=== PATIENT | female | born 1940 | race Two or more races ===

== ENCOUNTER 2017-10-31 03:57 | Inpatient (IN) | payer OTHER, MEDICAID ==
[~2017-10-31] VITALS: Ht 165.1 cm; Wt 69.9 kg
[2017-10-31 05:20] LABS: Eosinophils # (auto) 0 uL
[2017-10-31 05:22] LABS: Basophils # (auto) 0.1 uL; Basophils % (auto) 0.5 % (0.0-2.0); Eosinophils % (auto) 0.1 % (0.0-7.0); Hematocrit 38.1 % (36.0-46.0); Hemoglobin 12.7 g/dL (12.2-16.2); Lymphocytes # (auto) 1.2 uL; Lymphocytes % (auto) 7.4 % (10.0-50.0); Mean Corpuscular Hgb Conc. 33.3 g/dL (32.0-36.0); Mean Corpuscular Volume 74.9 fL (80.0-100.0); Monocytes # (auto) 0.4 uL; Monocytes % (auto) 2.5 % (0.0-12.0); Neutrophils # (auto) 14.2 uL; Neutrophils % (auto) 89.5 % (37.0-80.0); Platelet Count (auto) 387 10^3/uL (140-450); Red Blood Cells 5.09 10^6/uL (4.0-5.20); Red Cell Distribution Width 15.7 % (11.8-14.3); White Blood Cell 15.9 10^3/uL (4.4-10.8)
[2017-10-31 05:39] LABS: Alanine Aminotransferase 15 U/L (13-56); Albumin 3.4 g/dL (3.4-5.0); Anion Gap 9 (5-15); Aspartate Aminotransferase 13 U/L (15-37); BUN/Creatinine Ratio 20.6; Blood Urea Nitrogen 21 mg/dL (7-18); Calcium 7.5 mg/dL (8.5-10.1); Carbon Dioxide 25 mmol/L (21-32); Chloride 94 mmol/L (98-107); GFR African American 68 mL/min; GFR Non-African American 56 mL/min; Glucose 168 mg/dL (74-106); Magnesium 2.2 mg/dL (1.6-2.6); Potassium 3.3 mmol/L (3.5-5.1); Sodium 128 mmol/L (136-145)
[2017-10-31 05:44] LABS: Alkaline Phosphatase 49 U/L (45-117); Bilirubin, Total 0.5 mg/dL (0.2-1.0); Total Protein 7.2 g/dL (6.4-8.2)
[2017-10-31] MEDS ORDERED: SODIUM CHLORIDE 0.9% 1,000 ML IV ONE (06:15)
[2017-10-31] MEDS ORDERED: POTASSIUM CHL 20MEQ/100ML 100 ML IV ONE (06:15)
[2017-10-31 06:22] LABS: INR 0.92 (0.9-1.15); Prothrombin Time 9.9 sec (9.27-12.13)
[2017-10-31] MEDS ORDERED: DEXTROSE (50%) 50ML SYRG IV PRN (06:30)
[2017-10-31] MEDS ORDERED: ONDANSETRON HCL 4 MG/2 ML VIAL IV PRN (06:30)
[2017-10-31] MEDS ORDERED: ACETAMINOPHEN 500 MG TAB PO PRN (06:30)
[2017-10-31] MEDS ORDERED: HYDROcodone-ACET 5/325MG TAB PO PRN (06:30)
[2017-10-31 06:36] LABS: Urine Bacteria NONE SEEN /hpf (None Seen); Urine Blood Negative /uL (Negative); Urine Hyaline Cast FEW /lpf (0 - 2); Urine Mucus FEW (None Seen); Urine Specific Gravity 1.021 (1.001-1.035); Urine WBC 2 /hpf (0 - 5)
[2017-10-31] MEDS: InsuLIN REG 1unit/0.01ml Soln (100units/ml) SC SCH ×4 (07:00→21:59)
[2017-10-31] MEDS: ACCU-CHEK COMFORT CURVE STRIP VI SCH ×4 (07:00→21:56)
[2017-10-31 07:20] LABS: Partial Thromboplastin Time 26.1 sec (23.78-33.04)
[2017-10-31] MEDS ORDERED: ASPirin-EC 81 mg tab PO ONE (13:45)
[2017-10-31] MEDS: SODIUM CHLORIDE 0.9% 1,000 ML IV SCH ×2 (14:03→21:55)
[2017-10-31 17:00] VITALS: BP 133/62
[2017-10-31] MEDS ORDERED: GABA100C9 PO (18:15)
[2017-10-31] MEDS ORDERED: ALEN70TA2 PO (18:15)
[2017-10-31] MEDS ORDERED: METF-370 PO (18:15)
[2017-10-31] MEDS ORDERED: HYDR-2551 PO (18:15)
[2017-10-31] MEDS ORDERED: LOVA20TA4 PO (18:15)
[2017-10-31] MEDS ORDERED: LISI-646 PO (18:17)
[2017-10-31] MEDS: ATORVASTATIN 20 MG TAB PO SCH (21:55)
[2017-10-31 22:00] VITALS: BP 138/74
[2017-11-01] VITALS (7 sets, daily range): BP systolic 135–163; BP diastolic 65–84
[2017-11-01] MEDS: ACCU-CHEK COMFORT CURVE STRIP VI SCH (06:35)
[2017-11-01] MEDS: InsuLIN REG 1unit/0.01ml Soln (100units/ml) SC SCH (06:35)
[2017-11-01 07:50] LABS: Albumin 3.1 g/dL (3.4-5.0); BUN/Creatinine Ratio 14.5; Bilirubin, Total 0.6 mg/dL (0.2-1.0); Calcium 7.6 mg/dL (8.5-10.1); Magnesium 2.3 mg/dL (1.6-2.6); Potassium 3.4 mmol/L (3.5-5.1); Total Protein 6.4 g/dL (6.4-8.2)
[2017-11-01] MEDS: ASPirin-EC 81 mg tab PO SCH (08:45)
[2017-11-01 10:33] LABS: Basophils # (auto) 0 uL; Eosinophils # (auto) 0.1 uL; Lymphocytes # (auto) 1.6 uL; Lymphocytes % (auto) 19.8 % (10.0-50.0); Red Blood Cells 4.15 10^6/uL (4.0-5.20)
[2017-11-01 10:36] LABS: Basophils % (auto) 0.6 % (0.0-2.0); Eosinophils % (auto) 1.3 % (0.0-7.0); Hematocrit 32.1 % (36.0-46.0); Hemoglobin 10.6 g/dL (12.2-16.2); Mean Corpuscular Hemoglobin 25.5 pg (28.0-32.0); Mean Corpuscular Hgb Conc. 32.9 g/dL (32.0-36.0); Mean Corpuscular Volume 77.3 fL (80.0-100.0); Monocytes # (auto) 0.7 uL; Monocytes % (auto) 9.3 % (0.0-12.0); Neutrophils # (auto) 5.5 uL; Platelet Count (auto) 315 10^3/uL (140-450)
[2017-11-01] MEDS ORDERED: POTASSIUM CHL 20 Meq TABLET PO ONE (11:00)
[2017-11-01 12:08] LABS: % Iron Saturation 13.3 % (15-50)
[2017-11-01] MEDS: ATORVASTATIN 20 MG TAB PO SCH (21:53)
[2017-11-01] MEDS: SODIUM CHLORIDE 0.9% 1,000 ML IV SCH (21:53)
[2017-11-02 05:00] VITALS: BP 147/69
[2017-11-02 06:34] LABS: Basophils # (auto) 0.1 uL; Eosinophils # (auto) 0.2 uL; Monocytes # (auto) 0.9 uL; Red Cell Distribution Width 15.9 % (11.8-14.3)
[2017-11-02 06:36] LABS: Basophils % (auto) 0.7 % (0.0-2.0); Eosinophils % (auto) 2.9 % (0.0-7.0); Hematocrit 33.7 % (36.0-46.0); Hemoglobin 11.2 g/dL (12.2-16.2); Lymphocytes # (auto) 2.1 uL; Lymphocytes % (auto) 25.2 % (10.0-50.0); Mean Corpuscular Hemoglobin 25.3 pg (28.0-32.0); Mean Corpuscular Hgb Conc. 33.4 g/dL (32.0-36.0); Mean Corpuscular Volume 75.7 fL (80.0-100.0); Monocytes % (auto) 10.6 % (0.0-12.0); Neutrophils % (auto) 60.6 % (37.0-80.0); Platelet Count (auto) 325 10^3/uL (140-450); Red Blood Cells 4.45 10^6/uL (4.0-5.20); White Blood Cell 8.2 10^3/uL (4.4-10.8)
[2017-11-02 06:59] LABS: Calcium 8.2 mg/dL (8.5-10.1); Potassium 3.6 mmol/L (3.5-5.1)
[2017-11-02 07:01] LABS: BUN/Creatinine Ratio 16.4
[2017-11-02 08:00] VITALS: BP 158/86
[2017-11-02 09:13] VITALS: BP 158/80
[2017-11-02 12:04] VITALS: BP 156/70
[2017-11-02] MEDS: ASPirin-EC 81 mg tab PO SCH (12:06)
[2017-11-02 17:13] VITALS: BP 168/93
[2017-11-02] MEDS: ATORVASTATIN 20 MG TAB PO SCH (22:00)
[2017-11-02 22:01] VITALS: BP 168/83
[2017-11-03] MEDS ORDERED: cloNIDine HCL 0.1 MG TAB PO ONE (00:30)
[2017-11-03 06:06] VITALS: BP 120/72
[2017-11-03 08:00] VITALS: BP 130/66
[2017-11-03] MEDS ORDERED: ADENOSINE 59 MG in GIVE UN-DILUTED 0 ML IV ONE (08:00)
[2017-11-03 08:28] VITALS: BP 149/80
[2017-11-03] MEDS: ASPirin-EC 81 mg tab PO SCH (10:42)
[2017-11-03 12:17] VITALS: BP 145/73
[2017-11-03 16:41] VITALS: BP 149/74
== END 2017-11-03 17:05 | disposition home or self-care (01) | DRG 312 ==
LOC: ER 04:00 → TELE 04:01 → TELE-CENTR 16:25
PROVIDERS: ADMIT Nurse Practitioner Family; ATTEND Internal Medicine
DX: R55 Syncope and collapse (principal); E87.1 Hypo-osmolality and hyponatremia; I67.82 Cerebral ischemia; E87.5 Hyperkalemia; E87.6 Hypokalemia; D72.829 Elevated white blood cell count, unspecified; N18.9 Chronic kidney disease, unspecified; M48.00 Spinal stenosis, site unspecified; K59.00 Constipation, unspecified; I25.10 Atherosclerotic heart disease of native coronary artery without angina pectoris; H71.90 Unspecified cholesteatoma, unspecified ear; E11.22 Type 2 diabetes mellitus with diabetic chronic kidney disease; I13.10 Hypertensive heart and chronic kidney disease without heart failure, with stage 1 through stage 4 chronic kidney disease, or unspecified chronic kidney disease; H26.9 Unspecified cataract; E78.5 Hyperlipidemia, unspecified; E86.0 Dehydration; H70.92 Unspecified mastoiditis, left ear; I25.2 Old myocardial infarction; Z82.5 Family history of asthma and other chronic lower respiratory diseases; Z79.899 Other long term (current) drug therapy; Z98.41 Cataract extraction status, right eye
CPT/HCPCS: 36415; 70450; 70551; 71045; 72125; 78452; 80048; 80053; 80061; 81001; 82962; 83036; 83540; 83550; 83735; 83880; 84443; 84484; 85025; 85610; 85730; 87040; 87086; 93005; 93017; 93306; 93886; 95819; 96360; 96361; J0153; J1815; J3480

== ENCOUNTER 2018-08-11 00:44 | Emergency (ER) | payer OTHER, MEDICAID ==
[~2018-08-11] VITALS: Ht 160 cm; Wt 69.4 kg
[~2018-08-11 00:44] MED LIST: ALEN70TA2 PO; GABA100C9 PO; HYDR-2551 PO; LISI-646 PO; LOVA20TA4 PO; METF-370 PO
[2018-08-11 02:03] LABS: Basophils # (auto) 0.1 uL; Eosinophils # (auto) 0.2 uL; Lymphocytes # (auto) 1.9 uL
[2018-08-11 02:05] LABS: Basophils % (auto) 0.8 % (0.0-2.0); Eosinophils % (auto) 1.6 % (0.0-7.0); Hematocrit 31.3 % (36.0-46.0); Hemoglobin 10.8 g/dL (12.2-16.2); Lymphocytes % (auto) 17.8 % (10.0-50.0); Mean Corpuscular Hemoglobin 26.2 pg (28.0-32.0); Mean Corpuscular Hgb Conc. 34.6 g/dL (32.0-36.0); Mean Corpuscular Volume 75.7 fL (80.0-100.0); Monocytes # (auto) 0.9 uL; Monocytes % (auto) 8.6 % (0.0-12.0); Neutrophils # (auto) 7.7 uL; Neutrophils % (auto) 71.2 % (37.0-80.0); Platelet Count (auto) 323 10^3/uL (140-450); Red Blood Cells 4.14 10^6/uL (4.0-5.20); Red Cell Distribution Width 14.9 % (11.8-14.3); White Blood Cell 10.9 10^3/uL (4.4-10.8)
[2018-08-11 02:21] LABS: Alanine Aminotransferase 18 U/L (13-56); Albumin 3.8 g/dL (3.4-5.0); Anion Gap 13 (5-15); Aspartate Aminotransferase 19 U/L (15-37); BUN/Creatinine Ratio 12.7; Blood Urea Nitrogen 13 mg/dL (7-18); Calcium 8.7 mg/dL (8.5-10.1); Carbon Dioxide 25 mmol/L (21-32); Chloride 93 mmol/L (98-107); GFR African American 68 mL/min; GFR Non-African American 56 mL/min; Glucose 116 mg/dL (74-106); Potassium 3.1 mmol/L (3.5-5.1); Sodium 131 mmol/L (136-145)
[2018-08-11 02:26] LABS: Alkaline Phosphatase 53 U/L (45-117); Bilirubin, Total 0.4 mg/dL (0.2-1.0); Total Protein 7.8 g/dL (6.4-8.2)
[2018-08-11 03:01] LABS: Partial Thromboplastin Time 27.9 sec (23.64-32.05)
[2018-08-11 03:04] LABS: INR 0.91 (0.9-1.15)
[2018-08-11 07:07] LABS: Urine Bacteria NONE SEEN /hpf (None Seen); Urine Blood 1+ /uL (Negative); Urine Specific Gravity 1.006 (1.001-1.035); Urine WBC 1 /hpf (0 - 5)
[2018-08-11] MEDS ORDERED: SODIUM CHLORIDE 0.9% 1,000 ML IV ONE (07:21)
[2018-08-11] MEDS ORDERED: METOCLOPRAMIDE HCL 5MG/ml INJ 2ml VIAL IV ONE (07:30)
[2018-08-11] MEDS ORDERED: KETOROLAC TROMETH 30 MG/ML 1ML VIAL IV ONE (07:30)
[2018-08-11] MEDS ORDERED: POTASSIUM EFFERVESENT TAB 25 MEQ PO ONE (08:00)
[2018-08-11 10:06] VITALS: BP 136/66
== END 2018-08-11 10:05 | disposition home or self-care (01) ==
LOC: ER 00:44
DX: M47.892 Other spondylosis, cervical region (principal); E87.6 Hypokalemia; E04.1 Nontoxic single thyroid nodule; H70.92 Unspecified mastoiditis, left ear; E11.9 Type 2 diabetes mellitus without complications; E78.5 Hyperlipidemia, unspecified; I10 Essential (primary) hypertension; Z79.84 Long term (current) use of oral hypoglycemic drugs
CPT/HCPCS: 36415; 71045; 72125; 80053; 81001; 83735; 84484; 85025; 85610; 85730; 93005; 94761; 96374; 96375; 99284; J1885; J2765; J7030; 96361

== ENCOUNTER 2019-10-31 04:27 | Inpatient (IN) | payer OTHER, MEDICAID ==
[~2019-10-31] VITALS: Ht 167.6 cm; Wt 78.5 kg
[2019-10-31] MEDS ORDERED: ACCU-CHEK COMFORT CURVE STRIP VI ONE (04:45)
[2019-10-31 05:21] LABS: Basophils # (auto) 0 10 ^3/uL (0-0.2); Basophils % (auto) 0.3 % (0.0-2.0); Eosinophils # (auto) 0 10 ^3/uL (0-0.8); Hemoglobin 10.9 g/dL (12.2-16.2); Lymphocytes # (auto) 0.1 10 ^3/uL (0.4-5.4); Mean Corpuscular Volume 81.2 fL (80.0-100.0); Monocytes # (auto) 0 10 ^3/uL (0-1.3); Monocytes % (auto) 1.9 % (0.0-12.0); Neutrophils # (auto) 1.4 10 ^3/uL (1.6-8.6)
[2019-10-31 05:25] LABS: Urine Bacteria NONE SEEN /hpf (None Seen); Urine Blood 2+ /uL (Negative); Urine Specific Gravity 1.007 (1.001-1.035); Urine WBC <1 /hpf (0 - 5)
[2019-10-31] MEDS ORDERED: SODIUM CHLORIDE 0.9% 1,000 ML IV ONE (05:30)
[2019-10-31 05:31] LABS: Hematocrit 32.4 % (36.0-46.0); Lymphocytes % (auto) 8.9 % (10.0-50.0); Mean Corpuscular Hemoglobin 27.3 pg (28.0-32.0); Mean Corpuscular Hgb Conc. 33.6 g/dL (32.0-36.0); Neutrophils % (auto) 88.9 % (37.0-80.0); Platelet Count (auto) 212 10^3/uL (140-450); Red Blood Cells 3.99 10^6/uL (4.0-5.20); Red Cell Distribution Width 17.9 % (11.8-14.3)
[2019-10-31 05:33] LABS: White Blood Cell 1.5 10^3/uL (4.4-10.8)
[2019-10-31 05:50] LABS: Albumin 3.9 g/dL (3.4-5.0); BUN/Creatinine Ratio 14.9; Bilirubin, Total 1.2 mg/dL (0.2-1.0); Calcium 8.8 mg/dL (8.5-10.1); Total Protein 7.8 g/dL (6.4-8.2)
[2019-10-31 05:54] LABS: Potassium 2.7 mmol/L (3.5-5.1)
[2019-10-31] MEDS: POTASSIUM CHL 20MEQ/100ML 100 ML IV SCH ×2 (06:31→08:30)
[2019-10-31 06:54] LABS: Amylase 1269 U/L (25-115); Lipase 18695 U/L (73-393)
[2019-10-31] MEDS ORDERED: DEXTROSE (50%) 50ML SYRG IV PRN (09:15)
[2019-10-31] MEDS ORDERED: MORPHINE SULF INJ 2 MG/ML SYRINGE 1ML IV PRN (09:15)
[2019-10-31] MEDS ORDERED: cefTRIAXone 1GM/50ML D5W 50 ML IV ONE (09:15)
[2019-10-31] MEDS ORDERED: NITROGLYCERIN 0.4 MG SL TAB SL PRN (09:15)
--- NOTE | 2019-10-31 10:19 | NUR ---
Telemetry admit from [facility] admitted to Telemetry unit after SBAR received. Patient oriented to Flex rodriguez RN, unit, room, bed, and unit policies regarding patient care and visiting hours. Patient now on continuous telemetry monitoring, tele box # 63 and telemetry reading on arrival to unit is NSR 88. Patient, weighed by bedscale and encouraged to call if they need something. All questions and concerns addressed, patient verbalized understanding. Note: Patient was admitted to 275B per w/c from MRI after MRCP was done. Patient noted to be aa0x4, pleasant and cooperative and voiced no c/o pain/ discomfort at this time. Admission assessment done and charted. Plan of care, medications, treatments and safety discussed with patient and patient verbalized understanding. Bed was in lowest position with siderails upx2, brakes on and call light lwithin patient's reach. Will continue to monitor patient.
[2019-10-31] MEDS: SODIUM CHLORIDE 0.9% 1,000 ML IV SCH ×3 (11:05→22:28)
[2019-10-31] MEDS: FAMOTIDINE (10MG/ML) 2ML VL IV SCH (11:06)
[2019-10-31 12:03] VITALS: BP 139/78
[2019-10-31] MEDS: ACCU-CHEK COMFORT CURVE STRIP VI SCH ×3 (12:17→23:16)
[2019-10-31] MEDS: InsuLIN REG 1unit/0.01ml Soln (100units/ml) SC SCH ×3 (12:19→23:23)
[2019-10-31] MEDS: metroNIDAZOLE 500MG/100ML 100 ML IV SCH ×2 (14:12→22:26)
[2019-10-31] MEDS ORDERED: POTA-167 PO (14:25)
[2019-10-31] MEDS ORDERED: B-CO-5 PO (14:25)
[2019-10-31] MEDS: FILGRASTIM (TBO) 300 MCG/0.5 ML SYRG SC SCH (15:04)
[2019-10-31] MEDS ORDERED: OPTISON 3ml Vial for INJ IV ONE (15:17)
[2019-10-31 15:23] LABS: INR 1.03 (0.9-1.15); Partial Thromboplastin Time 25.2 sec (23.0-31.2)
[2019-10-31 16:38] VITALS: BP_SYST 121; BP_SYST 127; BP_DIAS 53; BP_DIAS 63
--- NOTE | 2019-10-31 19:24 | NUR ---
Opening Shift Note Assumed care of patient, awake and alert x 4. No S/S of distress/SOB or pain. Bed is in lowest position and lowest position and locked. Call light within reach. Board updated. Tele box number matches monitor and leads are in correct placement. Instructed on POC via physical damage appraiser JOANN Padgett and to call for assist PRN, will continue to monitor for changes Q1hr and PRN. Addendum: 11/01/19 at 2335 by ANIBAL ALMONTE RN Correction: JOANN Santos acted as physical damage appraiser.
--- NOTE | 2019-10-31 20:49 | NUR ---
Patient has temperature of 101.3. Cooling measures started. Will reassess in one hour.
[2019-10-31 22:00] VITALS: BP 126/63
[2019-10-31] MEDS ORDERED: ACETAMINOPHEN 325 MG TAB PO PRN (22:15)
[2019-11-01 05:00] VITALS: BP 108/62
[2019-11-01] MEDS: metroNIDAZOLE 500MG/100ML 100 ML IV SCH ×4 (05:52→21:03)
[2019-11-01] MEDS: SODIUM CHLORIDE 0.9% 1,000 ML IV SCH ×3 (05:52→20:30)
[2019-11-01] MEDS: ACCU-CHEK COMFORT CURVE STRIP VI SCH ×3 (05:52→18:27)
[2019-11-01] MEDS: InsuLIN REG 1unit/0.01ml Soln (100units/ml) SC SCH ×3 (06:00→18:00)
[2019-11-01 06:34] LABS: Basophils # (auto) 0 10 ^3/uL (0-0.2); Basophils % (auto) 0.3 % (0.0-2.0); Eosinophils # (auto) 0 10 ^3/uL (0-0.8); Eosinophils % (auto) 0.3 % (0.0-7.0); Hematocrit 25.3 % (36.0-46.0); Hemoglobin 8.8 g/dL (12.2-16.2); Lymphocytes # (auto) 0.5 10 ^3/uL (0.4-5.4); Lymphocytes % (auto) 13.8 % (10.0-50.0); Mean Corpuscular Hemoglobin 28.1 pg (28.0-32.0); Mean Corpuscular Hgb Conc. 34.7 g/dL (32.0-36.0); Monocytes # (auto) 0.1 10 ^3/uL (0-1.3); Monocytes % (auto) 1.7 % (0.0-12.0); Neutrophils # (auto) 2.9 10 ^3/uL (1.6-8.6); Neutrophils % (auto) 83.9 % (37.0-80.0); Nucleated Red Blood Cells % 0.2 %; Platelet Count (auto) 133 10^3/uL (140-450); Red Blood Cells 3.13 10^6/uL (4.0-5.20); Red Cell Distribution Width 18.4 % (11.8-14.3); White Blood Cell 3.4 10^3/uL (4.4-10.8)
--- NOTE | 2019-11-01 06:49 | NUR ---
Patient taken down to Pre-Op for ERCP with tele-box.
[2019-11-01 06:56] LABS: Albumin 2.8 g/dL (3.4-5.0); BUN/Creatinine Ratio 16.5
[2019-11-01 06:57] LABS: Potassium 2.9 mmol/L (3.5-5.1)
[2019-11-01] MEDS ORDERED: POTASSIUM CHL 20MEQ/100ML 100 ML IV ONE ×4 (07:02→12:26)
--- NOTE | 2019-11-01 07:04 | NUR ---
Patient returned to room 275a. Per OR charge nurse, anesthesiologist wants Potassium Chloride Zain 20 mEq to be given now and to then reassess potassium again after giving rider. Notify OR charge as soon as results come in. If potassium is WNL, patient may be taken back to pre-op.
[2019-11-01 07:17] LABS: Bilirubin, Total 0.6 mg/dL (0.2-1.0); Total Protein 6.3 g/dL (6.4-8.2)
[2019-11-01] MEDS: cefTRIAXone 1GM/50ML D5W 50 ML IV SCH (08:40)
[2019-11-01 09:00] VITALS: BP 122/68
[2019-11-01] MEDS ORDERED: FAMOTIDINE (10MG/ML) 2ML VL IV SCH (10:00)
[2019-11-01] MEDS: FAMOTIDINE (10MG/ML) 2ML VL IV SCH (10:12)
[2019-11-01] MEDS: FILGRASTIM (TBO) 300 MCG/0.5 ML SYRG SC SCH (11:16)
[2019-11-01 11:37] LABS: Albumin 3.2 g/dL (3.4-5.0); Calcium 7.5 mg/dL (8.5-10.1); Potassium 3.1 mmol/L (3.5-5.1)
[2019-11-01 11:40] LABS: BUN/Creatinine Ratio 14.2; Bilirubin, Total 0.7 mg/dL (0.2-1.0); Total Protein 7.3 g/dL (6.4-8.2)
--- NOTE | 2019-11-01 12:00 | NUR ---
NOTIFY PRE OP RN ABOUT K+ RESULT OF 3.1 AFTER K RIDER. WILL CALL ME BACK IF DR. CALLE WILL HAVE ERCP DONE TODAY.
--- NOTE | 2019-11-01 12:10 | NUR ---
PRE OP RN CALLED AND STATED THAT THEY ARE GOING TO HAVE ERCP DONE TODAY AND WANT THE PATIENT DOWN TO PRE OP. PATIENT MADE AWARE OF IT.
--- NOTE | 2019-11-01 12:25 | NUR ---
BROUGHT PATIENT DOWN TO PACU FOR ERCP PER BED WITH TELE BOX ON IN STABLE CONDITION.
[2019-11-01] MEDS ORDERED: IOHEXOL 300 MG/ML 100ML BOTTLE IJ ONE (12:46)
[2019-11-01] MEDS ORDERED: MIDAZOLAM HCL 1MG/1ML-2 ML VIAL ONE (13:10)
[2019-11-01] MEDS ORDERED: MEPERIDINE HCL (25 MG/ML) 1ML VIAL ONE (13:10)
[2019-11-01] MEDS ORDERED: fentaNYL CITRATE 100 MCG/2 ML VL ONE (13:10)
[2019-11-01] MEDS ORDERED: GLUCAGON HYDROCHLORIDE (RDNA) 1 MG VIAL IV ONE (13:45)
[2019-11-01] MEDS ORDERED: ONDANSETRON HCL 4 MG/2 ML VIAL ONE (14:28)
[2019-11-01] MEDS ORDERED: ePHEDrine SULFATE 50 MG/ML AMP IV PRN (14:30)
[2019-11-01] MEDS ORDERED: LABETALOL HCL 5 MG/ML 4ML SYRINGE IV PRN (14:30)
[2019-11-01] MEDS ORDERED: MIDAZOLAM HCL 1MG/1ML-2 ML VIAL IV PRN (14:30)
[2019-11-01] MEDS ORDERED: ONDANSETRON HCL 4 MG/2 ML VIAL IV PRN (14:30)
[2019-11-01] MEDS ORDERED: DexAMETHasone SOD PHOS 10MG/1ML VIAL INJ ONE (14:44)
[2019-11-01] MEDS ORDERED: PROPOFOL 10 MG/ML 20 ML IV ONE (14:44)
--- NOTE | 2019-11-01 15:37 | NUR ---
PATIENT RETURNED TO HER ROOM PER BED S/P ERCP SLEEPING BUT EASILY AWAKENED WITH O2 AT 4L/NC. REPORT RECEIVED FROM JAIMIE HAYS FROM PACU PRIOR TO PATIENT'S RETURN. PATIENT VOICED NO C/O AGUILAR AND WAS IN NO DISTRESS. WILL CONTINUE TO MONITOR PATIENT.
[2019-11-01 17:00] VITALS: BP 115/63
--- NOTE | 2019-11-01 17:00 | NUR ---
Patient more awake at this time and went to the bathroom to void with steady gait. No c/o pain/ discomfort and patient was in no distress. Will continue to monitor patient.
--- NOTE | 2019-11-01 19:35 | NUR ---
Opening Shift Note Assumed care of patient, awake and alert x 4. No S/S of distress/SOB or pain. Bed is in lowest position and lowest position and locked. Call light within reach. Board updated. Tele box number matches monitor and leads are in correct placement. Instructed on POC via criminal justice professor JOANN Padgett and to call for assist PRN, will continue to monitor for changes Q1hr and PRN.
--- NOTE | 2019-11-01 20:10 | NUR ---
Spoke to MD Garner and confirmed that he is aware of the ERCP results from today. MD Gu does not intend to performed surgery tomorrow, only that patient should be kept NPO and to test Amylase and Lipase in the AM.
[2019-11-01] MEDS: MORPHINE SULF INJ 2 MG/ML SYRINGE 1ML IV PRN (21:14)
[2019-11-01 22:00] VITALS: BP 143/72
[2019-11-02] MEDS: ACCU-CHEK COMFORT CURVE STRIP VI SCH ×4 (00:02→17:12)
--- NOTE | 2019-11-02 00:10 | NUR ---
Holding regular insulin for blood glucose of 140 mg/dl. Patient is currently NPO.
[2019-11-02] MEDS: SODIUM CHLORIDE 0.9% 1,000 ML IV SCH ×4 (01:08→21:44)
[2019-11-02 05:00] VITALS: BP 145/78
[2019-11-02 05:46] LABS: Hematocrit 25.8 % (36.0-46.0); Hemoglobin 8.7 g/dL (12.2-16.2); Mean Corpuscular Hemoglobin 27.7 pg (28.0-32.0); Mean Corpuscular Hgb Conc. 33.8 g/dL (32.0-36.0); Platelet Count (auto) 94 10^3/uL (140-450); Red Blood Cells 3.15 10^6/uL (4.0-5.20); Red Cell Distribution Width 18.8 % (11.8-14.3); White Blood Cell 5.3 10^3/uL (4.4-10.8)
[2019-11-02 05:52] LABS: Basophils % (manual) 0 (0.0-2.0); Blast Cells 0; Eosinophils % (manual) 0 (0-7); Myelocytes % 0; Promyelocytes % 0; Reactive Lymphocytes 0
[2019-11-02 06:07] LABS: Albumin 2.5 g/dL (3.4-5.0); BUN/Creatinine Ratio 18.4; Calcium 7.3 mg/dL (8.5-10.1); Magnesium 1.6 mg/dL (1.6-2.6); Potassium 3.9 mmol/L (3.5-5.1)
[2019-11-02 06:13] LABS: Band Neutrophils % (manual) 18; Lymphocytes % (manual) 12 (10.0-50.0); Metamyelocytes % 2; Monocytes % (manual) 2 (0-12)
[2019-11-02 06:15] LABS: Bilirubin, Total 3.3 mg/dL (0.2-1.0); Total Protein 6.1 g/dL (6.4-8.2)
[2019-11-02] MEDS: metroNIDAZOLE 500MG/100ML 100 ML IV SCH ×3 (06:25→21:44)
[2019-11-02] MEDS: InsuLIN REG 1unit/0.01ml Soln (100units/ml) SC SCH ×4 (06:45→17:14)
--- NOTE | 2019-11-02 08:00 | NUR ---
Morning note Patient resting in bed with even and unlabored respirations, no distress noted. Instructed patient through translation on POC, fall precautions and to call for assistance as needed. Patient verbalized understanding. Fall precautions in place with call light within reach.
[2019-11-02] MEDS: FILGRASTIM (TBO) 300 MCG/0.5 ML SYRG SC SCH (08:44)
[2019-11-02] MEDS: FAMOTIDINE (10MG/ML) 2ML VL IV SCH (08:44)
[2019-11-02] MEDS: cefTRIAXone 1GM/50ML D5W 50 ML IV SCH (08:44)
[2019-11-02 09:00] VITALS: BP 128/69
[2019-11-02] MEDS: ONDANSETRON HCL 4 MG/2 ML VIAL IV PRN ×3 (10:43→20:50)
--- NOTE | 2019-11-02 11:00 | NUR ---
Family called for an update Password obtained. Update provided. Phone call transferred to bedside phone.
--- NOTE | 2019-11-02 11:14 | NUR ---
Family called for an update Password obtained. Update provided.
[2019-11-02 13:00] VITALS: BP 147/88
[2019-11-02] MEDS: MORPHINE SULF INJ 2 MG/ML SYRINGE 1ML IV PRN ×2 (13:35→18:35)
--- NOTE | 2019-11-02 13:50 | NUR ---
was at bedside - Dr. Banuelos This RN was at bedside. POC translated to patient. Patient verbalized understanding. Notified MD of current lab results. MD aware.
--- NOTE | 2019-11-02 15:19 | NUR ---
Nutrition Assessment Notes Please refer to link for full assessment notes. Est Energy needs: 7239-2748 kcals (20-23 kcal/kgBW) Est Protein needs: 73-80 gms/day (1.0-1.1 gm/kgBW) Will continue to monitor and reassess prn. Addendum: 11/02/19 at [address] Amended: Links added.
[2019-11-02 17:00] VITALS: BP 156/72
--- NOTE | 2019-11-02 18:07 | NUR ---
Family called for an update Password obtained. Update provided. Phone call transferred to bedside phone.
--- NOTE | 2019-11-02 18:19 | NUR ---
Patient had episode of vomiting No blood noted. Patient has been medicated for nausea per MD order.
--- NOTE | 2019-11-02 18:26 | NUR ---
Closing note Patient resting in bed with even and unlabored respirations, no distress noted. Fall precautions in place with call light within reach.
--- NOTE | 2019-11-02 19:01 | NUR ---
Care endorsed to LIS Grimm.
--- NOTE | 2019-11-02 20:52 | NUR ---
open note assumed care of pt. upon entering room pt awake, alert and oriented. pt on room air no distress noted or expressed. pt oriented to this nurse and updated on plan of care. pt reports some nausea this nurse to medicate per MD and MAR order. pt denies any pain at this time. pt bed locked, low and 2x rails up. call light in reach, this nurse to round q1hr and prn.
[2019-11-02 22:00] VITALS: BP 167/80
[2019-11-02] MEDS ORDERED: LISINOPRIL 20 MG TAB PO ONE (22:15)
[2019-11-03] MEDS: MORPHINE SULF INJ 2 MG/ML SYRINGE 1ML IV PRN ×3 (00:25→13:40)
[2019-11-03 05:00] VITALS: BP 164/86
[2019-11-03] MEDS: SODIUM CHLORIDE 0.9% 1,000 ML IV SCH (05:37)
[2019-11-03] MEDS: metroNIDAZOLE 500MG/100ML 100 ML IV SCH ×3 (05:46→23:29)
[2019-11-03 06:16] LABS: Hemoglobin 9.9 g/dL (12.2-16.2)
[2019-11-03 06:18] LABS: Hematocrit 27.9 % (36.0-46.0); Mean Corpuscular Hemoglobin 28.3 pg (28.0-32.0); Mean Corpuscular Hgb Conc. 35.3 g/dL (32.0-36.0); Mean Corpuscular Volume 80.2 fL (80.0-100.0); Platelet Count (auto) 55 10^3/uL (140-450); Red Blood Cells 3.48 10^6/uL (4.0-5.20); Red Cell Distribution Width 19.9 % (11.8-14.3); White Blood Cell 17.4 10^3/uL (4.4-10.8)
[2019-11-03] MEDS: InsuLIN REG 1unit/0.01ml Soln (100units/ml) SC SCH ×4 (06:22→16:45)
[2019-11-03] MEDS: ACCU-CHEK COMFORT CURVE STRIP VI SCH ×4 (06:22→16:41)
[2019-11-03 06:23] LABS: Basophils % (manual) 0 (0.0-2.0); Blast Cells 0; Eosinophils % (manual) 0 (0-7); Promyelocytes % 0; Reactive Lymphocytes 0
[2019-11-03 06:51] LABS: BUN/Creatinine Ratio 17.4; Bilirubin, Total 13.9 mg/dL (0.2-1.0); Calcium 7.6 mg/dL (8.5-10.1); Total Protein 6.1 g/dL (6.4-8.2)
[2019-11-03] MEDS: FILGRASTIM (TBO) 300 MCG/0.5 ML SYRG SC SCH (07:18)
--- NOTE | 2019-11-03 07:18 | NUR ---
RE: medication held Tbo-Filgrastim held d/t elevated WBC.
--- NOTE | 2019-11-03 07:55 | NUR ---
Received critical potassium level Paged on-call hospitalist to notify.
[2019-11-03 07:59] LABS: Potassium 2.9 mmol/L (3.5-5.1)
[2019-11-03] MEDS: FAMOTIDINE (10MG/ML) 2ML VL IV SCH (08:04)
[2019-11-03] MEDS: ONDANSETRON HCL 4 MG/2 ML VIAL IV PRN ×2 (08:05→13:40)
[2019-11-03] MEDS: cefTRIAXone 1GM/50ML D5W 50 ML IV SCH (08:05)
[2019-11-03] MEDS: LISINOPRIL 20 MG TAB PO SCH (08:08)
--- NOTE | 2019-11-03 08:08 | NUR ---
Patient reports N/V Patient medicated per MD order. Patient has emesis bag at bedside. Respirations even and unlabored, no distress noted. Call light within reach.
[2019-11-03 09:00] LABS: Band Neutrophils % (manual) 15; Lymphocytes % (manual) 17 (10.0-50.0); Metamyelocytes % 1; Monocytes % (manual) 2 (0-12); Myelocytes % 2
[2019-11-03 09:11] VITALS: BP 155/73
--- NOTE | 2019-11-03 09:13 | NUR ---
Paged Dr. Banuelos RE: critical potassium level.
--- NOTE | 2019-11-03 09:17 | NUR ---
Notified Dr. Banuelos RE: abnormal lab values Notified MD of abnormal value for: WBC, Potassium, PLT, Total Bilirubin, AST, ALT and Alkaline phos. MD verbalized understanding. Orders received and read back to verify.
--- NOTE | 2019-11-03 09:22 | NUR ---
RE: Moira Called pharmacy to request medication be sent to the unit. tattoo technician verbalized understanding.
[2019-11-03] MEDS ORDERED: VANCOMYCIN PER PHARMACY 0 MG IV SCH (09:30)
[2019-11-03] MEDS ORDERED: POTASSIUM CHLORIDE 60 MEQ, LIDOCAINE 1% (LOCAL ANESTH.) 6 ML in SODIUM CHL 0.9% 500 ML IV ONE (09:30)
--- NOTE | 2019-11-03 11:10 | NUR ---
IV started 22g IV started to the LWR with aseptic technique. IV secured and IV education translated to the patient. Patient verbalized understanding. Call light within reach.
[2019-11-03] MEDS: D5W/SOD CHL 0.45%/KCL 40MEQ 1,000 ML IV SCH ×2 (11:32→19:53)
--- NOTE | 2019-11-03 11:32 | NUR ---
Patient transferred to room 270B Patient ambulated to room with a steady gait accompanied by staff member. All personal belongings transferred with the patient.
[2019-11-03] MEDS ORDERED: VANCOMYCIN 1GM/250ML 250 ML IV ONE (12:00)
--- NOTE | 2019-11-03 12:00 | NUR ---
RE: Scheduled Vancomycin Medication to be administered after lab obtains second set of blood cultures.
[2019-11-03 12:21] VITALS: BP 148/90
--- NOTE | 2019-11-03 13:50 | NUR ---
Patient reports N/V with ABD pain Patient medicated per MD order. Respirations even and unlabored, no distress noted.
--- NOTE | 2019-11-03 14:10 | NUR ---
POC discussed with MD POC discussed with Dr. Banuelos. Notified MD of patient's report of N/V. Order received and read back to verify.
--- NOTE | 2019-11-03 14:45 | NUR ---
RE: Flagyl IV access to the LWR infiltrated. K-rider continues to be administered in LAC. Will administer Flagyl IV once K-rider has completed.
[2019-11-03 16:40] VITALS: BP 152/74
--- NOTE | 2019-11-03 16:53 | NUR ---
Patient resting in bed; denies N/V Patient resting in bed with even and unlabored respirations, no distress noted. Patient requesting bed bath prior to surgery. Endorsed to Adrienne, professional nursing assistant. Fall precautions in place with call light within reach.
[2019-11-03 18:22] LABS: BUN/Creatinine Ratio 17.9; Calcium 7.1 mg/dL (8.5-10.1); Potassium 3.2 mmol/L (3.5-5.1)
--- NOTE | 2019-11-03 18:42 | NUR ---
Paged on-call hospitalist RE: current potassium level Dr. Spence on-call hospitalist.
--- NOTE | 2019-11-03 18:46 | NUR ---
Notified on-call hospitalist of current potassium lab value Dr. Spence verbalized understanding. Order received and read back to verify.
--- NOTE | 2019-11-03 18:48 | NUR ---
RE: Moira Called pharmacy to request medication be sent to the unit. fire protection equipment technician verbalized understanding.
--- NOTE | 2019-11-03 19:10 | NUR ---
Care endorsed to LIS Grimm. Patient resting in bed with even and unlabored respirations, no distress noted. Fall precautions in place with call light within reach.
[2019-11-03] MEDS ORDERED: POTASSIUM CHLORIDE 40 MEQ, LIDOCAINE 1% (LOCAL ANESTH.) 4 ML in SODIUM CHL 0.9% 100 ML IV ONE (19:30)
--- NOTE | 2019-11-03 20:02 | NUR ---
open note assumed care of pt. upon entering room pt awake and alert, on 2L nc no s/s distress noted or expressed. pt denies any pain, this nurse updated pt on plan of care via educational sign language interpreter. pt bed locked, low and 2x rails up. call light in reach, this nurse to round q1hr and prn. pt encouraged to call as needed.
[2019-11-03 22:00] VITALS: BP 160/77
[2019-11-04 05:00] VITALS: BP 155/89
[2019-11-04] MEDS: metroNIDAZOLE 500MG/100ML 100 ML IV SCH (06:09)
[2019-11-04] MEDS: D5W/SOD CHL 0.45%/KCL 40MEQ 1,000 ML IV SCH ×2 (06:09→18:13)
[2019-11-04] MEDS: ACCU-CHEK COMFORT CURVE STRIP VI SCH ×5 (06:09→23:50)
[2019-11-04] MEDS: InsuLIN REG 1unit/0.01ml Soln (100units/ml) SC SCH ×5 (06:10→23:51)
[2019-11-04 06:20] LABS: Hemoglobin 7.8 g/dL (12.2-16.2)
[2019-11-04 06:22] LABS: Hematocrit 22.3 % (36.0-46.0); Mean Corpuscular Hemoglobin 27.4 pg (28.0-32.0); Mean Corpuscular Hgb Conc. 34.9 g/dL (32.0-36.0); Mean Corpuscular Volume 78.3 fL (80.0-100.0); Red Blood Cells 2.85 10^6/uL (4.0-5.20); White Blood Cell 12.7 10^3/uL (4.4-10.8)
[2019-11-04 06:31] LABS: BUN/Creatinine Ratio 18.3; Calcium 7.4 mg/dL (8.5-10.1); Potassium 3.8 mmol/L (3.5-5.1)
[2019-11-04 06:42] LABS: Platelet Count (auto) 22 10^3/uL (140-450); Red Cell Distribution Width 20.9 % (11.8-14.3)
[2019-11-04 06:43] LABS: Basophils % (manual) 0 (0.0-2.0); Blast Cells 0; Eosinophils % (manual) 0 (0-7); Reactive Lymphocytes 0
--- NOTE | 2019-11-04 07:15 | NUR ---
Opening Shift Note Assumed care of patient, who is alert and oriented x4. Respirations are even and unlabored. No S/S of distress/SOB or pain. Bed is low, locked with 2x side rails up. Call light is within reach. Instructed on POC and to call for assist PRN, will continue to monitor for changes Q1hr and PRN.
[2019-11-04 07:49] LABS: Band Neutrophils % (manual) 16; Lymphocytes % (manual) 11 (10.0-50.0); Metamyelocytes % 16; Monocytes % (manual) 4 (0-12); Myelocytes % 7; Promyelocytes % 1
--- NOTE | 2019-11-04 08:15 | NUR ---
Patient taken to pre-op Patient taken to pre-op for scheduled surgery with Dr. Gu. IV to L AC patent and intact. Consents signed and filed in chart. No distress noted upon departure.
[2019-11-04 08:48] VITALS: BP 179/85
[2019-11-04] MEDS: cefTRIAXone 1GM/50ML D5W 50 ML IV SCH (09:29)
[2019-11-04] MEDS: MORPHINE SULF INJ 2 MG/ML SYRINGE 1ML IV PRN ×2 (09:30→22:34)
[2019-11-04] MEDS: LISINOPRIL 20 MG TAB PO SCH (09:30)
[2019-11-04] MEDS: PROMETHAZINE HCL 25 MG/ML 1ML IV PRN (09:30)
--- NOTE | 2019-11-04 10:00 | NUR ---
Dr. Deal at bedside Dr. Shaikh jose. Updating patient on POC. New orders received to start PPN nutrition. Orders read back and verified. Made MD aware of elevated blood pressure. MD to input new orders for blood pressure control. Will continue to monitor Q1hr and PRN.
[2019-11-04] MEDS: FAMOTIDINE (10MG/ML) 2ML VL IV SCH (10:05)
[2019-11-04] MEDS ORDERED: PPN PER PHARMACY 0 ML IV SCH (10:15)
[2019-11-04] MEDS: MEROPENEM 500MG IVPB 50 ML IV SCH ×2 (11:17→22:33)
[2019-11-04] MEDS: ENALAPRILAT 1.25 MG/ML-1ML VIAL IV PRN ×2 (11:30→22:18)
[2019-11-04 11:32] LABS: Magnesium 2.2 mg/dL (1.6-2.6); Pre Albumin 13.1 mg/dL (20.0-40.0)
[2019-11-04 11:39] LABS: Phosphorus 0.8 mg/dL (2.5-4.90)
--- NOTE | 2019-11-04 11:40 | NUR ---
Abhishek Deal RE: critical lab Received a call from lab. Critical Phosphorus: 0.8 Abhishek TAYLOR to make aware of critical lab value.
[2019-11-04 12:45] LABS: Hepatitis A Ab IgM Negative
[2019-11-04 12:46] LABS: Hepatitis B Core IgM Negative; Hepatitis B Surface Antigen Negative (Negative); Hepatitis C Antibody Negative (Negative)
[2019-11-04 13:00] VITALS: BP 169/75
[2019-11-04] MEDS ORDERED: POTASSIUM PHOSPHATE 22 MEQ in SODIUM CHL 0.9% 100 ML IV ONE (13:00)
--- NOTE | 2019-11-04 13:39 | NUR ---
Abhishek Deal RE: Blood pressure. This nurse administered PRN Enalapril BP: 168/78 HR:75. Upon reassessment BP: 169/75 HR: 75. Abhishek TAYLOR to notify.
--- NOTE | 2019-11-04 13:45 | NUR ---
Midline Placement: Patient educated on need for midline placement. All risks and benefits explained and all questions and concerns addresses prior to procedure. 18 g/10 cm midline inserted via Left Basilic vein using Ultrasound. Sterile technique utilized. Blood return obtained from the single lumen and flushed easily with NS using proper technique. Midline secured with saline lock; biodisc and occlusive dressing applied. Primary RN Rea notified. Midline lot # [id number]
--- NOTE | 2019-11-04 13:52 | NUR ---
Nutrition Followup Note Wt 77.0kg Pt was sleeping at time of rounds with no family at bedsides. Pt is NPO d/t acute pancreatitis, pt with TPN ordered at 42 ml/hr which provides 540 kcal, 50g protein, 340 NPC. This provides 32-37% of energy needs and 63-68% of protein needs. Consider advancing TPN to meet >75% of needs Est Energy needs: 4624-1383 kcals (20-23 kcal/kgBW) Est Protein needs: 73-80 gms/day (1.0-1.1 gm/kgBW) Will continue to monitor and reassess prn. Labs: Na 146H, BUN 41H, Creat 2.24H, GLUC 129H, Alb 2.8L Ca 7.4L BM: Pt with 1 BM 11/02 per RN note Skin: Bs 20 low risk, full details in behavioral health care manager note. PES: 1) Increased nutrient needs r/t pt with no PO intake aeb pt is currently NPO 2) Altered nutrition related lab values r/t current medical condition aeb elevated pancreatic enzymes, hyperglycemia, hyperbilirubinemia, elev LFTs, mod hypoalbuminemia Comments: Will continue to monitor PO status, skin status, pertinent labs and weight trends. Will f/u in 2-3 days. 1) Continue to carefully monitor pt NPO status 2) Gradually advance pt to CCHO 45g oral diet when medically feasible and as tolerated 3) Continue current plan of care Expected Outcomes/Goals: Pt to advance to an oral diet Pt labs to improve
[2019-11-04] MEDS ORDERED: VANCOMYCIN 1GM/250ML 250 ML IV ONE (14:00)
--- NOTE | 2019-11-04 14:48 | NUR ---
Paging MD Paging MD again in regards to blood pressure. Waiting for call back.
[2019-11-04 17:00] VITALS: BP 166/83
--- NOTE | 2019-11-04 17:47 | NUR ---
Paging councilperson MD Dr. Spence RE: Blood pressure Current BP: 175/81 HR: 79. Paging MD to make aware of elevated BP. Patient is asymptomatic at this time. Waiting for call back.
--- NOTE | 2019-11-04 17:50 | NUR ---
Received call back Received new orders for Labetalol IV. Orders read back and verified. (see orders).
[2019-11-04] MEDS ORDERED: LABETALOL HCL 5 MG/ML 4ML SYRINGE IV ONE (18:00)
[2019-11-04] MEDS ORDERED: DEXTROSE (50%) 50ML SYRG IV SCH (18:00)
[2019-11-04 19:12] VITALS: BP 152/84
--- NOTE | 2019-11-04 19:25 | NUR ---
Opening Shift Note Received report from Rea HAYS. Assumed care of patient, awake and alert. No S/S of distress/SOB or pain. Instructed on POC and to call for assist PRN, will continue to monitor for changes Q1hr and PRN.
[2019-11-04] MEDS ORDERED: PPN PER PHARMACY IV NR ×5 (20:00)
[2019-11-04 22:00] VITALS: BP 170/87
--- NOTE | 2019-11-04 23:30 | NUR ---
BP: 170/87, PRN Enalapril given. Reassessed BP, now 152/69. Continue care.
[2019-11-05] VITALS (7 sets, daily range): BP systolic 161–182; BP diastolic 69–84
[2019-11-05] MEDS: MORPHINE SULF INJ 2 MG/ML SYRINGE 1ML IV PRN ×2 (03:51→23:58)
[2019-11-05] MEDS: D5W/SOD CHL 0.45%/KCL 40MEQ 1,000 ML IV SCH ×3 (04:20→21:45)
[2019-11-05] MEDS: ACCU-CHEK COMFORT CURVE STRIP VI SCH ×4 (05:45→23:50)
[2019-11-05] MEDS: ENALAPRILAT 1.25 MG/ML-1ML VIAL IV PRN (05:46)
[2019-11-05] MEDS: InsuLIN REG 1unit/0.01ml Soln (100units/ml) SC SCH ×4 (05:50→23:59)
[2019-11-05 06:03] LABS: Hemoglobin 7.2 g/dL (12.2-16.2)
[2019-11-05 06:05] LABS: Hematocrit 20.6 % (36.0-46.0); Mean Corpuscular Hemoglobin 27.4 pg (28.0-32.0); Mean Corpuscular Hgb Conc. 34.9 g/dL (32.0-36.0); Mean Corpuscular Volume 78.5 fL (80.0-100.0); Red Blood Cells 2.62 10^6/uL (4.0-5.20); White Blood Cell 11.5 10^3/uL (4.4-10.8)
[2019-11-05 06:15] LABS: Red Cell Distribution Width 20.6 % (11.8-14.3)
[2019-11-05 06:17] LABS: Platelet Count (auto) 10 10^3/uL (140-450)
[2019-11-05 06:20] LABS: Basophils % (manual) 0 (0.0-2.0); Blast Cells 0; Eosinophils % (manual) 0 (0-7); Reactive Lymphocytes 0
[2019-11-05 06:23] LABS: Albumin 2.6 g/dL (3.4-5.0); Calcium 7.6 mg/dL (8.5-10.1); Potassium 3.6 mmol/L (3.5-5.1)
[2019-11-05 06:33] LABS: BUN/Creatinine Ratio 24.6; Bilirubin, Total 3.8 mg/dL (0.2-1.0); Phosphorus 2.1 mg/dL (2.5-4.90); Total Protein 5.7 g/dL (6.4-8.2)
--- NOTE | 2019-11-05 06:35 | NUR ---
Hospitalist paged re critical platelet of 10,000. Awaiting for call back.
[2019-11-05 06:40] LABS: Band Neutrophils % (manual) 6; Lymphocytes % (manual) 6 (10.0-50.0); Metamyelocytes % 2; Monocytes % (manual) 1 (0-12); Myelocytes % 29; Promyelocytes % 14
--- NOTE | 2019-11-05 07:15 | NUR ---
Received call back from hospitalist Awais Oliveira with order to transfuse 1 unit of platelet, will carry out the order.
--- NOTE | 2019-11-05 08:23 | NUR ---
Called Blood Bank Spoke to Allie from blood bank in regards to ordered unit of platelets. Per Allie, we do not have any available right now and platelets must be ordered. She will contact this nurse when platelets are ready for pickup driver.
--- NOTE | 2019-11-05 08:40 | NUR ---
Dr. Cline at nurses station Discussing POC with this nurse. New orders received. Orders read back and verified.
[2019-11-05] MEDS ORDERED: HYDROmorphone HCL 2 MG/ML VL IV ONE (09:00)
[2019-11-05] MEDS: PROMETHAZINE HCL 25 MG/ML 1ML IV PRN ×2 (09:19→20:27)
[2019-11-05] MEDS: FAMOTIDINE (10MG/ML) 2ML VL IV SCH (09:19)
[2019-11-05] MEDS: MEROPENEM 500MG IVPB 50 ML IV SCH ×2 (09:20→21:31)
[2019-11-05] MEDS ORDERED: HYDROmorphone HCL 2 MG/ML VL IV PRN (09:45)
[2019-11-05] MEDS ORDERED: LABETALOL HCL 5 MG/ML 4ML SYRINGE IV PRN (09:45)
[2019-11-05] MEDS ORDERED: POTASSIUM PHOSP 22MEQ(15MMOLE) in NS 100 ML IV ONE (11:00)
--- NOTE | 2019-11-05 12:20 | NUR ---
Dr. Foster and Dr. Oneill at bedside Discussing POC with patient. New orders received/ carried out. Addendum: 11/05/19 at 1237 by Rea Moreno RN RN WRONG PATIENT
--- NOTE | 2019-11-05 15:31 | NUR ---
Platelet transfusion Time transfusion started 1440 VS: T:98.6 HR:85 RR:16 BP:167/84 1455 VS: T:98.6 HR:83 RR:16 BP:166/79. No transfusion reaction noted or expressed at this time.
--- NOTE | 2019-11-05 16:45 | NUR ---
[facility] received to [place] via hospital bed on monitor and storage bin tender, and portable 02. Patient connected to unit monitoring and oxygen, [facility] Platelet transfusion in progress, will continue to monitor patient for transfusion reaction. See interventions for complete assessment. Patient primary Arabic speaking but able to understand some Belarusian. Patient oriented to Alejandra rodriguez RN, unit, room, bed, and unit policies regarding patient care and visiting hours. All questions and concerns addressed, patient verbalized understanding. Bed locked on low position, side rails up x2, bed alarms on at all times, call yu within reach, instructed to call for needed assistance. Will continue to monitor.
--- NOTE | 2019-11-05 16:47 | NUR ---
Transferred to [place] Patient transferred to [place] Room 264. Report given and care endorsed to Rosey HAYS. All questions answered. No distress noted upon departure.
--- NOTE | 2019-11-05 17:00 | NUR ---
IV insertion IV access obtained, via clean sterile technique by inserting 22 gauge catheter at LT AC after one attempt by Gladis HAYS. IV secured properly. No trauma to site. Patient tolerated procedure well.
[2019-11-05] MEDS ORDERED: TPN PER PHARMACY IV NR ×10 (20:00)
[2019-11-05] MEDS ORDERED: PPN PER PHARMACY IV NR ×10 (20:00)
--- NOTE | 2019-11-05 20:00 | NUR ---
SHIFT OPENING NOTE RECEIVED PATIENT AWAKE, ALERT AND ORIENTED X4. MALAWIAN SPEAKER. NO SOB, OR DISTRESS NOTED. 3/10 PAIN NOTED TO UPPER ABDOMEN WITH NAUSEA. WILL MEDICATE WHEN DUE. ON 2L N/C. ASSISTED TO THE BSC TO URINATE. CLEAR CAROLANN URINE NOTED. ON PPN AT 55ML/H, AND FLUIDS AT 100 ML/H. PHYSICAL ASSESSMENT COMPLETED, SEE INTERVENTIONS. INSTRUCTED ON POC AND TO CALL FOR ASSIST NEEDED. BED IS IN THE LOWEST POSITION WITH SIDE RAILS UP X2, CALL LIGHT IS WITHIN REACH.
[2019-11-05] MEDS: LABETALOL HCL 5 MG/ML ML 20ML VIAL IV PRN (20:28)
[2019-11-06] VITALS (7 sets, daily range): BP systolic 157–178; BP diastolic 61–81
--- NOTE | 2019-11-06 03:10 | NUR ---
ASSISTED TO BSC PATIENT URINATED INTO BSC. SAFELY ASSISTED BACK TO BED. ASSISTED PATIENT WITH BRUSHING TEETH. TOLERATED IT WELL.
[2019-11-06 03:35] LABS: Hematocrit 19.9 % (36.0-46.0); Mean Corpuscular Hemoglobin 27.6 pg (28.0-32.0); Mean Corpuscular Hgb Conc. 34.6 g/dL (32.0-36.0); Mean Corpuscular Volume 79.8 fL (80.0-100.0); Platelet Count (auto) 60 10^3/uL (140-450); White Blood Cell 9.5 10^3/uL (4.4-10.8)
[2019-11-06 03:40] LABS: Red Cell Distribution Width 20.9 % (11.8-14.3)
[2019-11-06 03:41] LABS: Basophils % (manual) 0 (0.0-2.0); Blast Cells 0; Eosinophils % (manual) 0 (0-7); Hemoglobin 6.9 g/dL (12.2-16.2); Reactive Lymphocytes 0
[2019-11-06 03:47] LABS: INR 1.12 (0.9-1.15); Partial Thromboplastin Time 23.6 sec (23.0-31.2)
[2019-11-06 03:51] LABS: Magnesium 2.1 mg/dL (1.6-2.6); Potassium 3.4 mmol/L (3.5-5.1)
[2019-11-06] MEDS: LABETALOL HCL 5 MG/ML ML 20ML VIAL IV PRN ×4 (03:53→22:54)
[2019-11-06] MEDS: MORPHINE SULF INJ 2 MG/ML SYRINGE 1ML IV PRN (03:58)
[2019-11-06 04:02] LABS: Albumin 2.6 g/dL (3.4-5.0); BUN/Creatinine Ratio 29.4; Bilirubin, Total 2.8 mg/dL (0.2-1.0); Calcium 7.8 mg/dL (8.5-10.1); Phosphorus 3.8 mg/dL (2.5-4.90); Total Protein 5.8 g/dL (6.4-8.2)
[2019-11-06 04:03] LABS: Band Neutrophils % (manual) 3; Lymphocytes % (manual) 17 (10.0-50.0); Metamyelocytes % 3; Monocytes % (manual) 2 (0-12); Myelocytes % 28; Promyelocytes % 8
--- NOTE | 2019-11-06 04:32 | NUR ---
SPOKE WITH HOSPITALIST MANUELA REEVES CONSTRUCTION CONSULTANT REGARDING CRITICAL HGB OF 6.9. NO ACTIVE SIGNS OF BLEEDING. ORDERED A REPEAT IN 4 HOURS.
[2019-11-06] MEDS: ACCU-CHEK COMFORT CURVE STRIP VI SCH ×4 (05:47→23:40)
[2019-11-06] MEDS: InsuLIN REG 1unit/0.01ml Soln (100units/ml) SC SCH ×4 (05:51→23:39)
--- NOTE | 2019-11-06 06:55 | NUR ---
END OF SHIFT REPORT GIVEN AND CARE ENDORSED TO FARZANEH HAYS.
[2019-11-06] MEDS: D5W/SOD CHL 0.45%/KCL 40MEQ 1,000 ML IV SCH ×2 (07:45→15:12)
--- NOTE | 2019-11-06 08:00 | NUR ---
Opening Shift Note Assumed care of patient, awake and alert. Primary Chilean speaking but able to understand Guamanian. No S/S of distress/SOB or pain. See interventions for complete assessment. Bed locked on low position, side rails up x2, bed alarms on at all times, call yu within reach, instructed on POC and to call for assist PRN, will continue to monitor for changes Q1hr and PRN.
--- NOTE | 2019-11-06 08:03 | NUR ---
Dr Villa at bedside, updated on patient's status. Patient seen and examined. Received order to give patient ice chips. Orders read back and verified. Will carry out. Will facilitate Abd and Pelvic CT.
[2019-11-06] MEDS ORDERED: POTASSIUM CHL 20MEQ/100ML 100 ML IV ONE (08:15)
[2019-11-06] MEDS ORDERED: [UNRECOGNIZED DRUG - OTHER] IV SCH ×10 (08:30)
[2019-11-06] MEDS ORDERED: POTASSIUM PHOSPHATE IV SCH ×10 (08:30)
[2019-11-06] MEDS ORDERED: POTASSIUM ACETATE IV SCH ×10 (08:30)
--- NOTE | 2019-11-06 08:45 | NUR ---
Patient out of room to CT scan.
--- NOTE | 2019-11-06 09:00 | NUR ---
Patient back to room from CT.
[2019-11-06 09:06] LABS: Hemoglobin 7.1 g/dL (12.2-16.2)
[2019-11-06 09:08] LABS: Hematocrit 20.5 % (36.0-46.0); Mean Corpuscular Hemoglobin 27.4 pg (28.0-32.0); Mean Corpuscular Hgb Conc. 34.5 g/dL (32.0-36.0); Mean Corpuscular Volume 79.4 fL (80.0-100.0); Platelet Count (auto) 65 10^3/uL (140-450); Red Blood Cells 2.59 10^6/uL (4.0-5.20); White Blood Cell 10.3 10^3/uL (4.4-10.8)
--- NOTE | 2019-11-06 09:20 | NUR ---
Dr Goodson at bedside, updated on patient's status. Patient seen and examined. Will carry out new orders.
--- NOTE | 2019-11-06 09:30 | NUR ---
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
--- NOTE | 2019-11-06 09:35 | NUR ---
Spoke to Dixie from blood bank regarding patient's Plasma pheresis exchange 1.5 x plasma volume daily. Per Dixie this RN need to call [employer] at [phone]. Spoke to Jasmina from [employer].
[2019-11-06 09:37] LABS: Red Cell Distribution Width 20.8 % (11.8-14.3)
[2019-11-06 09:58] LABS: Basophils % (manual) 0 (0.0-2.0); Blast Cells 0; Promyelocytes % 0; Reactive Lymphocytes 0
[2019-11-06 10:02] LABS: Band Neutrophils % (manual) 11; Eosinophils % (manual) 1 (0-7); Lymphocytes % (manual) 21 (10.0-50.0); Metamyelocytes % 15; Monocytes % (manual) 2 (0-12); Myelocytes % 4
--- NOTE | 2019-11-06 10:07 | NUR ---
Received call from Daphnie of [facility] ([phone]). Needed information provided. Per Daphnie consent and HD cath is needed for plasma pheresis. Will inform
[2019-11-06] MEDS: FAMOTIDINE (10MG/ML) 2ML VL IV SCH (10:27)
[2019-11-06] MEDS: MEROPENEM 1GM IVPB 100 ML IV SCH ×2 (10:27→20:57)
--- NOTE | 2019-11-06 10:35 | NUR ---
Received call from patient's daughter Allie who's able to provide password. Updated on patient's status and POC, verbalized understanding. All questions and concerns. Addressed.
--- NOTE | 2019-11-06 10:45 | NUR ---
Dr Deal at bedside. Updated on patient's status. Patient seen and examined. Will carry out new orders.
[2019-11-06] MEDS ORDERED: hydrALAZINE HCL 20 MG/ML VL IV PRN (11:00)
--- NOTE | 2019-11-06 12:19 | NUR ---
Received call from [facility] ([phone]). Needed information provided. Awaiting HD access. Paged Dr Deal because per cath lab radiology technician Sonal, Dr Guaman doesn't do temporary HD access.
--- NOTE | 2019-11-06 13:00 | NUR ---
Spoke to Dr Goodson over the phone. Received order to cancel another CBC and CMP for today. Orders received for plasma pheresis protocol.
[2019-11-06] MEDS ORDERED: CALCIUM GLUC 4.65meq/50ml D5AE 50 ML IV ONE (13:15)
--- NOTE | 2019-11-06 14:12 | NUR ---
Nutrition Followup Note Wt 75.4 kg Pt was sleeping at time of rounds with no family at bedsides. Pt is NPO d/t acute pancreatitis, pt with TPN ordered at 55 ml/hr which provides 580 kcal, 60g protein, 340 NPC. This provides 34-39% of energy needs and 75-82% of protein needs. Est Energy needs: 5153-0027 kcals (20-23 kcal/kgBW), Est Protein needs: 73-80 gms/day (1.0-1.1 gm/kgBW). Will continue to monitor and reassess prn. Labs: BUN 52 H CREAT 1.77 H AMYLASE/LIPASE 517/2818 H, GLU 173 H BM: Pt with 1 BM 11/02 per RN note Skin: Bs 19 low risk, full details in caregivers non medical note. PES: 1) Increased nutrient needs r/t pt with no PO intake aeb pt is currently NPO 2) Altered nutrition related lab values r/t current medical condition aeb elevated pancreatic enzymes, hyperglycemia, hyperbilirubinemia, elev LFTs, mod hypoalbuminemia Comments: Will continue to monitor NPO status, PN tolerance, skin status, pertinent labs and weight trends. Will f/u in 2-3 days. 1) advance PN support to meet > 75% of needs 2) Gradually advance pt to CCHO 45g oral diet when medically feasible and as tolerated 3) Continue current plan of care
--- NOTE | 2019-11-06 14:30 | NUR ---
Dr Lamb to place Hemodialysis per Dr Deal.
[2019-11-06] MEDS: methylPREDNISolone SOD SUCC 125 MG/2 ML VL IV SCH ×2 (15:12→20:54)
[2019-11-06] MEDS ORDERED: HEPARIN 1,000 UNITS/ml 1ML VIAL IV ONE (15:15)
--- NOTE | 2019-11-06 15:15 | NUR ---
PICC line placement in progress at bedside.
[2019-11-06] MEDS ORDERED: TPN PER PHARMACY 0 ML IV SCH (15:45)
--- NOTE | 2019-11-06 15:53 | NUR ---
Assessment Patient is a 79 year old female who is in [place]. Per patients daughter in law Inge prior to admission patient lived home with family and was independent. Patient has no need for DME. Per Inge patient was having severe abdominal pain so family called 911 and patient was brought here and admitted. I informed Inge I will continue to monitor and follow up as appropriate for any discharge needs. Inge verbalized understanding. Addendum: 11/06/19 at 1553 by Rosette BROWNLEE Amended: Links added.
[2019-11-06] MEDS ORDERED: SODIUM CHL 0.9% IV ONE (16:00)
[2019-11-06] MEDS ORDERED: CALCIUM GLUC IV ONE (16:00)
--- NOTE | 2019-11-06 16:12 | NUR ---
PICC line placement Patient educated on need for PICC line placement. All risks and benefits explained and all questions and concerns addressed prior to procedure. Noted past medical history and allergies with no contraindications. INR and Plt counts within acceptable range. 5 fr PICC line inserted via RIGHT BRACHIAL vein using [employer] US and Tip Location System. Sterile technique with maximum barrier precautions utilized. Blood return obtained from each of the 2 lumens and each flushed easily with NS using proper technique. PICC secured with Stat-lock; biodisc and occlusive dressing applied. Stat portable chest x-ray obtained for PICC tip placement. *Baseline Arm Circumference 32 CM. Internal length 41 cm. External length 0 cm PICC lot # [id number].
[2019-11-06] MEDS ORDERED: LIDOCAINE 1% (LOCAL ANESTH.) PF 5ml SDV ID ONE (16:15)
--- NOTE | 2019-11-06 16:15 | NUR ---
OK to use PICC line Xray completed. OK to use PICC line. PRIMARY RN FARZANEH NOTIFIED.
[2019-11-06] MEDS ORDERED: LIDOCAINE 2% (LOCAL ANESTH.) PF 5ml SDV ONE (17:00)
[2019-11-06] MEDS ORDERED: LIDOCAINE 2% (LOCAL ANESTH.) PF 5ml SDV IJ ONE (17:00)
--- NOTE | 2019-11-06 18:00 | NUR ---
RT femoral HD access placement done by Dr Lamb at bedside. Patient tolerated procedure well. VS WNL. HR 75, RR 13, BP 160/60, saturation 98% at 2 LPM oxygen via nasal cannula. Will continue to monitor patient.
--- NOTE | 2019-11-06 20:00 | NUR ---
Shift opening note: patient alert and oriented, patient is currently running TPN and IV Fluids, patient currently has a Left upper arm midline single lumen, 22 G to Left AC and double lumen picc line to the Right upper arm. patient showes no s/s of distress and denies pain at this time bed is in the lowest position with two bed rails up and bed locked in place.
[2019-11-06] MEDS: [UNRECOGNIZED DRUG - OTHER] IV SCH ×10 (20:57)
[2019-11-06] MEDS: POTASSIUM ACETATE IV SCH ×10 (20:57)
[2019-11-06] MEDS: POTASSIUM PHOSPHATE IV SCH ×10 (20:57)
[2019-11-06] MEDS: ENALAPRILAT 1.25 MG/ML-1ML VIAL IV PRN ×2 (21:02→22:43)
[2019-11-06] MEDS: SODIUM CHLOR 0.9% PF (SALINE LOCK) 10ML VIAL/SYR IV SCH (21:05)
--- NOTE | 2019-11-06 21:30 | NUR ---
patient provided with a CHG wipe bath and patient self assist oral care, complete linen change and gown change assisted patient to bedside commode patient is alert and oriented.
[2019-11-07] VITALS (11 sets, daily range): BP systolic 168–204; BP diastolic 63–81
--- NOTE | 2019-11-07 01:16 | NUR ---
patient resting quietly in bed with out s/s of distress
--- NOTE | 2019-11-07 03:00 | NUR ---
Rounding patient resting quietly in bed without s/s of distress bed in lowest position with brake applied
[2019-11-07] MEDS: D5W/SOD CHL 0.45%/KCL 40MEQ 1,000 ML IV SCH (03:45)
[2019-11-07 04:07] LABS: Platelet Count (auto) 52 10^3/uL (140-450); White Blood Cell 5.3 10^3/uL (4.4-10.8)
[2019-11-07 04:09] LABS: Hematocrit 17.1 % (36.0-46.0); Mean Corpuscular Hemoglobin 27.8 pg (28.0-32.0); Mean Corpuscular Volume 79.3 fL (80.0-100.0); Red Blood Cells 2.16 10^6/uL (4.0-5.20)
[2019-11-07] MEDS: LABETALOL HCL 5 MG/ML ML 20ML VIAL IV PRN ×4 (04:09→21:04)
[2019-11-07 04:19] LABS: Red Cell Distribution Width 20.4 % (11.8-14.3)
[2019-11-07 04:21] LABS: Basophils % (manual) 0 (0.0-2.0); Blast Cells 0; Eosinophils % (manual) 0 (0-7); Reactive Lymphocytes 0
[2019-11-07 04:24] LABS: Potassium 4.1 mmol/L (3.5-5.1)
[2019-11-07 04:32] LABS: Albumin 2.5 g/dL (3.4-5.0); BUN/Creatinine Ratio 35.2; Calcium 7.5 mg/dL (8.5-10.1); Magnesium 2.1 mg/dL (1.6-2.6); Phosphorus 4.2 mg/dL (2.5-4.90); Total Protein 5.5 g/dL (6.4-8.2)
[2019-11-07 04:37] LABS: Band Neutrophils % (manual) 7; Lymphocytes % (manual) 11 (10.0-50.0); Metamyelocytes % 9; Monocytes % (manual) 1 (0-12); Myelocytes % 22; Promyelocytes % 3
--- NOTE | 2019-11-07 05:20 | NUR ---
[facility] UPDATE Spoke with Olayinka at [employer] who stated that the HGB is to low for plasma pheresis right now. Once patient is transfused he will be able to do it and will be available around 9am. Call Olayinka at direct line [phone]
--- NOTE | 2019-11-07 05:23 | NUR ---
Spoke with Hospitalist Informed Awais Oliveira NP of the critical HGB of 6.0 new order obtained for 1 unit PRBC to be transfused
[2019-11-07] MEDS: methylPREDNISolone SOD SUCC 125 MG/2 ML VL IV SCH ×3 (06:03→20:51)
[2019-11-07] MEDS: InsuLIN REG 1unit/0.01ml Soln (100units/ml) SC SCH ×3 (06:04→17:35)
[2019-11-07] MEDS: ACCU-CHEK COMFORT CURVE STRIP VI SCH ×4 (06:05→23:47)
[2019-11-07] MEDS: ENALAPRILAT 1.25 MG/ML-1ML VIAL IV PRN (06:06)
--- NOTE | 2019-11-07 07:00 | NUR ---
REPORT RECEIVED FROM CHIEF PASSENGER SHIP STEWARD/STEWARDESS NURSE. PATIENT RESTING IN BED AT THIS TIME. RESPIRATIONS EVEN AND UNLABORED. NO SIGNS OF ACUTE DISTRESS NOTED. BED IN LOW POSITION, CALL LIGHT IN REACH. WILL CONTINUE TO MONITOR.
--- NOTE | 2019-11-07 07:11 | NUR ---
END OF SHIFT PROVIDED REPORT TO ABBI HAYS ENDORSED, REMAINDER OF BLOOD TRANSFUSION AND INFORMATION FOR PLASMA PHERESIS
--- NOTE | 2019-11-07 08:50 | NUR ---
DR CASTRO AT BEDSIDE TO ASSESS PATIENT AND DISCUSS PLAN OF CARE.
[2019-11-07] MEDS: FAMOTIDINE (10MG/ML) 2ML VL IV SCH (09:25)
--- NOTE | 2019-11-07 09:30 | NUR ---
PAGED DR GARCIA FOR PATIENTS ELEVATED BLOOD PRESSURE. AWAITING CALL BACK.
[2019-11-07] MEDS: SODIUM CHLOR 0.9% PF (SALINE LOCK) 10ML VIAL/SYR IV SCH ×2 (10:00→23:46)
--- NOTE | 2019-11-07 10:48 | NUR ---
PLASMAPHERESIS NURSE AT BEDSIDE AND TREATMENT STARTED. PATIENT TOLERATING WELL. WILL CONTINUE MONITOR.
[2019-11-07] MEDS: MEROPENEM 1GM IVPB 100 ML IV SCH ×2 (11:24→23:47)
[2019-11-07] MEDS: diphenhdrAMINE HCL 50 MG/1 ML VL IV PRN (11:37)
--- NOTE | 2019-11-07 11:37 | NUR ---
BLOOD TRANSFUSION REACTION PATIENT COMPLAINS OF A SCRATCHY THROAT, ADMINISTERED BENADRYL ORDERED. WILL CONTINUE TO MONITOR. DR NICK MADE AWARE.
[2019-11-07] MEDS ORDERED: cloNIDine 0.2 mg/24hr 7DAY PATCH TD ONE (11:45)
--- NOTE | 2019-11-07 11:54 | NUR ---
DR NICK AT BEDSIDE TO ASSESS PATIENT AND DISCUSS PLAN OF CARE. MD MADE AWARE OF PATIENTS BLOOD PRESSURE AND 1 UNIT OF PRBC GIVEN, PER MD REDRAW LABS AND REPLACE HGB WITH 1 UNIT IF LESS THAN 7. ALL ORDERS NOTED IN CHART.
[2019-11-07] MEDS: SOD CHL 0.45% 1,000 ML IV SCH (12:56)
--- NOTE | 2019-11-07 14:28 | NUR ---
DR CALLE AT BEDSIDE TO ASSESS PATIENT AND DISCUSS PLAN OF CARE. NO NEW ORDERS AT THIS TIME.
[2019-11-07 16:46] LABS: Hemoglobin 7.4 g/dL (12.2-16.2)
[2019-11-07 16:48] LABS: Hematocrit 21.3 % (36.0-46.0)
[2019-11-07] MEDS ORDERED: POTASSIUM PHOSPHATE IV NR ×10 (20:00)
[2019-11-07] MEDS ORDERED: [UNRECOGNIZED DRUG - OTHER] IV NR ×10 (20:00)
[2019-11-07] MEDS ORDERED: POTASSIUM ACETATE IV NR ×10 (20:00)
[2019-11-07] MEDS: POTASSIUM ACETATE IV SCH ×20 (20:33→21:03)
[2019-11-07] MEDS: [UNRECOGNIZED DRUG - OTHER] IV SCH ×20 (20:33→21:03)
[2019-11-07] MEDS: POTASSIUM PHOSPHATE IV SCH ×20 (20:33→21:03)
[2019-11-07] MEDS: MORPHINE SULF INJ 2 MG/ML SYRINGE 1ML IV PRN (20:50)
[2019-11-08] VITALS (8 sets, daily range): BP systolic 157–190; BP diastolic 59–73
[2019-11-08] MEDS: InsuLIN REG 1unit/0.01ml Soln (100units/ml) SC SCH ×4 (01:12→17:22)
[2019-11-08] MEDS: MORPHINE SULF INJ 2 MG/ML SYRINGE 1ML IV PRN (01:13)
[2019-11-08] MEDS: LABETALOL HCL 5 MG/ML ML 20ML VIAL IV PRN ×6 (02:15→21:11)
[2019-11-08 04:07] LABS: Hemoglobin 7.2 g/dL (12.2-16.2); Mean Corpuscular Hemoglobin 28.9 pg (28.0-32.0); Mean Corpuscular Volume 80.3 fL (80.0-100.0); Platelet Count (auto) 58 10^3/uL (140-450); Red Cell Distribution Width 18.6 % (11.8-14.3)
[2019-11-08 04:17] LABS: Basophils % (manual) 0 (0.0-2.0); Blast Cells 0; Eosinophils % (manual) 0 (0-7); Metamyelocytes % 0; Myelocytes % 0; Promyelocytes % 0; Reactive Lymphocytes 0
[2019-11-08 04:22] LABS: Albumin 2.8 g/dL (3.4-5.0); Magnesium 2.1 mg/dL (1.6-2.6); Potassium 3.1 mmol/L (3.5-5.1)
[2019-11-08 04:27] LABS: BUN/Creatinine Ratio 39.6; Bilirubin, Total 1.3 mg/dL (0.2-1.0); Phosphorus 4.7 mg/dL (2.5-4.90); Total Protein 5.4 g/dL (6.4-8.2)
[2019-11-08] MEDS: SOD CHL 0.45% 1,000 ML IV SCH ×2 (04:38→13:30)
[2019-11-08 05:11] LABS: INR 1.17 (0.9-1.15); Partial Thromboplastin Time 23.4 sec (23.0-31.2)
[2019-11-08 05:57] LABS: Band Neutrophils % (manual) 7
[2019-11-08 05:58] LABS: Lymphocytes % (manual) 19 (10.0-50.0); Monocytes % (manual) 11 (0-12)
[2019-11-08] MEDS: methylPREDNISolone SOD SUCC 125 MG/2 ML VL IV SCH ×3 (06:11→21:10)
[2019-11-08] MEDS: ACCU-CHEK COMFORT CURVE STRIP VI SCH ×3 (06:12→17:22)
--- NOTE | 2019-11-08 07:00 | NUR ---
Pt stated pain at beginning of shift but this morning after having pain medication last night denies pain. No S/S of distress. Pt remains oriented and stable. Report given, care endorsed. No other changes this shift.
--- NOTE | 2019-11-08 07:00 | NUR ---
REPORT RECEIVED FROM TRAVEL PROFESSIONAL NURSE. PATIENT ASLEEP IN BED AT THIS TIME. RESPIRATIONS EVEN AND UNLABORED. NO SIGNS OF ACUTE DISTRESS NOTED. CALL LIGHT IN REACH, BED IN LOW POSITION. WILL CONTINUE TO MONITOR.
--- NOTE | 2019-11-08 08:55 | NUR ---
MD LI SPOKE TO DR Manda CASTRO TO CLARIFY ORDERS FOR PLASMA PHERESIS. PER MD ORDER WHATEVER IS NEEDED BY PHERESIS STAFF PROTOCOL. ALL ORDERS NOTED IN CHART.
[2019-11-08] MEDS ORDERED: SODIUM CHL 0.9% IV SCH ×2 (09:15→11:15)
[2019-11-08] MEDS ORDERED: CALCIUM GLUC IV SCH ×2 (09:15→11:15)
[2019-11-08] MEDS: FAMOTIDINE (10MG/ML) 2ML VL IV SCH (09:59)
[2019-11-08] MEDS: SODIUM CHLOR 0.9% PF (SALINE LOCK) 10ML VIAL/SYR IV SCH ×2 (10:00→21:10)
--- NOTE | 2019-11-08 10:30 | NUR ---
DRESSING CHANGED TO RIGHT FEMORAL [place] CATHETER SITE USING STERILE TECHNIQUE. PATIENT TOLERATED WELL. NO REDNESS OR DRAINAGE NOTED.
[2019-11-08] MEDS: MEROPENEM 1GM IVPB 100 ML IV SCH ×2 (11:24→21:09)
[2019-11-08] MEDS: diphenhdrAMINE HCL 50 MG/1 ML VL IV PRN (11:41)
--- NOTE | 2019-11-08 11:42 | NUR ---
PLASMA PHERESIS PLASMA PHERESIS NURSE AT BEDSIDE AND PREMEDICATED PATIENT WITH BENADRYL ORDERED. ALL BLOOD PRODUCT VERIFIED PRIOR TO STARTING. PATIENT VITAL SIGNS STABLE NOTED IN CHARTING.TREATMENT STARTED A TIME PHERESIS NURSE IN PAPER CHARTING.
--- NOTE | 2019-11-08 13:40 | NUR ---
DR NICK AT BEDSIDE TO ASSESS PATIENT AND DISCUSS PLAN OF CARE. MD MADE AWARE OF PATIENTS ELEVATED BLOOD PRESSURES. NO NEW ORDERS AT THIS TIME.
--- NOTE | 2019-11-08 14:34 | NUR ---
PLASMA PHERESIS COMPLETED. PATIENT TOLERATED WELL. NO SIGNS OF ACUTE DISTRESS NOTED.
--- NOTE | 2019-11-08 14:50 | NUR ---
Nutrition Followup Note Wt 76.9 kg Pt was sleeping at time of rounds with no family at bedsides. Pt is NPO d/t acute pancreatitis, pt with TPN ordered at 67 ml/hr which provides 620 kcal, 70g protein, 340 NPC. This provides 34-39% of energy needs and 75-82% of protein needs. Est Energy needs: 3492-4930 kcals (20-23 kcal/kgBW), Est Protein needs: 73-80 gms/day (1.0-1.1 gm/kgBW). Will continue to monitor and reassess prn. Labs: BUN 557H CREAT 1.44 H, GLU 206 H BM: Pt with 1 BM today per RN note Skin: Bs 15 mod risk, full details in care team assistant note. PES: 1) Increased nutrient needs r/t pt with no PO intake aeb pt is currently NPO 2) Altered nutrition related lab values r/t current medical condition aeb elevated pancreatic enzymes, hyperglycemia, hyperbilirubinemia, elev LFTs, mod hypoalbuminemia Comments: Will continue to monitor NPO status, PN tolerance, skin status, pertinent labs and weight trends. Will f/u in 2-3 days. 1) advance PN support to meet > 75% of needs 2) Gradually advance pt to CCHO 45g oral diet when medically feasible and as tolerated 3) Continue current plan of care
--- NOTE | 2019-11-08 14:50 | NUR ---
SPOKE TO DR NICK ABOUT PATIENT HAVING SWELLING TO LEFT ARM. PER MD OBTAIN A VENOUS ULTRASOUND TO R/O DVT. ALL ORDERS NOTED IN CHART.
[2019-11-08] MEDS: POTASSIUM CHL 20MEQ/100ML 100 ML IV SCH ×2 (14:58→17:22)
--- NOTE | 2019-11-08 18:50 | NUR ---
RETARDER OPERATOR AT BEDSIDE
--- NOTE | 2019-11-08 19:18 | NUR ---
DISCONTINUED MIDLINE PATIENT TOLERATED WELL. APPLIED PRESSURE AND COBAND TO SITE. WILL CONTINUE TO MONITOR.
--- NOTE | 2019-11-08 19:40 | NUR ---
RECEIVED REPORT FROM NURSE GO REGARDING PATIENT. RESUMED CARE OF PATIENT.
[2019-11-08] MEDS ORDERED: TPN PER PHARMACY IV NR ×10 (20:00)
--- NOTE | 2019-11-08 22:05 | NUR ---
HIGH BP PATIENT BP 186/68, PATIENT IN NO APPARENT CARDIAC DISTRESS OR SOB DENIES CHEST PAIN OR ANY DISCOMFORT. ADMINISTERED LABETOLOL 10MG IV PRESCRIBED PATIENT TOLERATED.WELL.
[2019-11-09] VITALS (17 sets, daily range): BP systolic 145–213; BP diastolic 54–81
[2019-11-09] MEDS: InsuLIN REG 1unit/0.01ml Soln (100units/ml) SC SCH ×4 (00:08→19:22)
--- NOTE | 2019-11-09 00:15 | NUR ---
GLUCOSE BS 209 PATIENT IN NO APPARENT HYPERGLYCEMIA NOTED. ADMINISTERED 9 UNITS OF REGULAR INSULINS. PATIENT TOLERATED WELL IS ON TPN@83, NO ADVERSE REACTIONS NOTED.
[2019-11-09] MEDS: ACCU-CHEK COMFORT CURVE STRIP VI SCH ×4 (00:16→19:18)
[2019-11-09] MEDS: diphenhdrAMINE HCL 50 MG/1 ML VL IV PRN ×3 (02:08→17:14)
[2019-11-09] MEDS: LABETALOL HCL 5 MG/ML ML 20ML VIAL IV PRN ×2 (02:08→06:24)
--- NOTE | 2019-11-09 02:30 | NUR ---
HIGH BP PATIENT BP ELEVATED, PATIENT IN NO APPARENT CARDIAC DISTRESS OR SOB DENIES CHEST PAIN OR ANY DISCOMFORT. ADMINISTERED LABETOLOL 10MG IV PRESCRIBED PATIENT TOLERATED.WELL.
[2019-11-09 04:21] LABS: Platelet Count (auto) 62 10^3/uL (140-450); Red Cell Distribution Width 18.8 % (11.8-14.3); White Blood Cell 2.7 10^3/uL (4.4-10.8)
[2019-11-09 04:23] LABS: Hematocrit 19.2 % (36.0-46.0); Mean Corpuscular Hemoglobin 28.7 pg (28.0-32.0); Mean Corpuscular Hgb Conc. 35.9 g/dL (32.0-36.0); Red Blood Cells 2.41 10^6/uL (4.0-5.20)
--- NOTE | 2019-11-09 04:29 | NUR ---
HIGH BP PATIENT BP 186/68, PATIENT IN NO APPARENT CARDIAC DISTRESS OR SOB DENIES CHEST PAIN OR ANY DISCOMFORT. ADMINISTERED LABETOLOL 10MG IV PRESCRIBED PATIENT TOLERATED.WELL.
[2019-11-09 04:39] LABS: Magnesium 2.2 mg/dL (1.6-2.6); Potassium 3.1 mmol/L (3.5-5.1)
[2019-11-09 04:45] LABS: Hemoglobin 6.9 g/dL (12.2-16.2)
[2019-11-09 04:46] LABS: Albumin 2.8 g/dL (3.4-5.0); BUN/Creatinine Ratio 42.3; Basophils % (manual) 0 (0.0-2.0); Bilirubin, Total 1.1 mg/dL (0.2-1.0); Blast Cells 0; Calcium 7.3 mg/dL (8.5-10.1); Eosinophils % (manual) 0 (0-7); Promyelocytes % 0; Reactive Lymphocytes 0; Total Protein 5.3 g/dL (6.4-8.2)
--- NOTE | 2019-11-09 04:47 | NUR ---
CRITICAL LAB VALUE PATIENT CURRENT H/H 6.9/19.2 PLT 62. PATIENT RECENTLY RECEIVED 1 UNIT PRBC WITH H/H 08/23. GUILLERMO HOSPITALIST. Addendum: 11/09/19 at 0451 by BRETT PAULA RN RN CURRENT VITALS BP 176/71 HR 67 RR 15 O2SAT 96% O2 2LNC. Addendum: 11/09/19 at 0529 by BRETT PAULA RN RN PATIENT CURRENT K-3.1 GUILLERMO HOSPITALIST TO OBTAINS ORDERS
[2019-11-09 05:07] LABS: Band Neutrophils % (manual) 7; Lymphocytes % (manual) 26 (10.0-50.0); Metamyelocytes % 1; Monocytes % (manual) 12 (0-12); Myelocytes % 2
[2019-11-09] MEDS: methylPREDNISolone SOD SUCC 125 MG/2 ML VL IV SCH ×3 (06:11→22:23)
--- NOTE | 2019-11-09 08:00 | NUR ---
AM ASSESSMENT COMPLETED. A+O X4 WELSH SPEAKING ONLY. LE, AMBULATES TO BSC WITH MINIMAL ASSISTANCE. PT HYPERTENSIVE, ASYMPTOMATIC. DENIES DIZZINESS OR LIGHTHEADEDNESS, PT CURRENTLY DIAGNOSED WITH PANCREATITIS AND HAS DECREASED PLATELETS AND IS CURRENTLY GOING THROUGH PLASMAPHERESIS TO STABILIZE HER PLATELETS, SO SHE CAN PROCEED WITH SURGICAL INTERVENTION IN THE FUTURE. PT CURRENTLY BEEN SEEN BY PLASTICS TOOLING ENGINEER DR. CASTRO AND DR. SEWELL IS CONSULTING FOR SURGICAL INTERVENTION ONCE PLTS ARE STABLE. PICC LINE ON DUYEN BENIGN INFUSING TPN. IVF ARE BEING HELD D/T HTN. PT HAS A BSC FOR URINARY ELIMINATION WITH MINIMAL ASSISTANCE. PT'S SKIN IS INTACT. PT UTILIZING A NC AT 2 L MIN. LS CTA AND DIMINISHED ON THE BASES. EDUCATED PT ON POC. PT VERBALIZED UNDERSTANDING. PT IS REPOSITIONING HERSELF IN BED AND ASKS FOR ASSISTANCE WHEN WANTING TO USE BSC. ALL MONITOR ALARMS VERIFIED.
--- NOTE | 2019-11-09 08:27 | NUR ---
I CALLED DR. CARMONA AND NOTIFIED HIM OF PT'S LOW H+H 6.9/ 19.2 , PT'S HTN 187/66, PT IS NPO, DISCUSS PT'S CURRENT HTN MEDS, HE INCREASED FREQUENCY OF LABETALOL TO Q 2 HRS. I TOLD HIM PT ALREADY HAS PLASMAPHERESIS ORDERS FOR TODAY AND HAS A STANDING TRANSFUSION ORDER FOR ONE UNIT OF PRBC'S FOR HGB LESS THAN ONE UNIT PER DR. GROVER, HE OK THAT ORDER TOO. HE WANTS PT TO RECEIVE 20 MG OF LASIX AFTER BLOOD TRANSFUSION TO DECREASE BP. DR. ABREU FROM GI ROUNDING ON PT AT THIS TIME FROM [facility]. UPDATED HER ON PT'S CONDITION AND POC. NO NEW ORDERS RECEIVED.
[2019-11-09] MEDS ORDERED: LABETALOL HCL 5 MG/ML ML 20ML VIAL IV PRN (08:45)
[2019-11-09] MEDS ORDERED: POTASSIUM CHL 20MEQ/100ML 100 ML IV ONE (08:45)
--- NOTE | 2019-11-09 08:45 | NUR ---
CALLED LAB FOR STAT TYPE AND SCREEN FOR BLOOD TRANSFUSION.
--- NOTE | 2019-11-09 08:55 | NUR ---
BP 145/54 ON PT'S RLL, PT WAS ON HER SIDE WITH KNEE BENT WHEN BP WAS READING IN THE 180'S. B/P TAKEN PRIOR TO MEDICATING WITH LABETALOL. MED, NOT GIVEN.
[2019-11-09] MEDS: SOD CHL 0.45% 1,000 ML IV SCH (09:30)
[2019-11-09] MEDS ORDERED: CALCIUM GLUC IV SCH (09:30)
[2019-11-09] MEDS ORDERED: SODIUM CHL 0.9% IV SCH (09:30)
[2019-11-09] MEDS: SODIUM CHLOR 0.9% PF (SALINE LOCK) 10ML VIAL/SYR IV SCH ×2 (10:28→22:23)
[2019-11-09] MEDS: MEROPENEM 1GM IVPB 100 ML IV SCH ×2 (10:29→22:23)
[2019-11-09] MEDS: FAMOTIDINE (10MG/ML) 2ML VL IV SCH (10:29)
[2019-11-09] MEDS ORDERED: FUROSEMIDE 20 MG/2 ML VIAL IV ONE (12:00)
[2019-11-09] MEDS ORDERED: POTASSIUM CHL 20MEQ/100ML 100 ML IV SCH (12:00)
--- NOTE | 2019-11-09 12:14 | NUR ---
PAGED DR. STERN REGARDING PT'S HTN. PT ON LABETALOL BUT HR IS IN THE 50-60 RANGE . HOLDING BACK ON LABETALOL AND IVF. MD WILL DC IVF AND WILL ORDER LASIX, SHE'LL COME TO SEE PT. ORDERED HYDRALAZINE IV PHARMACY IS CURRENTLY OUT OF STOCK. I CALLED BACK AND SHE ORDERED ENALAPRIL IV ONE TIME DOSE.
[2019-11-09] MEDS ORDERED: ENALAPRILAT 1.25 MG/ML-1ML VIAL IV ONE (12:30)
[2019-11-09] MEDS: POTASSIUM CHL 20MEQ/100ML 100 ML IV SCH ×2 (12:30→15:00)
[2019-11-09] MEDS ORDERED: cloNIDine HCL 0.1 MG TAB PO ONE (14:00)
[2019-11-09] MEDS ORDERED: SODIUM CHL 0.9% IV ONE (15:30)
[2019-11-09] MEDS ORDERED: CALCIUM GLUC IV ONE (15:30)
--- NOTE | 2019-11-09 16:00 | NUR ---
NOTIFIED DR. STERN OF PERSISTENT HYPERTENSION BP CURRENTLY 188/81 DESPITE CLONIDINE 0.1 MG PO WITH A LITTLE BIT OF WATER. MD AWARE PT STILL HAS NOT RECEIVED LASIX AFTER PRBC'S BECAUSE PLASMAPHERESIS IS IN PROGRESS. MD WILL ORDER ADDITIONAL MEDICATION FOR HYPERTENSION.
[2019-11-09] MEDS ORDERED: NTG 0.1MG/HR TOPICAL PATCH TD ONE (16:15)
--- NOTE | 2019-11-09 16:30 | NUR ---
PT HAS ALREADY RECEIVED 2 (20 MEQ KCL RIDERS), AND ONE UNIT OF PRBC'S. I DISCUSSED WITH DR. STERN IF SHE WANTED PT TO RECEIVE MORE POTASSIUM SHE SAID NO, SHE'LL HAVE K LEVEL RE CHECKED AT 1800 AND THEY CAN HAVE THE HOSPITALIST TO RE- ORDER THE REPLACEMENT IF NEEDED.
--- NOTE | 2019-11-09 17:00 | NUR ---
ONE UNIT OF PRBC'S COMPLETED PT CURRENTLY RECEIVING PLASMAPHERESIS. REMAINS HYPERTENSIVE. SEE VITAL SIGNS. DR. STERN AWARE.
--- NOTE | 2019-11-09 18:54 | NUR ---
Void around 700ml, perineal care provided. Completed linen changed.
--- NOTE | 2019-11-09 19:00 | NUR ---
BG COVERAGE GIVEN PER SS. SEE EMAR. PT RECEIVED 8 UNITS OF REGULAR INSULIN PER BG IN THE 'S.
--- NOTE | 2019-11-09 19:30 | NUR ---
REPORT GIVEN TO ONCOMING LIS BARRY. PT REMAINS HYPERTENSIVE. SHE'LL FOLLOW UP ON K FOLLOW UP.
[2019-11-09] MEDS ORDERED: PPN PER PHARMACY IV NR ×10 (20:00)
[2019-11-09] MEDS ORDERED: hydrALAZINE HCL 20 MG/ML VL ONE (21:58)
[2019-11-10] VITALS (8 sets, daily range): BP systolic 113–188; BP diastolic 51–72
[2019-11-10] MEDS: ACCU-CHEK COMFORT CURVE STRIP VI SCH ×4 (00:03→17:44)
[2019-11-10] MEDS: hydrALAZINE HCL 20 MG/ML VL IV PRN ×2 (00:10→01:09)
[2019-11-10] MEDS: InsuLIN REG 1unit/0.01ml Soln (100units/ml) SC SCH ×4 (00:11→17:45)
[2019-11-10] MEDS: POTASSIUM CHL 20MEQ/100ML 100 ML IV SCH ×2 (01:10→04:46)
[2019-11-10] MEDS: methylPREDNISolone SOD SUCC 125 MG/2 ML VL IV SCH ×2 (06:44→13:26)
[2019-11-10 07:14] LABS: Hematocrit 24.9 % (36.0-46.0); Hemoglobin 8.6 g/dL (12.2-16.2); Mean Corpuscular Hemoglobin 28.2 pg (28.0-32.0); Mean Corpuscular Hgb Conc. 34.8 g/dL (32.0-36.0); Mean Corpuscular Volume 81.2 fL (80.0-100.0); Platelet Count (auto) 74 10^3/uL (140-450); Red Blood Cells 3.06 10^6/uL (4.0-5.20); Red Cell Distribution Width 17.8 % (11.8-14.3); White Blood Cell 2.8 10^3/uL (4.4-10.8)
--- NOTE | 2019-11-10 07:21 | NUR ---
REPORT RECEIVED FROM BRANCH MECHANIC RN
[2019-11-10 07:22] LABS: Basophils % (manual) 0 (0.0-2.0); Blast Cells 0; Eosinophils % (manual) 0 (0-7); Metamyelocytes % 0; Myelocytes % 0; Promyelocytes % 0; Reactive Lymphocytes 0
[2019-11-10 07:32] LABS: Potassium 3.4 mmol/L (3.5-5.1)
--- NOTE | 2019-11-10 07:43 | NUR ---
DR. STERN ROUNDED ON PT. AWARE OF PT'S HTN. SHE'LL ADJUST PT'S MEDS.
[2019-11-10 07:46] LABS: BUN/Creatinine Ratio 46.3; Bilirubin, Total 1.4 mg/dL (0.2-1.0); Calcium 8.1 mg/dL (8.5-10.1); Magnesium 2.2 mg/dL (1.6-2.6); Phosphorus 4.3 mg/dL (2.5-4.90); Total Protein 5.3 g/dL (6.4-8.2)
--- NOTE | 2019-11-10 07:49 | NUR ---
Daughter called last night for update. Pt denied pain all shift. K+ 3.0 when checked at 2200, paged and new order received for K+ 40meq IV. Both bags given, pt tolerated well. No S/S of distress during shift. Used BSC with min assist. BP went up sys to 213, Hydralazine given and worked for over 6 hours, however, that was the only dose in the hospital and there is a nationwide shortage as told from other nurses. Pt tolerating TPN well. Report given to AM shift, care endorsed.
[2019-11-10] MEDS: MORPHINE SULF INJ 2 MG/ML SYRINGE 1ML IV PRN (08:04)
[2019-11-10] MEDS ORDERED: SODIUM CHL 0.9% IV ONE (08:30)
[2019-11-10] MEDS ORDERED: CALCIUM GLUC IV ONE (08:30)
[2019-11-10] MEDS: FAMOTIDINE (10MG/ML) 2ML VL IV SCH (09:41)
[2019-11-10] MEDS: SODIUM CHLOR 0.9% PF (SALINE LOCK) 10ML VIAL/SYR IV SCH (09:41)
[2019-11-10] MEDS: NTG 0.1MG/HR TOPICAL PATCH TD SCH (09:42)
[2019-11-10] MEDS: MEROPENEM 1GM IVPB 100 ML IV SCH (10:15)
[2019-11-10] MEDS ORDERED: POTASSIUM CHL 20MEQ/100ML 100 ML IV ONE (10:45)
[2019-11-10] MEDS ORDERED: ENALAPRILAT 1.25 MG/ML-1ML VIAL IV ONE (10:45)
--- NOTE | 2019-11-10 10:47 | NUR ---
HTN AND K LEVEL MD MADE AWARE. ORDERS RECEIVED
--- NOTE | 2019-11-10 10:51 | NUR ---
PLASMA NURSE AT BEDSIDE
[2019-11-10 12:38] LABS: Band Neutrophils % (manual) 4; Lymphocytes % (manual) 12 (10.0-50.0); Monocytes % (manual) 5 (0-12)
[2019-11-10] MEDS: diphenhdrAMINE HCL 50 MG/1 ML VL IV PRN (13:27)
--- NOTE | 2019-11-10 14:07 | NUR ---
Nutrition Followup Note Wt 75.5 kg Pt was sleeping at time of rounds with no family at bedsides. Pt is NPO d/t acute pancreatitis, pt with TPN ordered at 72 ml/hr which provides 660 kcal, 80g protein, 340 NPC. This provides 34-39% of energy needs and 75-82% of protein needs. Est Energy needs: 2447-5883 kcals (20-23 kcal/kgBW), Est Protein needs: 73-80 gms/day (1.0-1.1 gm/kgBW). Will continue to monitor and reassess prn. Labs: CO2 34H, BUN 62H, Creat 1.34H, Alb 3.0L, Ca 8.1L, GLUC 141H BM: Pt with 1 BM / per RN note Skin: Bs 15 mod risk, full details in assisted living care manager note. PES: 1) Increased nutrient needs r/t pt with no PO intake aeb pt is currently NPO 2) Altered nutrition related lab values r/t current medical condition aeb elevated pancreatic enzymes, hyperglycemia, hyperbilirubinemia, elev LFTs, mod hypoalbuminemia Comments: Will continue to monitor NPO status, PN tolerance, skin status, pertinent labs and weight trends. Will f/u in 2-3 days. 1) advance PN support to meet > 75% of needs 2) Gradually advance pt to CCHO 45g oral diet when medically feasible and as tolerated 3) Continue current plan of care
--- NOTE | 2019-11-10 14:49 | NUR ---
PLASMA PHARESIS COMPLETE NO REACTION NOTED
--- NOTE | 2019-11-10 15:15 | NUR ---
FAMILY UPDATED ON PATIENT STATUS. ALL QUESTIONS AND CONCERNS ADDRESSED AT THIS TIME
--- NOTE | 2019-11-10 16:57 | NUR ---
PATIENT RESTING NO DISTRESS NOTED
[2019-11-10] MEDS ORDERED: PPN PER PHARMACY IV NR ×9 (20:00)
--- NOTE | 2019-11-10 20:55 | NUR ---
Pt denies pain at this time. Assisted pt to BSC, steady with minimal assist. TPN infusing. PICC line patent. Resting with eyes closed at this time. Will continue to monitor.
[2019-11-11] VITALS (11 sets, daily range): BP systolic 146–193; BP diastolic 66–81
[2019-11-11] MEDS: methylPREDNISolone SOD SUCC 125 MG/2 ML VL IV SCH ×4 (00:16→20:19)
[2019-11-11] MEDS: SODIUM CHLOR 0.9% PF (SALINE LOCK) 10ML VIAL/SYR IV SCH ×3 (00:16→20:19)
[2019-11-11] MEDS: MEROPENEM 1GM IVPB 100 ML IV SCH ×3 (00:17→22:43)
[2019-11-11 03:14] LABS: Basophils # (auto) 0 10 ^3/uL (0-0.2); Eosinophils # (auto) 0 10 ^3/uL (0-0.8); Lymphocytes # (auto) 0.4 10 ^3/uL (0.4-5.4); Mean Corpuscular Hemoglobin 28.3 pg (28.0-32.0); Neutrophils # (auto) 2.4 10 ^3/uL (1.6-8.6); Red Blood Cells 2.95 10^6/uL (4.0-5.20)
[2019-11-11 03:16] LABS: Hematocrit 24.2 % (36.0-46.0); Hemoglobin 8.4 g/dL (12.2-16.2); Lymphocytes % (auto) 12.4 % (10.0-50.0); Mean Corpuscular Hgb Conc. 34.5 g/dL (32.0-36.0); Monocytes # (auto) 0.1 10 ^3/uL (0-1.3); Monocytes % (auto) 4.5 % (0.0-12.0); Neutrophils % (auto) 83.1 % (37.0-80.0); Platelet Count (auto) 82 10^3/uL (140-450); Red Cell Distribution Width 17.8 % (11.8-14.3); White Blood Cell 2.9 10^3/uL (4.4-10.8)
[2019-11-11 03:32] LABS: Potassium 3.3 mmol/L (3.5-5.1)
[2019-11-11 03:43] LABS: Albumin 2.9 g/dL (3.4-5.0); BUN/Creatinine Ratio 51.2; Bilirubin, Total 1.4 mg/dL (0.2-1.0); Calcium 8.3 mg/dL (8.5-10.1); Magnesium 2.5 mg/dL (1.6-2.6); Phosphorus 4.2 mg/dL (2.5-4.90); Pre Albumin 26.3 mg/dL (20.0-40.0); Total Protein 5.3 g/dL (6.4-8.2)
[2019-11-11] MEDS: InsuLIN REG 1unit/0.01ml Soln (100units/ml) SC SCH ×5 (06:00→23:45)
[2019-11-11] MEDS: ACCU-CHEK COMFORT CURVE STRIP VI SCH ×5 (06:17→23:45)
--- NOTE | 2019-11-11 07:00 | NUR ---
No changes this shift. Pt rested comfortably. TPN infusing. Report given, care endorsed.
--- NOTE | 2019-11-11 08:00 | NUR ---
Dr oRdriguez at bedside, updated on patient's status. Patient seen and examined. Will carry put new orders.
--- NOTE | 2019-11-11 08:00 | NUR ---
Opening Shift Note Assumed care of patient, awake and alert. No S/S of distress/SOB or pain. Patient primary Bolivian speaking but able to understand Tongan. See intervention for complete assessment. Bed locked on low position, side rails up x2, bed alarms on at all times, call yu within reach, instructed on POC and to call for assist PRN, will continue to monitor for changes Q1hr and PRN.
[2019-11-11] MEDS ORDERED: CALCIUM GLUC 4.65meq/50ml D5AE 50 ML IV ONE (09:45)
[2019-11-11] MEDS: FAMOTIDINE (10MG/ML) 2ML VL IV SCH (09:46)
[2019-11-11] MEDS: NTG 0.1MG/HR TOPICAL PATCH TD SCH (09:47)
[2019-11-11] MEDS ORDERED: CALCIUM GLUC IV ONE (10:15)
[2019-11-11] MEDS ORDERED: SODIUM CHL 0.9% IV ONE (10:15)
--- NOTE | 2019-11-11 10:30 | NUR ---
Dr Deal at bedside, updated on patient's status. Informed of patient's BP 180's to 190's. Patient seen and examined. Will carry out new orders.
--- NOTE | 2019-11-11 10:50 | NUR ---
Thawed Plasma verified with Tanika HAYS and Rui HAYS, see Unit Transfusion Card.
--- NOTE | 2019-11-11 11:00 | NUR ---
Plasma pheresis in progress at bedside, will continue to monitor.
[2019-11-11] MEDS: diphenhdrAMINE HCL 50 MG/1 ML VL IV PRN ×2 (11:25→22:01)
[2019-11-11] MEDS: POTASSIUM CHL 20MEQ/100ML 100 ML IV SCH ×2 (12:32→14:37)
[2019-11-11] MEDS: LABETALOL HCL 5 MG/ML 4ML SYRINGE IV PRN ×3 (12:34→21:58)
--- NOTE | 2019-11-11 13:45 | NUR ---
Plasma pheresis completed. No reaction noted. Will continue to monitor patient.
--- NOTE | 2019-11-11 14:01 | NUR ---
Received call from patient's daughter Jennyfer who's able to provide password. Updated on patient's status and POC, verbalized understanding. All questions and concerns addressed.
[2019-11-11] MEDS: hydrALAZINE HCL 20 MG/ML VL IV PRN (14:13)
--- NOTE | 2019-11-11 19:05 | NUR ---
RECEIVED REPORT FROM NURSE MOY TO RESUME CARE OF PATIENT.
--- NOTE | 2019-11-11 19:45 | NUR ---
Opening Shift Note Assumed care of patient, awake and alert. No S/S of distress/SOB or pain. Patient currently on O2 2LNC. Instructed on POC and to call for assist PRN, will continue to monitor for changes Q1hr and PRN.
[2019-11-11] MEDS ORDERED: TPN PER PHARMACY IV NR ×9 (20:00)
[2019-11-12] VITALS (13 sets, daily range): BP systolic 136–184; BP diastolic 69–83
[2019-11-12 03:24] LABS: Basophils # (auto) 0 10 ^3/uL (0-0.2); Basophils % (auto) 0.1 % (0.0-2.0); Eosinophils # (auto) 0 10 ^3/uL (0-0.8); Hemoglobin 8.3 g/dL (12.2-16.2); Lymphocytes # (auto) 0.3 10 ^3/uL (0.4-5.4); Nucleated Red Blood Cells % 0.2 %; Platelet Count (auto) 91 10^3/uL (140-450); Red Cell Distribution Width 17.7 % (11.8-14.3)
[2019-11-12 03:27] LABS: Hematocrit 24.1 % (36.0-46.0); Lymphocytes % (auto) 9.6 % (10.0-50.0); Mean Corpuscular Hemoglobin 28.7 pg (28.0-32.0); Mean Corpuscular Hgb Conc. 34.5 g/dL (32.0-36.0); Mean Corpuscular Volume 83.2 fL (80.0-100.0); Monocytes # (auto) 0.2 10 ^3/uL (0-1.3); Neutrophils # (auto) 2.5 10 ^3/uL (1.6-8.6); Neutrophils % (auto) 83.3 % (37.0-80.0)
[2019-11-12 03:42] LABS: Potassium 4.1 mmol/L (3.5-5.1)
[2019-11-12 03:51] LABS: BUN/Creatinine Ratio 52.7; Bilirubin, Total 1.6 mg/dL (0.2-1.0); Calcium 8.2 mg/dL (8.5-10.1); Magnesium 2.3 mg/dL (1.6-2.6); Phosphorus 4.7 mg/dL (2.5-4.90); Total Protein 5.5 g/dL (6.4-8.2)
[2019-11-12] MEDS: LABETALOL HCL 5 MG/ML 4ML SYRINGE IV PRN ×4 (04:07→23:34)
[2019-11-12] MEDS: methylPREDNISolone SOD SUCC 125 MG/2 ML VL IV SCH ×3 (06:12→20:14)
[2019-11-12] MEDS: ACCU-CHEK COMFORT CURVE STRIP VI SCH ×4 (06:12→23:23)
[2019-11-12] MEDS: InsuLIN REG 1unit/0.01ml Soln (100units/ml) SC SCH ×4 (06:33→23:24)
--- NOTE | 2019-11-12 07:30 | NUR ---
Opening Shift Note Assumed care of patient, awake and alert. Primary Georgian speaking but able to understand Tanzanian. No S/S of distress/SOB or pain. See interventions fro complete assessment. Bed locked on low position, side rails up x2, bed alarms on at all times, call yu within reach, instructed on POC and to call for assist PRN, will continue to monitor for changes Q1hr and PRN.
[2019-11-12] MEDS ORDERED: CALCIUM GLUC 4.65meq/50ml D5AE 50 ML IV ONE (08:30)
--- NOTE | 2019-11-12 08:43 | NUR ---
Dr Rodriguez at bedside, updated on patient's status. Patient seen and examined. Will carry out new orders.
[2019-11-12] MEDS: NTG 0.1MG/HR TOPICAL PATCH TD SCH (09:24)
[2019-11-12] MEDS: FAMOTIDINE (10MG/ML) 2ML VL IV SCH (09:24)
[2019-11-12] MEDS: SODIUM CHLOR 0.9% PF (SALINE LOCK) 10ML VIAL/SYR IV SCH ×2 (09:24→20:13)
[2019-11-12] MEDS: diphenhdrAMINE HCL 50 MG/1 ML VL IV PRN (09:56)
[2019-11-12] MEDS: CALCIUM GLUC IV SCH (09:56)
[2019-11-12] MEDS: SODIUM CHL 0.9% IV SCH (09:56)
--- NOTE | 2019-11-12 10:30 | NUR ---
Dr Deal at bedside, updated on patient's status. Patient seen and examined. Will carry out new orders.
--- NOTE | 2019-11-12 11:15 | NUR ---
Plasma pheresis in progress at bedside.
--- NOTE | 2019-11-12 13:30 | NUR ---
Plasma pheresis completed, BP 202/ 84, HR 61, RR 12, saturation 99% at 2 LPM oxygen via nasal cannula, temperature 97.8 orally. Will give Labetalol PRN and continue to monitor.
[2019-11-12] MEDS: MEROPENEM 1GM IVPB 100 ML IV SCH ×2 (13:59→22:32)
--- NOTE | 2019-11-12 15:30 | NUR ---
Nutrition Followup Notes Wt 76.6 kg Pt was sleeping with RT at bedside at time of rounds. Pt is NPO d/t acute pancreatitis, pt with TPN ordered at 73 ml/hr, providing 728 kcal, 80g protein, and 408 NPCs. PN support provides 43-50% of energy needs and 100-110% of protein needs. Est Energy needs: 1110-4122 kcals (20-23 kcal/kgBW), Est Protein needs: 73-80 gms/day (1.0-1.1 gm/kgBW). Will continue to monitor and reassess prn. Labs: Gluc 158 H, Alb 3.0 L, BUN 69 H, Cr 1.31 H BM: Pt with 1 BM / per RN note Skin: Bs 18 mod risk, full details in managed care analyst note. PES: 1) Increased nutrient needs r/t pt with no PO intake aeb pt is currently NPO 2) Altered nutrition related lab values r/t current medical condition aeb elevated pancreatic enzymes, hyperglycemia, hyperbilirubinemia, elev LFTs, mod hypoalbuminemia Comments: Will continue to monitor NPO status, PN tolerance, skin status, pertinent labs and weight trends. Will f/u in 2-3 days. 1) advance PN support to meet > 75% of needs 2) Gradually advance pt to CCHO 45g oral diet when medically feasible and as tolerated 3) Continue current plan of care
--- NOTE | 2019-11-12 17:17 | NUR ---
Received call from patient's daughter Jennyfer who's able to provide password. Updated on patient's status and POC, verbalize understanding. All questions and concerns addressed.
--- NOTE | 2019-11-12 19:00 | NUR ---
RECEIVED REPORT FROM NURSE MOY TO RESUME CARE OF PATIENT.
--- NOTE | 2019-11-12 19:45 | NUR ---
Opening Shift Note Assumed care of patient, awake and alert. No S/S of distress/SOB or pain. Instructed on POC and to call for assist PRN, will continue to monitor for changes Q1hr and PRN.
[2019-11-12] MEDS ORDERED: TPN PER PHARMACY IV NR ×9 (20:00)
--- NOTE | 2019-11-12 20:10 | NUR ---
HYPERTENSION PATIENT BP 197/88 HR 65 SR ON MONITOR. PATIENT DENIES ANY PAIN OR DISCOMFORT, CONTINUES ON O2 2LNC. ADMINISTERED LABETOLOL 5MG IV @ 2005 PATIENT TOLERATED WELL. CALLED PHARMACY REGARDING HYDRALAZINE PRN, IT IS ON BACK ORDERED.
--- NOTE | 2019-11-12 23:45 | NUR ---
HYPERTENSION PATIENT BP [id number] HR 62 SR ON MONITOR. ADMINISTERED LABETOLOL 5MG IV PRESCRIBED. PATIENT TOLERATED WELL.
[2019-11-13] VITALS (20 sets, daily range): BP systolic 151–191; BP diastolic 49–83
[2019-11-13 03:05] LABS: Basophils # (auto) 0 10 ^3/uL (0-0.2); Eosinophils # (auto) 0 10 ^3/uL (0-0.8); Lymphocytes # (auto) 0.3 10 ^3/uL (0.4-5.4); Neutrophils # (auto) 2.7 10 ^3/uL (1.6-8.6)
[2019-11-13 03:07] LABS: Basophils % (auto) 0.1 % (0.0-2.0); Hematocrit 24.3 % (36.0-46.0); Hemoglobin 8.4 g/dL (12.2-16.2); Lymphocytes % (auto) 8.9 % (10.0-50.0); Mean Corpuscular Hemoglobin 28.5 pg (28.0-32.0); Mean Corpuscular Hgb Conc. 34.6 g/dL (32.0-36.0); Mean Corpuscular Volume 82.5 fL (80.0-100.0); Monocytes # (auto) 0.2 10 ^3/uL (0-1.3); Monocytes % (auto) 5.6 % (0.0-12.0); Neutrophils % (auto) 85.4 % (37.0-80.0); Nucleated Red Blood Cells % 0.3 %; Platelet Count (auto) 97 10^3/uL (140-450); Red Blood Cells 2.95 10^6/uL (4.0-5.20); Red Cell Distribution Width 17.2 % (11.8-14.3); White Blood Cell 3.2 10^3/uL (4.4-10.8)
[2019-11-13 03:27] LABS: Potassium 4.1 mmol/L (3.5-5.1)
[2019-11-13 03:33] LABS: BUN/Creatinine Ratio 55.9; Bilirubin, Total 1.6 mg/dL (0.2-1.0); Calcium 8.2 mg/dL (8.5-10.1); Magnesium 2.3 mg/dL (1.6-2.6); Phosphorus 4.4 mg/dL (2.5-4.90); Total Protein 5.2 g/dL (6.4-8.2)
[2019-11-13] MEDS: LABETALOL HCL 5 MG/ML 4ML SYRINGE IV PRN ×2 (04:20→11:07)
--- NOTE | 2019-11-13 04:30 | NUR ---
HYPERTENSION PATIENT BP ELEVATED @ 172/85 HR 64 SR ON MONITOR DENIES ANY PAIN OR ANY DISCOMFORT. ADMINISTERED LABETOLOL 5MG IV PRESCRIBED. PATIENT CONTINUES ON TPN@75 WILL CONTINUE TO MONITOR PATIENT.
[2019-11-13] MEDS: methylPREDNISolone SOD SUCC 125 MG/2 ML VL IV SCH ×3 (05:31→20:13)
[2019-11-13] MEDS: ACCU-CHEK COMFORT CURVE STRIP VI SCH ×4 (05:32→23:45)
[2019-11-13] MEDS: InsuLIN REG 1unit/0.01ml Soln (100units/ml) SC SCH ×4 (05:33→23:46)
--- NOTE | 2019-11-13 07:30 | NUR ---
ASSESS- PT. LYING IN BED AWAKE, ALERT AND ORIENTED TIMES FOUR. LIBERIAN SPEAKING, UNDERSTANDS SOME WORDS OF LAO. DENIES ANY PAIN OR DISCOMFORT. LUNGS CLEAR ALTAGRACIA. INSPIRATORY AND EXPIRATORY. O2 2L N/C. NO SOB. ABD. SOFT, ROUND, NON-TENDER. BOWEL SOUNDS ALL FOUR QUADRANTS. NO N/V. NPO EXCEPT ICE CHIPS. VOIDS VIA BSC. RADIAL PULSES STRONG, PALPABLE ALTAGRACIA. DORSALIS PEDAL PULSES STRONG, PALPABLE ALTAGRACIA. NO EDEMA. SKIN INTACT. MOVES UPPER AND LOWER EXTREMITIES WITHOUT DIFFICULTY. ABLE TO TURN SELF IN BED. PICC DUYEN DOUBLE LUMEN CATHETER INTACT. TPN AT 75 CC/HR. TIFFANIE RT. FEMORAL INTACT.
--- NOTE | 2019-11-13 09:15 | NUR ---
PT. UP TO BSC, STEADY GAIT. VOIDED 1200 CC CLEAR YELLOW URINE.
--- NOTE | 2019-11-13 09:28 | NUR ---
DR. CARINA ABREU Provider/Hospitalist at bedside. GAVE UPDATE ON PT. NEW ORDER RECEIVED.
[2019-11-13] MEDS: FAMOTIDINE (10MG/ML) 2ML VL IV SCH (09:42)
[2019-11-13] MEDS: CALCIUM GLUC IV SCH (09:42)
[2019-11-13] MEDS: SODIUM CHL 0.9% IV SCH (09:42)
[2019-11-13] MEDS: SODIUM CHLOR 0.9% PF (SALINE LOCK) 10ML VIAL/SYR IV SCH ×2 (09:48→20:13)
[2019-11-13] MEDS: NTG 0.1MG/HR TOPICAL PATCH TD SCH (09:48)
--- NOTE | 2019-11-13 10:15 | NUR ---
DR. GARCIA Provider/Hospitalist at bedside. GAVE UPDATE ON PT. INFORMED MD OF SBP 180'S-190'S.
--- NOTE | 2019-11-13 10:20 | NUR ---
RN HERE FOR PLASMAPHERESIS. PT. SIGNED BLOOD CONSENT PREVIOUSLY. 2 RN'S VERIFIED 14 UNITS OF FFP. RN USING TIFFANIE CATHETER RT. FEMORAL.
[2019-11-13] MEDS ORDERED: LABETALOL HCL 5 MG/ML ML 20ML VIAL IV ONE (11:05)
[2019-11-13] MEDS: MEROPENEM 1GM IVPB 100 ML IV SCH ×2 (11:07→23:00)
--- NOTE | 2019-11-13 11:07 | NUR ---
SBP 191. HR 60'S SR. MED. PT. WITH LABETALOL 5MG. IVP. MONITORING BP.
[2019-11-13] MEDS ORDERED: hydrALAZINE HCL 25 MG TAB PO ONE (11:30)
--- NOTE | 2019-11-13 12:07 | NUR ---
SBP 174 NOW.
--- NOTE | 2019-11-13 12:56 | NUR ---
RN COMPLETED PLASMAPHERESIS. PT. RESTING WITH EYES CLOSED. NO SIGNS OF DISTRESS.
--- NOTE | 2019-11-13 14:00 | NUR ---
SBP 160'S. PT. WAS STARTED ON HYDRALAZINE PO BY . MONITORING BP.
[2019-11-13] MEDS: hydrALAZINE HCL 25 MG TAB PO SCH ×2 (14:04→20:14)
--- NOTE | 2019-11-13 17:00 | NUR ---
PT. HAS BEEN RESTING WITH EYES CLOSED. NO SIGNS OF DISTRESS OR DISCOMFORT.
--- NOTE | 2019-11-13 18:15 | NUR ---
CHANGED PICC DSG. DUYEN ORDERED USING STERILE TECHNIQUE. NO BLEEDING FROM SITE, NO BRUISING.
[2019-11-13] MEDS ORDERED: TPN PER PHARMACY IV NR ×9 (20:00)
--- NOTE | 2019-11-13 20:53 | NUR ---
UPDATED FAMILY DAUGHTER AUDREY CALLED UPDATED HER ON PATIENT STATUS, PLAN OF CARE.
[2019-11-14] VITALS (8 sets, daily range): BP systolic 142–176; BP diastolic 51–68
[2019-11-14 02:55] LABS: Basophils # (auto) 0 10 ^3/uL (0-0.2); Basophils % (auto) 0.1 % (0.0-2.0); Eosinophils # (auto) 0 10 ^3/uL (0-0.8); Hemoglobin 7.5 g/dL (12.2-16.2); Lymphocytes # (auto) 0.2 10 ^3/uL (0.4-5.4); Monocytes # (auto) 0.1 10 ^3/uL (0-1.3); Neutrophils # (auto) 1.9 10 ^3/uL (1.6-8.6)
[2019-11-14 02:57] LABS: Hematocrit 21.4 % (36.0-46.0); Lymphocytes % (auto) 11.1 % (10.0-50.0); Mean Corpuscular Hemoglobin 28.9 pg (28.0-32.0); Mean Corpuscular Hgb Conc. 35.2 g/dL (32.0-36.0); Mean Corpuscular Volume 82.3 fL (80.0-100.0); Monocytes % (auto) 5.5 % (0.0-12.0); Neutrophils % (auto) 83.3 % (37.0-80.0); Nucleated Red Blood Cells % 0.4 %; Platelet Count (auto) 90 10^3/uL (140-450); Red Blood Cells 2.61 10^6/uL (4.0-5.20); Red Cell Distribution Width 17.5 % (11.8-14.3); White Blood Cell 2.2 10^3/uL (4.4-10.8)
[2019-11-14 03:13] LABS: Albumin 2.8 g/dL (3.4-5.0); Calcium 8.5 mg/dL (8.5-10.1); Magnesium 2.2 mg/dL (1.6-2.6); Potassium 3.6 mmol/L (3.5-5.1)
[2019-11-14 03:18] LABS: BUN/Creatinine Ratio 59.5; Bilirubin, Total 1.3 mg/dL (0.2-1.0); Phosphorus 4.1 mg/dL (2.5-4.90); Total Protein 5.2 g/dL (6.4-8.2)
[2019-11-14] MEDS: methylPREDNISolone SOD SUCC 125 MG/2 ML VL IV SCH (04:43)
[2019-11-14] MEDS: hydrALAZINE HCL 25 MG TAB PO SCH ×3 (04:44→23:03)
[2019-11-14] MEDS: ACCU-CHEK COMFORT CURVE STRIP VI SCH ×4 (06:25→23:07)
[2019-11-14] MEDS: InsuLIN REG 1unit/0.01ml Soln (100units/ml) SC SCH ×4 (06:26→23:07)
--- NOTE | 2019-11-14 07:00 | NUR ---
REPORT RECEIVED FROM RELIGION TEACHER NURSE. PATIENT RESTING IN BED AT THIS TIME. RESPIRATIONS EVEN AND UNLABORED. NO SIGNS OF ACUTE DISTRESS NOTED. CALL LIGHT IN REACH, BED IN LOW POSITION. WILL CONTINUE TO MONITOR.
--- NOTE | 2019-11-14 07:15 | NUR ---
GAVE REPORT TO NURSE GO TO RESUME CARE OF PATIENT.
--- NOTE | 2019-11-14 07:38 | NUR ---
GI ROUNDING DR CARINA ABREU ROUNDING THIS AM UPDATED PATIENT STATUS AND PROGRESS NO ABD PAIN OR NAUSEA NO OTHER ISSUES AND CONTINUES ON PLASMA PHARESIS SCHEDULED TODAY. RECEIVED ORDER FOR AM LABS AMYLASE, LIPASE, AND CMP.
--- NOTE | 2019-11-14 09:07 | NUR ---
DR Manda CASTRO AT BEDSIDE TO ASSESS PATIENT AND DISCUSS PLAN OF CARE. PER MD NO MORE PLASMA PHERESIS TREATMENTS AFTER TODAY, HOLD AT THIS TIME. PER MD WILL PERFORM BONE MARROW BIOPSY ON PATIENT THIS AFTERNOON. ALL ORDERS NOTED IN CHART. Addendum: 11/14/19 at 1730 by Belkys Ramsey RN PER DECREASE SOLUMEDROL TO 40MG BID. ALL ORDERS NOTED IN CHART.
[2019-11-14] MEDS ORDERED: SODIUM CHL 0.9% IV ONE (09:30)
[2019-11-14] MEDS ORDERED: CALCIUM GLUC IV SCH (09:30)
[2019-11-14] MEDS ORDERED: CALCIUM GLUC IV ONE (09:30)
[2019-11-14] MEDS ORDERED: methylPREDNISolone SOD SUCC 40 MG/ML VL IV SCH (09:30)
[2019-11-14] MEDS ORDERED: SODIUM CHL 0.9% IV SCH (09:30)
[2019-11-14] MEDS: FAMOTIDINE (10MG/ML) 2ML VL IV SCH (09:32)
[2019-11-14] MEDS: methylPREDNISolone SOD SUCC 40 MG/ML VL IV SCH ×2 (09:35→23:03)
[2019-11-14] MEDS: LABETALOL HCL 5 MG/ML 4ML SYRINGE IV PRN ×2 (09:36→19:25)
--- NOTE | 2019-11-14 09:41 | NUR ---
DR GARCIA AT BEDSIDE TO ASSESS PATIENT AND DISCUSS PLAN OF CARE. ALL ORDERS NOTED IN CHART.
[2019-11-14] MEDS: SODIUM CHLOR 0.9% PF (SALINE LOCK) 10ML VIAL/SYR IV SCH ×2 (10:00→19:25)
[2019-11-14] MEDS ORDERED: cloNIDine 0.2 mg/24hr 7DAY PATCH TD SCH (10:00)
--- NOTE | 2019-11-14 10:30 | NUR ---
PLASMA PHERESIS NURSE AT BEDSIDE TO START TREATMENT.
[2019-11-14] MEDS: diphenhdrAMINE HCL 50 MG/1 ML VL IV PRN (11:25)
[2019-11-14] MEDS: NTG 0.1MG/HR TOPICAL PATCH TD SCH (11:39)
[2019-11-14] MEDS: MEROPENEM 1GM IVPB 100 ML IV SCH ×2 (12:10→23:01)
--- NOTE | 2019-11-14 12:45 | NUR ---
Nutrition Followup Notes Wt 75.0 kg Pt was sleeping with RT at bedside at time of rounds. Pt is NPO d/t acute pancreatitis, pt with TPN ordered at 74 ml/hr, providing 796 kcal, 80g protein, and 408 NPCs. PN support provides 43-50% of energy needs and 100-110% of protein needs. Est Energy needs: 0672-2910 kcals (20-23 kcal/kgBW), Est Protein needs: 73-80 gms/day (1.0-1.1 gm/kgBW). Will continue to monitor and reassess prn. Labs: Gluc 139 H, Alb 3.2.8, BUN 72 H, Cr 1.21 H BM: Pt with 1 BM 9/3 per RN note Skin: Bs 21 low risk, full details in family day carer note. PES: 1) Increased nutrient needs r/t pt with no PO intake aeb pt is currently NPO 2) Altered nutrition related lab values r/t current medical condition aeb elevated pancreatic enzymes, hyperglycemia, hyperbilirubinemia, elev LFTs, mod hypoalbuminemia Comments: Will continue to monitor NPO status, PN tolerance, skin status, pertinent labs and weight trends. Will f/u in 2-3 days. 1) advance PN support to meet > 75% of needs 2) Gradually advance pt to CCHO 45g oral diet when medically feasible and as tolerated 3) Continue current plan of care
--- NOTE | 2019-11-14 12:49 | NUR ---
DR Manda CASTRO AT BEDSIDE TO PERFORM BONE MARROW BIOPSY. PATIENT SIGNED CONSENTS PRIOR TO PROCEDURE AND EXPLAINED ALL RISKS AND BENEFITS OF PROCEDURE BY SKYE CALVO RN MALTESE SPEAKING. ALL QUESTIONS AND CONCERNS WERE ADDRESSED AT THIS TIME. PATIENT TOLERATED PROCEDURE WELL. APPLIED STERILE GAUZE AND TEGADERM TO SITE. SAMPLES TAKEN TO LAB.
--- NOTE | 2019-11-14 15:00 | NUR ---
PLASMA PHERESIS NURSE COMPLETED TREATMENT. NO SIGNS OF ACUTE DISTRESS NOTED. PATIENT TOLERATED WELL, RESTING IN BED.
--- NOTE | 2019-11-14 19:00 | NUR ---
RECEIVED REPORT FROM NURSE GO TO RESUME CARE OF PATIENT.
[2019-11-14] MEDS ORDERED: TPN PER PHARMACY IV NR ×9 (20:00)
--- NOTE | 2019-11-14 20:04 | NUR ---
UPDATED FAMILY DAUGHTER KAYCE CALLED AND UPDATED HER ON PATIENT STATUS, PROGRESS, PLAN OF CARE, DOCTORS ROUNDINGS, AND PLASMA PHERESIS TREATMENT TODAY.
--- NOTE | 2019-11-15 | NUR ---
BS-88 THIS EVENING NO COVERAGE NEEDED AND CONTINUES ON TPN @ 89ML/HR
[2019-11-15 00:01] VITALS: BP 180/55
[2019-11-15 04:02] LABS: Basophils # (auto) 0 10 ^3/uL (0-0.2); Basophils % (auto) 0.1 % (0.0-2.0); Eosinophils # (auto) 0 10 ^3/uL (0-0.8); Hematocrit 22.4 % (36.0-46.0); Lymphocytes # (auto) 0.3 10 ^3/uL (0.4-5.4); Monocytes # (auto) 0.2 10 ^3/uL (0-1.3); White Blood Cell 2.3 10^3/uL (4.4-10.8)
[2019-11-15 04:05] LABS: Hemoglobin 7.7 g/dL (12.2-16.2); Lymphocytes % (auto) 11.3 % (10.0-50.0); Mean Corpuscular Hemoglobin 28.6 pg (28.0-32.0); Mean Corpuscular Hgb Conc. 34.4 g/dL (32.0-36.0); Mean Corpuscular Volume 83.1 fL (80.0-100.0); Monocytes % (auto) 8.3 % (0.0-12.0); Neutrophils # (auto) 1.9 10 ^3/uL (1.6-8.6); Neutrophils % (auto) 80.3 % (37.0-80.0); Nucleated Red Blood Cells % 0.1 %; Platelet Count (auto) 105 10^3/uL (140-450); Red Cell Distribution Width 17.2 % (11.8-14.3)
[2019-11-15 04:16] LABS: Magnesium 2.3 mg/dL (1.6-2.6); Potassium 3.6 mmol/L (3.5-5.1)
[2019-11-15 04:24] LABS: Albumin 2.8 g/dL (3.4-5.0); BUN/Creatinine Ratio 62.7; Bilirubin, Total 1.4 mg/dL (0.2-1.0); Calcium 8.3 mg/dL (8.5-10.1); Phosphorus 3.6 mg/dL (2.5-4.90); Total Protein 5.1 g/dL (6.4-8.2)
[2019-11-15] MEDS: InsuLIN REG 1unit/0.01ml Soln (100units/ml) SC SCH ×4 (05:46→22:53)
[2019-11-15] MEDS: ACCU-CHEK COMFORT CURVE STRIP VI SCH ×4 (05:47→22:53)
[2019-11-15] MEDS: hydrALAZINE HCL 25 MG TAB PO SCH ×3 (05:49→21:36)
--- NOTE | 2019-11-15 06:00 | NUR ---
BS-98 THIS AM NO COVERAGE NEEDED.
[2019-11-15 08:45] VITALS: BP 137/47
--- NOTE | 2019-11-15 08:45 | NUR ---
Opening Shift Note Assumed care of patient, awake and alert. Patient primary Scottish speaking but able to understand Bruneian. No S/S of distress/SOB or pain. See interventions for complete assessment. Bed locked on low position, side rails up x2, bed alarms on at all times, call yu within reach, instructed on POC and to call for assist PRN, will continue to monitor for changes Q1hr and PRN.
--- NOTE | 2019-11-15 09:36 | NUR ---
Dr Rodriguez at bedside, updated on patient's status. Patient seen and examined. Received order to start patient on clear liquid diet. Orders read back and verified. Will carry out.
--- NOTE | 2019-11-15 09:57 | NUR ---
Dr Gu at bedside. Updated on patient's status. Patient seen and examined. Will carry out new orders.
--- NOTE | 2019-11-15 10:03 | NUR ---
Dr Deal at bedside, updated on patient's status. Patient seen and examined. Plan to transfer patient to Tele floor. Will carry out new orders.
--- NOTE | 2019-11-15 10:18 | NUR ---
Dr Oneill at bedside. Updated on patient's status. Patient seen and examined. Will carry out new orders. Addendum: 11/15/19 at 1025 by Alejandra Stoddard RN Wrong patient
[2019-11-15] MEDS: MEROPENEM 1GM IVPB 100 ML IV SCH ×2 (10:20→22:52)
[2019-11-15] MEDS: methylPREDNISolone SOD SUCC 40 MG/ML VL IV SCH ×2 (10:20→21:36)
[2019-11-15] MEDS: SODIUM CHLOR 0.9% PF (SALINE LOCK) 10ML VIAL/SYR IV SCH ×2 (10:20→21:37)
[2019-11-15] MEDS: FAMOTIDINE (10MG/ML) 2ML VL IV SCH (10:20)
[2019-11-15] MEDS: NTG 0.1MG/HR TOPICAL PATCH TD SCH (10:21)
[2019-11-15] MEDS ORDERED: OMNIPAQUE ORAL SOLN 500ml 12mg/ml PO ONE (10:48)
[2019-11-15 11:30] VITALS: BP 153/51
[2019-11-15] MEDS ORDERED: IOHEXOL 300 MG/ML 100ML BOTTLE IJ ONE (12:15)
--- NOTE | 2019-11-15 14:30 | NUR ---
Patient consumed one bottle of oral contrast, refused to drink more contrast at this time.
--- NOTE | 2019-11-15 14:36 | NUR ---
[place] pt transferred to [facility] transferred to tele floor via hospital bed on media monitor. All patient medications and personal belongings including clothes, a pair of sandal, cesar tablet, pair of yellow metal earring and bracelet transferred with patient to receiving floor. Patient care transferred to Shaista HAYS.
--- NOTE | 2019-11-15 16:03 | NUR ---
BP = 130/74, Heart rate = 89, RR = 18, O2 Sat = 94% on room air. Patient came from Radiology via bed. No acute distress noted.
[2019-11-15 17:00] VITALS: BP 150/60
--- NOTE | 2019-11-15 19:30 | NUR ---
Opening Shift Note Assumed care of patient, awake and alert. No S/S of distress/SOB or pain. Insructed on POC and to callfor assist PRN, will continue to monitor for changes Q1hr and PRN. Fall and safety precautions in place. Call light within reach.
[2019-11-15] MEDS ORDERED: TPN PER PHARMACY IV NR ×11 (20:00)
[2019-11-15 21:46] VITALS: BP 131/57
[2019-11-16] VITALS (10 sets, daily range): BP systolic 133–157; BP diastolic 56–76
[2019-11-16] MEDS: ACCU-CHEK COMFORT CURVE STRIP VI SCH ×4 (05:40→23:11)
[2019-11-16] MEDS: hydrALAZINE HCL 25 MG TAB PO SCH ×3 (05:40→21:33)
[2019-11-16] MEDS: InsuLIN REG 1unit/0.01ml Soln (100units/ml) SC SCH ×4 (05:41→23:19)
[2019-11-16 07:01] LABS: Hemoglobin 7.8 g/dL (12.2-16.2)
[2019-11-16 07:04] LABS: Hematocrit 22.1 % (36.0-46.0); Mean Corpuscular Hemoglobin 29.1 pg (28.0-32.0); Mean Corpuscular Hgb Conc. 35.2 g/dL (32.0-36.0); Mean Corpuscular Volume 82.6 fL (80.0-100.0); Platelet Count (auto) 119 10^3/uL (140-450); Red Blood Cells 2.68 10^6/uL (4.0-5.20); Red Cell Distribution Width 17.5 % (11.8-14.3)
[2019-11-16 07:13] LABS: Albumin 2.9 g/dL (3.4-5.0); BUN/Creatinine Ratio 60.8; Bilirubin, Total 2.1 mg/dL (0.2-1.0); Calcium 7.9 mg/dL (8.5-10.1); Magnesium 2.4 mg/dL (1.6-2.6); Phosphorus 3.3 mg/dL (2.5-4.90); Total Protein 5.2 g/dL (6.4-8.2)
--- NOTE | 2019-11-16 07:30 | NUR ---
RECEIVED REPORT FROM NIGHT NURSE. PATIENT RESTING IN BED, NO DISTRESS NOTED. WILL CONTINUE TO MONITOR.
[2019-11-16 07:34] LABS: White Blood Cell 1.9 10^3/uL (4.4-10.8)
[2019-11-16 09:35] LABS: INR 1.1 (0.9-1.15); Partial Thromboplastin Time 22.8 sec (23.0-31.2)
[2019-11-16] MEDS: FAMOTIDINE (10MG/ML) 2ML VL IV SCH (10:25)
[2019-11-16] MEDS: methylPREDNISolone SOD SUCC 40 MG/ML VL IV SCH ×2 (10:25→21:33)
[2019-11-16] MEDS: NTG 0.1MG/HR TOPICAL PATCH TD SCH (10:27)
[2019-11-16 10:37] LABS: Basophils % (manual) 0 (0.0-2.0); Blast Cells 0; Eosinophils % (manual) 0 (0-7); Promyelocytes % 0; Reactive Lymphocytes 0
[2019-11-16] MEDS: SODIUM CHLOR 0.9% PF (SALINE LOCK) 10ML VIAL/SYR IV SCH ×2 (11:31→21:33)
[2019-11-16] MEDS: MEROPENEM 1GM IVPB 100 ML IV SCH ×2 (11:32→23:11)
--- NOTE | 2019-11-16 12:40 | NUR ---
Nutrition Followup Notes Wt 75.0 kg Pt was sleeping with no family at bedside at time of rounds. Pt with CLD d/t acute pancreatitis, pt with TPN ordered at 98 ml/hr, providing 952 kcal, 80g protein, and 632 NPCs. PN support provides 57-65% of energy needs and 100-110% of protein needs. Est Energy needs: 3768-2074 kcals (20-23 kcal/kgBW), Est Protein needs: 73-80 gms/day (1.0-1.1 gm/kgBW). Will continue to monitor and reassess prn. Labs: BUN 76H, Creat 1.25H, Ca 7.9L, Alb 2.9L, GLUC 138H BM: Pt with 1 BM / per RN note Skin: Bs 18 mod risk, full details in healthcare account manager note. PES: 1) Increased nutrient needs r/t pt with no PO intake aeb pt is currently NPO 2) Altered nutrition related lab values r/t current medical condition aeb elevated pancreatic enzymes, hyperglycemia, hyperbilirubinemia, elev LFTs, mod hypoalbuminemia Comments: Will continue to monitor NPO status, PN tolerance, skin status, pertinent labs and weight trends. Will f/u in 2-3 days. 1) advance PN support to meet > 75% of needs 2) Gradually advance pt to CCHO 45g oral diet when medically feasible and as tolerated 3) Continue current plan of care
[2019-11-16 12:53] LABS: Band Neutrophils % (manual) 1; Lymphocytes % (manual) 19 (10.0-50.0); Metamyelocytes % 1; Monocytes % (manual) 4 (0-12); Myelocytes % 1
--- NOTE | 2019-11-16 13:30 | NUR ---
SPOKE WITH BLOOD BANK ON STATUS OF BLOOD PRODUCTS. INFORMED THAT THE ORDER WAS NOT BEING TRANSMITTED TO THEIR SYSTEM. WILL RESUBMIT ORDER.
--- NOTE | 2019-11-16 16:41 | NUR ---
BLOOD TRANSFUSION STARTED. PLEASE SEE TRANSFUSION SPREADSHEET.
--- NOTE | 2019-11-16 19:50 | NUR ---
Opening Shift Note Assumed care of patient, awake and alert. No S/S of distress/SOB or pain noted. Bed locked on low position, side rails up x2, bed alarms on at all times, call yu within reach, instructed on POC and to call for assist PRN. Bed is in lowest locked position with bed rails up x2 and call light is within reach of the patient.
[2019-11-16] MEDS ORDERED: TPN PER PHARMACY IV NR ×11 (20:00)
[2019-11-16] MEDS ORDERED: TPN*HIGH CONC* PER PHARMACY IV NR ×11 (20:00)
--- NOTE | 2019-11-16 20:35 | NUR ---
BLOOD TRANSFUSION: SECOND UNIT OF BLOOD TRANSFUSION STARTED. PLEASE SEE TRANSFUSION SPREADSHEET.
--- NOTE | 2019-11-16 23:20 | NUR ---
BLOOD TRANSFUSION COMPLETE: BLOOD TRANSFUSION COMPLETE. PLEASE SEE TRANSFUSION SPREADSHEET. PATIENT TOLERATED WELL, RESTING IN BED WITH BREATHS EVEN AND UNLABORED.
[2019-11-17 05:16] VITALS: BP 147/69
[2019-11-17 05:22] LABS: Basophils # (auto) 0 10 ^3/uL (0-0.2); Basophils % (auto) 0.9 % (0.0-2.0); Eosinophils # (auto) 0 10 ^3/uL (0-0.8); Eosinophils % (auto) 0.2 % (0.0-7.0); Hematocrit 29.6 % (36.0-46.0); Hemoglobin 10.4 g/dL (12.2-16.2); Lymphocytes # (auto) 0.2 10 ^3/uL (0.4-5.4); Lymphocytes % (auto) 12.7 % (10.0-50.0); Mean Corpuscular Hemoglobin 29.4 pg (28.0-32.0); Mean Corpuscular Hgb Conc. 35.3 g/dL (32.0-36.0); Mean Corpuscular Volume 83.3 fL (80.0-100.0); Monocytes # (auto) 0.1 10 ^3/uL (0-1.3); Monocytes % (auto) 5.1 % (0.0-12.0); Neutrophils # (auto) 1.6 10 ^3/uL (1.6-8.6); Neutrophils % (auto) 81.1 % (37.0-80.0); Nucleated Red Blood Cells % 0.5 %; Platelet Count (auto) 114 10^3/uL (140-450); Red Blood Cells 3.56 10^6/uL (4.0-5.20); Red Cell Distribution Width 16.6 % (11.8-14.3)
[2019-11-17 05:25] LABS: White Blood Cell 1.9 10^3/uL (4.4-10.8)
--- NOTE | 2019-11-17 05:27 | NUR ---
Critical lab, Hospitalist paged: Received critical lab result of 1.9 WBC. Paged hospitalist at this time to notify of critical lab result. Waiting for call back.
[2019-11-17] MEDS: hydrALAZINE HCL 25 MG TAB PO SCH ×3 (05:34→22:05)
[2019-11-17] MEDS: ACCU-CHEK COMFORT CURVE STRIP VI SCH ×3 (05:37→18:15)
[2019-11-17 05:38] LABS: Calcium 7.9 mg/dL (8.5-10.1); Magnesium 2.4 mg/dL (1.6-2.6); Potassium 4.4 mmol/L (3.5-5.1)
[2019-11-17 05:42] LABS: BUN/Creatinine Ratio 56.9; Bilirubin, Total 2.7 mg/dL (0.2-1.0); Phosphorus 3.5 mg/dL (2.5-4.90); Pre Albumin 28.5 mg/dL (20.0-40.0); Total Protein 5.3 g/dL (6.4-8.2)
[2019-11-17] MEDS: InsuLIN REG 1unit/0.01ml Soln (100units/ml) SC SCH ×3 (05:50→18:16)
--- NOTE | 2019-11-17 06:03 | NUR ---
Hospitalist called back: Hospitalist Mishel called back. Made hospitalist aware of patients critical white blood cell count and previous white blood cell count which was also 1.9. No new orders received.
--- NOTE | 2019-11-17 07:30 | NUR ---
Opening Shift Note Received report on the patient. Sleeping in bed. Patient shows no signs of distress at this time. Discussed the plan of care witht he patient. Bed in lowest position, side rails up x2, and the call light is within reach.
[2019-11-17 08:43] VITALS: BP_SYST 140; BP_SYST 76; BP_DIAS 76
[2019-11-17] MEDS: methylPREDNISolone SOD SUCC 40 MG/ML VL IV SCH ×2 (11:33→22:05)
[2019-11-17] MEDS: PANTOPRAZOLE 40 MG/10 ML VIAL INJ IV SCH (11:35)
[2019-11-17] MEDS: NTG 0.1MG/HR TOPICAL PATCH TD SCH (11:37)
[2019-11-17] MEDS: MEROPENEM 1GM IVPB 100 ML IV SCH ×2 (11:38→22:35)
[2019-11-17] MEDS: SODIUM CHLOR 0.9% PF (SALINE LOCK) 10ML VIAL/SYR IV SCH ×2 (11:41→21:39)
[2019-11-17 12:37] VITALS: BP 161/72
--- NOTE | 2019-11-17 16:21 | NUR ---
DR ZARATE AT BEDSIDE. NEW ORDERS RECEIVED. PATIENT'S BIOPSY SHOWS SHE HAS LEUKEMIA. SURGERY HAS TO BE CANCELLED. PATIENT NOTIFIED BY DR ZARATE.
[2019-11-17 16:30] VITALS: BP 159/70
--- NOTE | 2019-11-17 16:42 | NUR ---
SPOKE TO DR CASTRO. NEW ORDERS RECEIVED.
--- NOTE | 2019-11-17 16:54 | NUR ---
SPOKE TO PHARMACIST ABOUT ORDERING THE ATRA AND THE ARSENIC TRIOXIDE. WAS TOLD NOT TO PUT ORDER IN BECAUSE THEY ARE UNSURE IF THEY CAN ORDER THIS MEDICATION. PHARMACIST STATED THAT SHE WILL FOLLOW UP WITH THE NURSE MONDAY MORNING AND LET THEM KNOW IF THEY CAN GET THE MEDICATION.
[2019-11-17] MEDS: LORazepam 2MG/ML-1ML VIAL IV PRN (18:15)
--- NOTE | 2019-11-17 18:16 | NUR ---
PATIENTS RIGHT GROIN CATHETER WAS BLEEDING SLIGHTLY. PRESSURE APPLIED FOR 15 MINS. DRESSING CHANGED. SANDBAG APPLIED. PATIENT INSTRUCTED NOT TO GET UP AND TO CALL FOR ASSISTANCE.
--- NOTE | 2019-11-17 19:00 | NUR ---
PATIENT RIGHT GROIN CATHETER IS STILL BLEEDING. HOSPITALIST LOU CALLED. NO UPGRADE. ORDERS FOR CBC AND COAG'S IN 6 HRS.
[2019-11-17 19:26] LABS: Basophils # (auto) 0 10 ^3/uL (0-0.2); Basophils % (auto) 0.3 % (0.0-2.0); Eosinophils # (auto) 0 10 ^3/uL (0-0.8); Hematocrit 30.7 % (36.0-46.0); Hemoglobin 10.5 g/dL (12.2-16.2); Lymphocytes # (auto) 0.2 10 ^3/uL (0.4-5.4); Lymphocytes % (auto) 10.3 % (10.0-50.0); Mean Corpuscular Hemoglobin 28.5 pg (28.0-32.0); Mean Corpuscular Volume 83.6 fL (80.0-100.0); Monocytes # (auto) 0.1 10 ^3/uL (0-1.3); Monocytes % (auto) 5.2 % (0.0-12.0); Neutrophils # (auto) 1.9 10 ^3/uL (1.6-8.6); Neutrophils % (auto) 84.2 % (37.0-80.0); Nucleated Red Blood Cells % 0.2 %; Platelet Count (auto) 120 10^3/uL (140-450); Red Blood Cells 3.67 10^6/uL (4.0-5.20); Red Cell Distribution Width 16.5 % (11.8-14.3); White Blood Cell 2.2 10^3/uL (4.4-10.8)
[2019-11-17] MEDS: LABETALOL HCL 5 MG/ML 4ML SYRINGE IV PRN (19:27)
[2019-11-17 19:41] LABS: INR 1.09 (0.9-1.15)
--- NOTE | 2019-11-17 19:45 | NUR ---
Opening Shift Note Assumed care of patient, awake and alert. No S/S of distress/SOB or pain noted. Bed locked on low position, side rails up x2, bed alarms on at all times, call yu within reach, instructed on POC and to call for assist PRN. Right groin dressing of Santiago catheter assessed. Some bleeding noted on the dressing sightly above circled margin. Pressure applied. Will reassess.
[2019-11-17] MEDS ORDERED: TPN PER PHARMACY IV NR ×12 (20:00)
--- NOTE | 2019-11-17 20:05 | NUR ---
Steffi ORTIZ at the bedside: Notified of bleeding to right groin. Patients labs and chart reviewed. Continue to monitor and obtain UA and urine bacterial culture.
[2019-11-17 22:00] VITALS: BP 158/75
--- NOTE | 2019-11-18 | NUR ---
Dressing changed: Dressing changed to right groin catheter site. No bleeding noted, patient tolerated well. Continue care.
[2019-11-18] MEDS: ACCU-CHEK COMFORT CURVE STRIP VI SCH ×4 (00:08→17:16)
[2019-11-18 01:39] LABS: Basophils # (auto) 0 10 ^3/uL (0-0.2); Basophils % (auto) 0.2 % (0.0-2.0); Eosinophils # (auto) 0 10 ^3/uL (0-0.8); Eosinophils % (auto) 0.1 % (0.0-7.0); Hemoglobin 9.6 g/dL (12.2-16.2); Lymphocytes # (auto) 0.2 10 ^3/uL (0.4-5.4); Lymphocytes % (auto) 10.8 % (10.0-50.0); Mean Corpuscular Hgb Conc. 34.5 g/dL (32.0-36.0); Monocytes # (auto) 0.1 10 ^3/uL (0-1.3); Neutrophils % (auto) 84.9 % (37.0-80.0); Platelet Count (auto) 109 10^3/uL (140-450); Red Blood Cells 3.33 10^6/uL (4.0-5.20); Red Cell Distribution Width 16.7 % (11.8-14.3); White Blood Cell 2.3 10^3/uL (4.4-10.8)
[2019-11-18 01:42] LABS: Urine Bacteria FEW /hpf (None Seen); Urine Blood 3+ /uL (Negative); Urine Specific Gravity 1.011 (1.001-1.035); Urine WBC 4 /hpf (0 - 5)
[2019-11-18 01:57] LABS: INR 1.1 (0.9-1.15); Partial Thromboplastin Time 24.7 sec (23.0-31.2)
[2019-11-18 05:00] VITALS: BP 134/67
[2019-11-18] MEDS: hydrALAZINE HCL 25 MG TAB PO SCH ×3 (05:30→22:19)
[2019-11-18] MEDS: InsuLIN REG 1unit/0.01ml Soln (100units/ml) SC SCH ×4 (05:38→17:52)
[2019-11-18 05:55] LABS: Basophils # (auto) 0 10 ^3/uL (0-0.2); Basophils % (auto) 0.2 % (0.0-2.0); Eosinophils # (auto) 0 10 ^3/uL (0-0.8); Hematocrit 27.1 % (36.0-46.0); Hemoglobin 9.4 g/dL (12.2-16.2); Lymphocytes # (auto) 0.3 10 ^3/uL (0.4-5.4); Lymphocytes % (auto) 12.6 % (10.0-50.0); Mean Corpuscular Hemoglobin 28.9 pg (28.0-32.0); Mean Corpuscular Hgb Conc. 34.6 g/dL (32.0-36.0); Mean Corpuscular Volume 83.7 fL (80.0-100.0); Monocytes # (auto) 0.1 10 ^3/uL (0-1.3); Monocytes % (auto) 4.2 % (0.0-12.0); Neutrophils # (auto) 1.7 10 ^3/uL (1.6-8.6); Nucleated Red Blood Cells % 0.1 %; Platelet Count (auto) 104 10^3/uL (140-450); Red Blood Cells 3.23 10^6/uL (4.0-5.20); Red Cell Distribution Width 16.8 % (11.8-14.3)
[2019-11-18 06:06] LABS: Potassium 4.5 mmol/L (3.5-5.1)
[2019-11-18 06:17] LABS: Albumin 2.6 g/dL (3.4-5.0); Bilirubin, Total 2.1 mg/dL (0.2-1.0); Calcium 7.4 mg/dL (8.5-10.1); Magnesium 2.2 mg/dL (1.6-2.6); Phosphorus 3.8 mg/dL (2.5-4.90); Total Protein 4.8 g/dL (6.4-8.2)
--- NOTE | 2019-11-18 06:50 | NUR ---
Closing note: Patient resting in bed with breaths even and unlabored. No s/s of distress sob or pain noted. Dressing to right groin is clean dry and intact. Will endorse care to day shift nurse.
[2019-11-18 08:48] VITALS: BP 158/75
[2019-11-18] MEDS: PANTOPRAZOLE 40 MG/10 ML VIAL INJ IV SCH (09:56)
[2019-11-18] MEDS: SODIUM CHLOR 0.9% PF (SALINE LOCK) 10ML VIAL/SYR IV SCH ×2 (09:56→22:19)
[2019-11-18] MEDS: methylPREDNISolone SOD SUCC 40 MG/ML VL IV SCH (09:56)
[2019-11-18] MEDS: NTG 0.1MG/HR TOPICAL PATCH TD SCH (09:57)
[2019-11-18] MEDS: MEROPENEM 1GM IVPB 100 ML IV SCH ×2 (11:18→22:41)
[2019-11-18 12:33] VITALS: BP 149/70
--- NOTE | 2019-11-18 14:55 | NUR ---
Nutrition Followup Notes Wt 75.0 kg Pt was sleeping with no family at bedside at time of rounds. Pt with CLD d/t acute pancreatitis, with no PO intake reported per RN doc. Pt with TPN at 98 ml/hr, providing 1100 kcal, 80g protein, and 780 NPCs. PN support provides 65-75% of energy needs and 100-110% of protein needs. Est Energy needs: 2733-0779 kcals (20-23 kcal/kgBW), Est Protein needs: 73-80 gms/day (1.0-1.1 gm/kgBW). Will continue to monitor and reassess prn. Labs: BUN 61H, Ca 7.4L, Alb 2.6L, GLUC 124H BM: Pt with 1 BM 9/3 per RN note Skin: Bs 17 mod risk, full details in home care associate note. PES: 1) Increased nutrient needs r/t pt with no PO intake aeb pt is currently NPO 2) Altered nutrition related lab values r/t current medical condition aeb elevated pancreatic enzymes, hyperglycemia, hyperbilirubinemia, elev LFTs, mod hypoalbuminemia Comments: Will continue to monitor NPO status, PN tolerance, skin status, pertinent labs and weight trends. Will f/u in 2-3 days. 1) advance PN support to meet > 75% of needs 2) Gradually advance pt to CCHO 45g oral diet when medically feasible and as tolerated 3) Continue current plan of care
[2019-11-18 17:13] VITALS: BP 153/71
--- NOTE | 2019-11-18 19:30 | NUR ---
Opening Shift Note Assumed patient care from [facility]. No S/S of distress/SOB or pain noted. Patient is AOx4 and laying in bed resting with eyes closed. HOB is at 45 degrees, bed locked in lowest position, call light within reach. Will continue to monitor.
[2019-11-18] MEDS ORDERED: TPN PER PHARMACY IV NR ×12 (20:00)
[2019-11-18 22:00] VITALS: BP 159/67
[2019-11-18] MEDS: predniSONE 5 MG TAB PO SCH (22:19)
[2019-11-19] MEDS: ACCU-CHEK COMFORT CURVE STRIP VI SCH ×5 (00:29→23:32)
--- NOTE | 2019-11-19 00:58 | NUR ---
Right Groin Nael Cath Dressing Changed; Dressing Saturated Patient tolerated well. No active bleeding at this time. Will Continue to monitor. Addendum: 11/19/19 at 0100 by NOE REID RN RN Gauze and Tegaderm applied to site
[2019-11-19 05:00] VITALS: BP 152/66
[2019-11-19] MEDS: hydrALAZINE HCL 25 MG TAB PO SCH ×3 (05:40→21:55)
[2019-11-19] MEDS: InsuLIN REG 1unit/0.01ml Soln (100units/ml) SC SCH ×5 (05:43→23:36)
[2019-11-19 06:14] LABS: Calcium 8.1 mg/dL (8.5-10.1); Potassium 4.4 mmol/L (3.5-5.1)
[2019-11-19 06:19] LABS: Albumin 2.8 g/dL (3.4-5.0); BUN/Creatinine Ratio 60.2; Bilirubin, Total 2.1 mg/dL (0.2-1.0); Magnesium 2.3 mg/dL (1.6-2.6); Phosphorus 3.2 mg/dL (2.5-4.90); Total Protein 5.5 g/dL (6.4-8.2)
--- NOTE | 2019-11-19 07:30 | NUR ---
Opening Shift Note Assumed care of patient, awake and alert. No S/S of distress/SOB or pain noted. Bed locked on low position, side rails up x2, bed alarms on at all times, call yu within reach, instructed on POC and to call for assist PRN,Instruction interpreted by Payal Gaona speaking Student nurse.,patient verbalized understanding.
[2019-11-19 09:00] VITALS: BP 158/68
--- NOTE | 2019-11-19 09:10 | NUR ---
MD VISIT DR. Remigio CASTRO HERE O SEE AND EXAMINED PATENT, RECEIVED ORDER FOR EKG PRIOR TO CHEMO INFUSION.
--- NOTE | 2019-11-19 11:05 | NUR ---
MD VISIT DR. GARCIA HERE TO SEE AND EXAMINED PATIENT,RECEIVED ORDER TO ADVANCE DIET TO FULL LIQUID,WEAN OFF TPN DISCONTINUE TIFFANIE CATHETER ,SEE ORDER WRITTEN.
[2019-11-19] MEDS: PANTOPRAZOLE 40 MG/10 ML VIAL INJ IV SCH (11:12)
[2019-11-19] MEDS: predniSONE 5 MG TAB PO SCH (11:14)
[2019-11-19] MEDS: SODIUM CHLOR 0.9% PF (SALINE LOCK) 10ML VIAL/SYR IV SCH ×2 (11:15→21:54)
[2019-11-19] MEDS: NTG 0.1MG/HR TOPICAL PATCH TD SCH (11:17)
[2019-11-19] MEDS: MEROPENEM 1GM IVPB 100 ML IV SCH ×2 (11:21→22:46)
--- NOTE | 2019-11-19 11:45 | NUR ---
INFORMED AND SPOKED TO KAYLEN PHARMACIST RE TAPERING OF TPN,RECEIVED INSTRUCTION TO TAPER TPN DOWN TO 53CC/HR,THEN DECREASED TO 26 AFTER 2 HOURS,THEN 13CC AFTER2 HORS THEN DISCONTINUE.
--- NOTE | 2019-11-19 12:00 | NUR ---
TPN TAPERED DOWN TO 53 CC/HR
[2019-11-19 12:41] VITALS: BP 151/71
[2019-11-19] MEDS ORDERED: predniSONE 20 MG TAB PO SCH (13:30)
[2019-11-19] MEDS ORDERED: predniSONE 5 MG TAB PO ONE (13:30)
--- NOTE | 2019-11-19 13:43 | NUR ---
BASELINE EKG DONE PRIOR TO CHEMO THERAPY
--- NOTE | 2019-11-19 13:45 | NUR ---
RIGHT GROIN TIFFANIE CATHETER DISCONTINUED,CATHETER INTACT,SITE BLEEDING,MANUAL PRESSURE APPLIED FOR 15 MINUTES,ROLLED 4X4 GAUZED AND FOAM TAPE APPLIED AND IN PLACE, 5 LB. SAND BAG APPLIED,EXPLAIN TO PATIENT INDICATION VERBALIZED UNDERSTANDING.
[2019-11-19] MEDS: ONDANSETRON HCL IV SCH (13:46)
[2019-11-19] MEDS: SODIUM CHL 0.9% IV SCH (13:46)
--- NOTE | 2019-11-19 13:46 | NUR ---
VITAL SIGNS TAKEN TEMP:98.2,HR100, RR14, BP130/54
[2019-11-19] MEDS ORDERED: ARSENIC TRIOXIDE IV SCH (14:00)
[2019-11-19] MEDS ORDERED: SODIUM CHL IV SCH (14:00)
--- NOTE | 2019-11-19 14:00 | NUR ---
TPN TAPERED DOWN TO 26 CC/HR
[2019-11-19 14:01] VITALS: BP 130/54
--- NOTE | 2019-11-19 14:36 | NUR ---
CHEMOTHERAPY STARTED BY ACE MILLER CHARGE NURSE,SEE eMAR FOR DETAIL
--- NOTE | 2019-11-19 14:45 | NUR ---
VITAL SIGN BP 142/59,HR94.TEMP:98.3 SATURATION ON ROOM AIR 95%,RR18
--- NOTE | 2019-11-19 14:46 | NUR ---
PATIENT PRE MEDICATED WITH LEANNA,SEE DeonR FOR DETAIL Addendum: 11/19/19 at 4854 by Hannah Felix RN RN ABOVE MEDICATION GIVEN AT 1322
--- NOTE | 2019-11-19 15:00 | NUR ---
VITAL SIGNS BP 155/55,HR91,RR18,TEMP:98.4,SAT.95% ROOM AIR
--- NOTE | 2019-11-19 15:15 | NUR ---
VITAL SIGNS BP 144/60,HR81,RR18,TEMP:98.0,SAT.96% ROOM AIR
--- NOTE | 2019-11-19 16:00 | NUR ---
TPN RATE TAPERED TO 13 ML/HR
[2019-11-19 16:18] VITALS: BP 112/59
--- NOTE | 2019-11-19 16:33 | NUR ---
Received a call from the [employer] Marissa Siddiqui [phone] , ,stated the family had requested a family member of the patient to come home and gave the information about the patient and the password, stated she needed the patient's diagnosis, and if she was having surgery, answered the question that were presented to me, express to her that because of COVID there is very limited visitation to the hospital.
--- NOTE | 2019-11-19 16:45 | NUR ---
CHEMOTHERAPY ENDED,PATIENT TOLERATED WELL,VITAL SIGNS TAKEN BP127/55,TEMP 97.9,HR101 ROOM AIR SATURATION 96%
--- NOTE | 2019-11-19 17:03 | NUR ---
RE ASSESSED RIGHT GROIN NO FURTHER BLEEDING NOTED
--- NOTE | 2019-11-19 19:20 | NUR ---
Opening Shift Note Assumed patient care from Bina HAYS. Patient is AOx4 and awake in bed. Patient right groin has no signs of active bleeding; per day shift nurse, the bandage was changed a couple hours ago. Patient HOB is at 30 degrees and bed is lock in lowest position. Call light within reach of patient. No s/s of distress or SOB. No pain noted at this time. Will continue to monitor.
--- NOTE | 2019-11-19 19:21 | NUR ---
Status unchanged,no distress,no discomfort, report given to incoming NOC shift RN
[2019-11-19] MEDS ORDERED: TPN PER PHARMACY IV NR ×12 (20:00)
[2019-11-19 21:47] VITALS: BP 127/58
[2019-11-19] MEDS: predniSONE 20 MG TAB PO SCH (21:54)
[2019-11-19] MEDS: TRETINOIN (CHEMOTHERAPY) 10 MG CAP PO SCH (21:58)
[2019-11-20 05:31] VITALS: BP 133/52
[2019-11-20] MEDS: ACCU-CHEK COMFORT CURVE STRIP VI SCH ×3 (05:49→17:38)
[2019-11-20] MEDS: hydrALAZINE HCL 25 MG TAB PO SCH ×3 (05:49→22:02)
[2019-11-20] MEDS: InsuLIN REG 1unit/0.01ml Soln (100units/ml) SC SCH ×4 (05:52→23:54)
[2019-11-20 06:34] LABS: Basophils # (auto) 0 10 ^3/uL (0-0.2); Basophils % (auto) 0.1 % (0.0-2.0); Eosinophils # (auto) 0 10 ^3/uL (0-0.8); Eosinophils % (auto) 0.1 % (0.0-7.0); Hematocrit 28.8 % (36.0-46.0); Hemoglobin 9.7 g/dL (12.2-16.2); Lymphocytes # (auto) 0.2 10 ^3/uL (0.4-5.4); Lymphocytes % (auto) 8.5 % (10.0-50.0); Mean Corpuscular Hemoglobin 28.9 pg (28.0-32.0); Mean Corpuscular Hgb Conc. 33.8 g/dL (32.0-36.0); Mean Corpuscular Volume 85.5 fL (80.0-100.0); Monocytes # (auto) 0.1 10 ^3/uL (0-1.3); Monocytes % (auto) 5.2 % (0.0-12.0); Neutrophils # (auto) 1.9 10 ^3/uL (1.6-8.6); Neutrophils % (auto) 86.1 % (37.0-80.0); Nucleated Red Blood Cells % 0.1 %; Platelet Count (auto) 107 10^3/uL (140-450); Red Blood Cells 3.37 10^6/uL (4.0-5.20); Red Cell Distribution Width 17.3 % (11.8-14.3); White Blood Cell 2.3 10^3/uL (4.4-10.8)
--- NOTE | 2019-11-20 07:30 | NUR ---
Opening Shift Note Assumed care of patient, awake and alert macedonian speaking. No S/S of distress/SOB or pain. Instructed on POC and to call for assist PRN, will continue to monitor for changes Q1hr and PRN.
[2019-11-20 09:00] VITALS: BP 117/56
[2019-11-20] MEDS: TRETINOIN (CHEMOTHERAPY) 10 MG CAP PO SCH ×2 (09:54→22:03)
[2019-11-20] MEDS: PANTOPRAZOLE 40 MG/10 ML VIAL INJ IV SCH (10:16)
[2019-11-20] MEDS: SODIUM CHLOR 0.9% PF (SALINE LOCK) 10ML VIAL/SYR IV SCH ×2 (10:16→22:01)
[2019-11-20] MEDS: NTG 0.1MG/HR TOPICAL PATCH TD SCH (10:17)
[2019-11-20] MEDS: MEROPENEM 1GM IVPB 100 ML IV SCH ×2 (12:17→22:57)
--- NOTE | 2019-11-20 12:52 | NUR ---
Nutrition Followup Notes Wt 78.3 kg Pt was awake and oriented but spoke no Greenlandic at time of rounds. pt is now off PN support and advanced to full liq diet with inadequate PO of 50% x 3 per RN doc Est Energy needs: 7963-9118 kcals (20-23 kcal/kgBW), Est Protein needs: 73-80 gms/day (1.0-1.1 gm/kgBW). Will continue to monitor and reassess prn. Labs: CA 8.1 L, ALB 2.8 L, BUN 53 H BM: Pt with 1 BM 9/3 per RN note Skin: Bs 17 mod risk, full details in medical care manager note. PES: 1) Increased nutrient needs r/t pt with no PO intake aeb pt is currently NPO 2) Altered nutrition related lab values r/t current medical condition aeb elevated pancreatic enzymes, hyperglycemia, hyperbilirubinemia, elev LFTs, mod hypoalbuminemia Comments: Will continue to monitor PO intake, skin status, pertinent labs and weight trends. Will f/u in 3-5 days. 1) Gradually advance pt to CCHO 45g oral diet when medically feasible and as tolerated. 2) consider Glucerna 1 carton bid if PO is low. 3) Continue current plan of care
[2019-11-20 13:00] VITALS: BP 122/53
[2019-11-20] MEDS: predniSONE 20 MG TAB PO SCH ×2 (14:39→22:01)
[2019-11-20] MEDS: ARSENIC TRIOXIDE IV SCH (14:39)
[2019-11-20] MEDS: SODIUM CHL 0.9% IV SCH (14:39)
[2019-11-20] MEDS: SODIUM CHL IV SCH (14:39)
[2019-11-20] MEDS: ONDANSETRON HCL IV SCH (14:39)
--- NOTE | 2019-11-20 14:41 | NUR ---
Chemotherapy verified with second RN Joycln charge nurse, then started, vs stable, patient was premedicated as ordered, all questions asked and answered. Infused into right upper arm picc line, good blood return noted, will continue to monitor.
[2019-11-20 17:00] VITALS: BP 125/50
--- NOTE | 2019-11-20 19:35 | NUR ---
Opening Shift Note Assumed care of patient, awake and alert. No S/S of distress/SOB or pain noted. Bed locked on low position, side rails up x2, bed alarms on at all times, call yu within reach, instructed on POC and Nursing routines,instructed to call for assistance.patient verbalized understanding.
--- NOTE | 2019-11-20 20:24 | NUR ---
Right Groin Bandage Right Groin site checked for active bleeding. Site is dry and intact, no bleeding noted. Bandage removed.
--- NOTE | 2019-11-20 21:12 | NUR ---
Report Handed off Report given to Ruth HAYS for remainder of shift.
--- NOTE | 2019-11-20 21:13 | NUR ---
Opening note Assumed care from LIS Santos. Patient is luxembourgish speaking. All questions answered. patient is alert and orientated x4. no sob or distress noted. Right groin is open to air. clean dry and intact. no bleeding. just mild bruising. Call light within reach, will continue to monitor q1hr and PRN.
[2019-11-20 23:07] VITALS: BP 126/56
[2019-11-21 05:30] VITALS: BP 100/47
[2019-11-21] MEDS: hydrALAZINE HCL 25 MG TAB PO SCH ×3 (06:00→22:24)
[2019-11-21] MEDS: InsuLIN REG 1unit/0.01ml Soln (100units/ml) SC SCH ×4 (06:00→23:56)
[2019-11-21] MEDS: ACCU-CHEK COMFORT CURVE STRIP VI SCH ×5 (06:16→23:56)
[2019-11-21 06:35] LABS: Basophils # (auto) 0 10 ^3/uL (0-0.2); Basophils % (auto) 0.2 % (0.0-2.0); Eosinophils # (auto) 0 10 ^3/uL (0-0.8); Hematocrit 26.9 % (36.0-46.0); Hemoglobin 8.8 g/dL (12.2-16.2); Lymphocytes # (auto) 0.2 10 ^3/uL (0.4-5.4); Lymphocytes % (auto) 7.9 % (10.0-50.0); Mean Corpuscular Hemoglobin 28.2 pg (28.0-32.0); Mean Corpuscular Hgb Conc. 32.6 g/dL (32.0-36.0); Mean Corpuscular Volume 86.6 fL (80.0-100.0); Monocytes # (auto) 0.1 10 ^3/uL (0-1.3); Monocytes % (auto) 5.2 % (0.0-12.0); Neutrophils # (auto) 2.3 10 ^3/uL (1.6-8.6); Neutrophils % (auto) 86.7 % (37.0-80.0); Nucleated Red Blood Cells % 0.1 %; Platelet Count (auto) 107 10^3/uL (140-450); Red Blood Cells 3.11 10^6/uL (4.0-5.20); Red Cell Distribution Width 17.6 % (11.8-14.3); White Blood Cell 2.6 10^3/uL (4.4-10.8)
[2019-11-21 07:24] LABS: Amylase 202 U/L (25-115); Lipase 1496 U/L (73-393)
--- NOTE | 2019-11-21 07:25 | NUR ---
Opening Shift Note Assumed care of patient, awake and alert, colombian speaking. No S/S of distress/SOB or pain. Instructed on POC and to call for assist PRN, will continue to monitor for changes Q1hr and PRN.
--- NOTE | 2019-11-21 07:49 | NUR ---
Closing note Endorsed care to day shift RN. no sob or distress noted.
[2019-11-21 09:00] VITALS: BP 139/58
[2019-11-21] MEDS: predniSONE 5 MG TAB PO SCH (10:02)
[2019-11-21] MEDS: PANTOPRAZOLE 40 MG/10 ML VIAL INJ IV SCH (10:02)
[2019-11-21] MEDS: SODIUM CHLOR 0.9% PF (SALINE LOCK) 10ML VIAL/SYR IV SCH ×2 (10:02→22:28)
[2019-11-21] MEDS: TRETINOIN (CHEMOTHERAPY) 10 MG CAP PO SCH ×2 (10:04→22:27)
[2019-11-21] MEDS: MEROPENEM 1GM IVPB 100 ML IV SCH ×2 (10:41→22:20)
[2019-11-21 13:00] VITALS: BP 127/67
[2019-11-21] MEDS: ONDANSETRON HCL IV SCH (13:41)
[2019-11-21] MEDS: SODIUM CHL IV SCH (13:41)
[2019-11-21] MEDS: SODIUM CHL 0.9% IV SCH (13:41)
[2019-11-21] MEDS: ARSENIC TRIOXIDE IV SCH (13:41)
--- NOTE | 2019-11-21 15:47 | NUR ---
re-assessment I spoke with Dr Deal regarding patients plan of care. Per Dr Deal patient will be here until end of next week for IV daily chemo. Per Dr Shaikh Dr Goodson is working something out for patient to finish her daily chemo in his office. I called patients daughter in law and informed her patient will need to go to the office daily for chemo and Inge informed me family will take patient daily for as long as needed. Patient will need a wheelchair and home health on discharge. Patient will be returning home on discharge per Inge and she will transport her home. Addendum: 11/21/19 at 1553 by Rosette BROWNLEE Amended: Links added.
[2019-11-21 17:00] VITALS: BP 126/47
--- NOTE | 2019-11-21 19:05 | NUR ---
OPENING SHIFT NOTE: Assumed care of patient. Patient awake, alert and oriented x 4, no s/s of distress, patient denies pain. Bed in lowest locked position with two side rails raised and call yu within reach. Instructed on poc and encouraged to call for assistance, all questions and concerns addressed, patient verbalizes understanding. Will continue to monitor Q1 hr and PRN.
[2019-11-21 21:42] VITALS: BP 121/50
[2019-11-22 05:00] VITALS: BP 110/42
[2019-11-22] MEDS: InsuLIN REG 1unit/0.01ml Soln (100units/ml) SC SCH ×3 (05:38→17:48)
[2019-11-22] MEDS: ACCU-CHEK COMFORT CURVE STRIP VI SCH ×3 (05:38→17:45)
[2019-11-22] MEDS: hydrALAZINE HCL 25 MG TAB PO SCH ×3 (05:39→21:48)
[2019-11-22 08:23] LABS: Basophils # (auto) 0 10 ^3/uL (0-0.2); Basophils % (auto) 0.4 % (0.0-2.0); Eosinophils # (auto) 0 10 ^3/uL (0-0.8); Eosinophils % (auto) 1.1 % (0.0-7.0); Hematocrit 27.6 % (36.0-46.0); Hemoglobin 9.2 g/dL (12.2-16.2); Lymphocytes # (auto) 1.2 10 ^3/uL (0.4-5.4); Mean Corpuscular Hemoglobin 28.8 pg (28.0-32.0); Mean Corpuscular Hgb Conc. 33.4 g/dL (32.0-36.0); Mean Corpuscular Volume 86.3 fL (80.0-100.0); Monocytes # (auto) 0.2 10 ^3/uL (0-1.3); Monocytes % (auto) 5.9 % (0.0-12.0); Neutrophils # (auto) 2.3 10 ^3/uL (1.6-8.6); Neutrophils % (auto) 60.6 % (37.0-80.0); Nucleated Red Blood Cells % 0.1 %; Platelet Count (auto) 110 10^3/uL (140-450); Red Cell Distribution Width 17.5 % (11.8-14.3); White Blood Cell 3.8 10^3/uL (4.4-10.8)
[2019-11-22 08:36] LABS: Albumin 2.9 g/dL (3.4-5.0); Potassium 3.7 mmol/L (3.5-5.1)
[2019-11-22 08:40] LABS: Bilirubin, Total 1.4 mg/dL (0.2-1.0); Total Protein 5.4 g/dL (6.4-8.2)
[2019-11-22 09:00] VITALS: BP 128/47
[2019-11-22] MEDS: PANTOPRAZOLE 40 MG/10 ML VIAL INJ IV SCH (09:27)
[2019-11-22] MEDS: predniSONE 5 MG TAB PO SCH (09:27)
[2019-11-22] MEDS: SODIUM CHLOR 0.9% PF (SALINE LOCK) 10ML VIAL/SYR IV SCH ×2 (09:27→21:40)
[2019-11-22] MEDS: TRETINOIN (CHEMOTHERAPY) 10 MG CAP PO SCH ×2 (09:28→21:47)
[2019-11-22 09:31] LABS: BUN/Creatinine Ratio 39.9
[2019-11-22 09:32] LABS: Magnesium 2.1 mg/dL (1.6-2.6)
[2019-11-22] MEDS: MEROPENEM 1GM IVPB 100 ML IV SCH (11:00)
[2019-11-22 12:36] VITALS: BP 126/54
[2019-11-22] MEDS: SODIUM CHLORIDE 0.9% 1,000 ML IV SCH (12:57)
[2019-11-22] MEDS: ONDANSETRON HCL IV SCH (13:31)
[2019-11-22] MEDS: SODIUM CHL 0.9% IV SCH (13:31)
[2019-11-22] MEDS: ARSENIC TRIOXIDE IV SCH (14:03)
[2019-11-22] MEDS: SODIUM CHL IV SCH (14:03)
[2019-11-22] MEDS: metroNIDAZOLE 500 MG TAB PO SCH ×2 (14:03→21:48)
[2019-11-22 16:46] VITALS: BP 113/48
[2019-11-22 21:47] VITALS: BP 131/58
[2019-11-22] MEDS: ONDANSETRON HCL 4 MG/2 ML VIAL IV PRN (22:00)
[2019-11-22] MEDS: LORazepam 2MG/ML-1ML VIAL IV PRN (22:00)
[2019-11-23] VITALS (8 sets, daily range): BP systolic 104–133; BP diastolic 46–66
[2019-11-23] MEDS: InsuLIN REG 1unit/0.01ml Soln (100units/ml) SC SCH ×4 (00:55→17:29)
[2019-11-23] MEDS: hydrALAZINE HCL 25 MG TAB PO SCH ×3 (05:51→22:14)
[2019-11-23] MEDS: metroNIDAZOLE 500 MG TAB PO SCH ×3 (05:51→22:15)
[2019-11-23] MEDS: ACCU-CHEK COMFORT CURVE STRIP VI SCH ×4 (05:52→17:28)
[2019-11-23 06:00] LABS: Hematocrit 26.3 % (36.0-46.0); Hemoglobin 8.6 g/dL (12.2-16.2); Mean Corpuscular Hgb Conc. 32.7 g/dL (32.0-36.0); Mean Corpuscular Volume 88.5 fL (80.0-100.0); Platelet Count (auto) 94 10^3/uL (140-450); Red Blood Cells 2.97 10^6/uL (4.0-5.20); White Blood Cell 3.4 10^3/uL (4.4-10.8)
[2019-11-23 06:27] LABS: Basophils % (manual) 0 (0.0-2.0); Blast Cells 0; Metamyelocytes % 0; Myelocytes % 0; Promyelocytes % 0; Reactive Lymphocytes 0
[2019-11-23 07:16] LABS: Band Neutrophils % (manual) 2; Eosinophils % (manual) 1 (0-7); Lymphocytes % (manual) 42 (10.0-50.0); Monocytes % (manual) 10 (0-12)
--- NOTE | 2019-11-23 07:30 | NUR ---
Opening Shift Note Assumed care of patient, awake and alert. No S/S of distress/SOB or pain on room air. Instructed on POC and to call for assist PRN, will continue to monitor for changes Q1hr and PRN. Bed in low and locked position, rails up x2, no-slip socks on.
[2019-11-23] MEDS: PANTOPRAZOLE 40 MG/10 ML VIAL INJ IV SCH (09:16)
[2019-11-23] MEDS: levoFLOXacin 500 MG TAB PO SCH (09:16)
[2019-11-23] MEDS: predniSONE 5 MG TAB PO SCH (09:16)
[2019-11-23] MEDS: SODIUM CHLOR 0.9% PF (SALINE LOCK) 10ML VIAL/SYR IV SCH ×2 (09:16→22:14)
[2019-11-23] MEDS: SODIUM CHLORIDE 0.9% 1,000 ML IV SCH (09:17)
[2019-11-23] MEDS: TRETINOIN (CHEMOTHERAPY) 10 MG CAP PO SCH ×2 (09:20→22:19)
--- NOTE | 2019-11-23 12:08 | NUR ---
Nutrition Followup Notes Wt 80.4 kg Pt was sleeping with no family at bedside at time of rounds. Pt is still with a soft diet with a fair appetite aeb pt po intake avg of 63% x 2 days per RN note. Est Energy needs: 8008-2611 kcals (20-23 kcal/kgBW), Est Protein needs: 73-80 gms/day (1.0-1.1 gm/kgBW). Will continue to monitor and reassess prn. Labs: BUN 61H, Creat 1.53H, Alb 2.9L BM: Pt with 1 BM 11/22 per RN note Skin: Bs 18 mod risk, full details in day care supervisor note. PES: Resolved: pt diet advanced to soft diet1) Increased nutrient needs r/t pt with no PO intake aeb pt is currently NPO 2) Altered nutrition related lab values r/t current medical condition aeb elevated pancreatic enzymes, hyperglycemia, hyperbilirubinemia, elev LFTs, mod hypoalbuminemia Comments: Will continue to monitor PO intake, skin status, pertinent labs and weight trends. Will f/u in 3-5 days. 1) Gradually advance pt to CCHO 45g oral diet when medically feasible and as tolerated. 2) consider Glucerna 1 carton bid if PO is low. 3) Continue current plan of care
[2019-11-23 12:24] LABS: Albumin 2.6 g/dL (3.4-5.0); Calcium 7.2 mg/dL (8.5-10.1); Magnesium 2.1 mg/dL (1.6-2.6); Potassium 3.9 mmol/L (3.5-5.1)
[2019-11-23 12:27] LABS: Bilirubin, Total 0.9 mg/dL (0.2-1.0); Total Protein 5.1 g/dL (6.4-8.2)
[2019-11-23] MEDS: ONDANSETRON HCL IV SCH (13:58)
[2019-11-23] MEDS: SODIUM CHL 0.9% IV SCH (13:58)
[2019-11-23] MEDS: SODIUM CHL IV SCH (14:33)
[2019-11-23] MEDS: ARSENIC TRIOXIDE IV SCH (14:33)
--- NOTE | 2019-11-23 16:30 | NUR ---
DR CARMONA AT BEDSIDE NOTIFIED PATIENT HAS BECOME INCREASINGLY TACHYCARDIA, NO NEW ORDERS.
--- NOTE | 2019-11-23 19:30 | NUR ---
Opening shift note Assumed care of patient from day shift RN. Patient A&Ox4, respirations even and non-labored without s/s of distress at this time. Bed in lowest locked position with 2 side rails up, call light within reach. Will continue to monitor Q1hr and PRN.
[2019-11-24] VITALS (8 sets, daily range): BP systolic 122–151; BP diastolic 46–58
[2019-11-24 05:39] LABS: Hemoglobin 8.3 g/dL (12.2-16.2)
[2019-11-24 05:42] LABS: Mean Corpuscular Hemoglobin 29.9 pg (28.0-32.0); Mean Corpuscular Hgb Conc. 34.7 g/dL (32.0-36.0); Mean Corpuscular Volume 86.3 fL (80.0-100.0); Platelet Count (auto) 81 10^3/uL (140-450); Red Blood Cells 2.78 10^6/uL (4.0-5.20); Red Cell Distribution Width 18.3 % (11.8-14.3); White Blood Cell 4.1 10^3/uL (4.4-10.8)
[2019-11-24 05:43] LABS: Basophils % (manual) 0 (0.0-2.0); Blast Cells 0; Promyelocytes % 0; Reactive Lymphocytes 0
[2019-11-24 05:51] LABS: BUN/Creatinine Ratio 39.1; Calcium 7.3 mg/dL (8.5-10.1); Potassium 3.8 mmol/L (3.5-5.1)
[2019-11-24] MEDS: InsuLIN REG 1unit/0.01ml Soln (100units/ml) SC SCH ×4 (06:00→18:09)
[2019-11-24] MEDS: ACCU-CHEK COMFORT CURVE STRIP VI SCH ×4 (06:01→18:09)
[2019-11-24 06:04] LABS: Band Neutrophils % (manual) 5; Eosinophils % (manual) 1 (0-7); Lymphocytes % (manual) 27 (10.0-50.0); Metamyelocytes % 4; Monocytes % (manual) 14 (0-12); Myelocytes % 5
[2019-11-24] MEDS: hydrALAZINE HCL 25 MG TAB PO SCH ×3 (06:07→20:52)
[2019-11-24] MEDS: metroNIDAZOLE 500 MG TAB PO SCH ×3 (06:07→20:59)
[2019-11-24] MEDS: SODIUM CHLORIDE 0.9% 1,000 ML IV SCH (06:07)
--- NOTE | 2019-11-24 07:16 | NUR ---
Closing shift note Patient resting, respirations even and non-labored with no s/s of distress at this time. Endorsed care to day shift RN.
--- NOTE | 2019-11-24 07:30 | NUR ---
Opening Shift Note Assumed care of patient, awake and alert. No S/S of distress/SOB or pain but stating she feels bad today, with no specific complaints. Instructed on POC and to call for assist PRN, will continue to monitor for changes Q1hr and PRN. Bed in low and locked position, rails up x2, no-slip socks on.
--- NOTE | 2019-11-24 08:11 | NUR ---
BOWEL SOUNDS ON ASSESSMENT, PATIENT BOWEL SOUNDS WERE HYPOACTIVE, PATIENT STATED SHE HAS NOT BEEN ABLE TO PASS GAS, SHE STATES HER APPETITE HAS DECREASED SIGNIFICANTLY, SHE FEELS LIKE WHEN SHE DOES EAT THE FOOD SITS ON THE TOP OF HER CHEST AND WONT GO DOWN. DENIES NAUSEA OR VOMITING. PAGE TO DR CARMONA TO NOTIFY, NEW ORDERS ADDED FOR ABDOMINAL CT. WHILE AT NURSES STATION, ANGEL KNUTSON, COVERING FOR DR CASTRO WAS PRESENT FOR ROUNDS AND NOTIFIED OF PATIENTS FEELING POOR, BOWEL SOUNDS AND FEELINGS OF INDIGESTION, RECOMMENDED TO MEDICATE WITH ZOFRAN PRN FOR NOW.
[2019-11-24] MEDS: ONDANSETRON HCL 4 MG/2 ML VIAL IV PRN (08:39)
--- NOTE | 2019-11-24 09:16 | NUR ---
ANGEL KNUTSON AT BEDSIDE WITH COPPER PLATE PRINTER AT BEDSIDE, EXPLAINED TO PATIENT HER DIAGNOSIS, CHEMOTHERAPY TREATMENT AND PROGNOSIS. NEW ORDERS ADDED FOR CONSTIPATION AND INDIGESTION/NAUSEA PRN, LABS ORDERED
[2019-11-24] MEDS: TRETINOIN (CHEMOTHERAPY) 10 MG CAP PO SCH ×2 (10:20→21:01)
[2019-11-24] MEDS: predniSONE 5 MG TAB PO SCH (10:21)
[2019-11-24] MEDS: levoFLOXacin 500 MG TAB PO SCH (10:21)
[2019-11-24] MEDS: SODIUM CHLOR 0.9% PF (SALINE LOCK) 10ML VIAL/SYR IV SCH ×2 (10:24→20:59)
[2019-11-24] MEDS: PANTOPRAZOLE 40 MG/10 ML VIAL INJ IV SCH (10:25)
--- NOTE | 2019-11-24 11:30 | NUR ---
PATIENT DECLINED P.T. BECAUSE OF BEING TIRED.
[2019-11-24] MEDS: METOCLOPRAMIDE HCL 5MG/ml INJ 2ml VIAL IV PRN (11:46)
--- NOTE | 2019-11-24 12:00 | NUR ---
FAMILY CALL PASSWORD PROVIDED, SPOKE TO PATIENTS DAUGHTER DANIEL, UPDATED ON PATIENT CONDITION, PLAN OF CARE AND ANSWERED ALL QUESTIONS. PER FAMILY REQUEST, THEY HAD A RECENT IN THE FAMILY AND ARE REQUESTING VISITATION TO INFORM PATIENT, CHARGE NURSE NOTIFIED AND FAMILY WILL CALL NEXT WEEK TO ARRANGE AN APPROPRIATE TIME TO LET HER KNOW.
[2019-11-24] MEDS: SODIUM CHL 0.9% IV SCH (13:39)
[2019-11-24] MEDS: ONDANSETRON HCL IV SCH (13:39)
[2019-11-24] MEDS: SODIUM CHL IV SCH (14:21)
[2019-11-24] MEDS: ARSENIC TRIOXIDE IV SCH (14:21)
[2019-11-24] MEDS ORDERED: LACTULOSE 20Gm/30ML SOLN PO PRN (15:30)
--- NOTE | 2019-11-24 16:38 | NUR ---
PAGE TO ZENIA ORTIZ TO NOTIFY OF PATIENTS ELEVATED HEART RATE, PATIENT HAS BECOME INCREASING TACHYCARDIC DURING INFUSION, AWAITING CALL BACK FOR ORDERS.
--- NOTE | 2019-11-24 16:53 | NUR ---
TELE CALL TO INQUIRE ABOUT ELEVATED HEART RATE, REQUESTED TO PRINT OUT A STRIP, MEASURED QT AT 32.
--- NOTE | 2019-11-24 17:27 | NUR ---
TACHYCARDIA-PAGE TO DR DIGGS PATIENT HAS BECOME INCREASINGLY TACHYCARDIC INTO THE 120S DURING AND POST CHEMOTHERAPY INFUSION OF ARSENIC, HIGHEST AT 129, PAGE TO NOTIFY MD AND REQUEST ORDERS FROM CARDIOLOGY, AWAITING CALL BACK.
--- NOTE | 2019-11-24 17:33 | NUR ---
ZENIA RETURN CALL ORDERS FOR AN EKG TO ENSURE QT NOT PROLONGED, REQUESTING CARDIOLOGY FOLLOW UP. NOTIFIED ANGEL KNUTSON THAT DR DIGGS HAS BEEN INFORMED ON CHANGE AND EKG SHOWS QT AT 334, QTC AT 474, PATIENT NOT EXHIBITING SIGNS OF SHORTNESS OF BREATH HOWEVER INFORMED ON PLEURAL EFFUSIONS OF RECENT CT AND INCREASED EDEMA TO PATIENTS FACE AND UPPER AND LOWER EXTREMITIES. NO OTHER ORDERS,AWAITING RETURN CALL FROM DR DIGGS.
--- NOTE | 2019-11-24 17:39 | NUR ---
DR DIGGS CALL BACK ORDERS RECEIVED FOR NS BOLUS OF 500, WILL RE-EVALUATE PATIENT HR.
[2019-11-24] MEDS ORDERED: SODIUM CHLORIDE 0.9% 500 ML IV ONE (18:00)
--- NOTE | 2019-11-24 19:30 | NUR ---
Opening shift note Assumed care of patient from day shift RN. Patient A&Ox4, respirations even and non-labored with no s/s of distress at this time. Bed in lowest locked position with 2 side rails up, call light within reach. Will continue to monitor Q1hr and PRN.
[2019-11-25] MEDS: SODIUM CHLORIDE 0.9% 1,000 ML IV SCH (00:15)
[2019-11-25] MEDS: ACCU-CHEK COMFORT CURVE STRIP VI SCH ×5 (00:18→23:35)
--- NOTE | 2019-11-25 00:23 | NUR ---
Patient bed alarm set Patient called stating that she was too afraid to move from the BSC back to her bed. She decided to get down off of the BSC and move back into bed but could not raise herself back up from her knee. Assisted the patient back into bed, discussed the need to call for assistance to the BSC and that the bed alarm was now on. The patient verbalized understanding and stated that she would call if she needed to use the BSC and wait for assistance.
[2019-11-25 05:00] VITALS: BP 139/65
[2019-11-25] MEDS: InsuLIN REG 1unit/0.01ml Soln (100units/ml) SC SCH ×5 (05:31→23:35)
[2019-11-25] MEDS: metroNIDAZOLE 500 MG TAB PO SCH ×3 (05:33→21:54)
[2019-11-25] MEDS: hydrALAZINE HCL 25 MG TAB PO SCH ×3 (05:33→21:54)
--- NOTE | 2019-11-25 07:10 | NUR ---
Closing shift note Patient resting without s/s of distress. Endorsed care to day shift RN.
[2019-11-25 07:16] LABS: Hemoglobin 8.3 g/dL (12.2-16.2); Mean Corpuscular Hemoglobin 29.3 pg (28.0-32.0)
[2019-11-25 07:17] LABS: Hematocrit 25.1 % (36.0-46.0); Mean Corpuscular Volume 88.6 fL (80.0-100.0); Platelet Count (auto) 80 10^3/uL (140-450); Red Blood Cells 2.83 10^6/uL (4.0-5.20); Red Cell Distribution Width 18.4 % (11.8-14.3); White Blood Cell 6.5 10^3/uL (4.4-10.8)
[2019-11-25 07:21] LABS: Basophils % (manual) 0 (0.0-2.0); Blast Cells 0; Promyelocytes % 0; Reactive Lymphocytes 0
[2019-11-25 07:38] LABS: Albumin 2.9 g/dL (3.4-5.0); Calcium 7.6 mg/dL (8.5-10.1); Potassium 3.8 mmol/L (3.5-5.1)
[2019-11-25 07:39] LABS: % Iron Saturation 49.1 % (15-50)
[2019-11-25 07:42] LABS: BUN/Creatinine Ratio 34.8; Total Protein 5.5 g/dL (6.4-8.2)
--- NOTE | 2019-11-25 08:00 | NUR ---
Opening Shift Note Assumed care of patient, awake and alert x4 . No S/S of distress/SOB or pain. Pt. reports feeling nauseated. This RN will medicate as ordered. Instructed on POC and to call for assist PRN, will continue to monitor for changes Q1hr and PRN.
[2019-11-25] MEDS: ONDANSETRON HCL 4 MG/2 ML VIAL IV PRN ×2 (08:13→13:11)
[2019-11-25 08:17] LABS: Band Neutrophils % (manual) 26; Eosinophils % (manual) 1 (0-7); Lymphocytes % (manual) 9 (10.0-50.0); Metamyelocytes % 18; Monocytes % (manual) 13 (0-12); Myelocytes % 5
[2019-11-25 09:00] VITALS: BP 153/69
--- NOTE | 2019-11-25 09:00 | NUR ---
Dr. Goodson/Oncology at bedside. Discussed POC with Pt. Dr. Goodson called and spoke to Pt. daughter, Jennyfer [phone] regarding POC.
[2019-11-25] MEDS: levoFLOXacin 500 MG TAB PO SCH (10:31)
[2019-11-25] MEDS: PANTOPRAZOLE 40 MG/10 ML VIAL INJ IV SCH (10:32)
[2019-11-25] MEDS: predniSONE 5 MG TAB PO SCH (10:32)
[2019-11-25] MEDS: SODIUM CHLOR 0.9% PF (SALINE LOCK) 10ML VIAL/SYR IV SCH ×2 (10:33→22:08)
[2019-11-25] MEDS: TRETINOIN (CHEMOTHERAPY) 10 MG CAP PO SCH ×2 (10:35→21:55)
[2019-11-25] MEDS ORDERED: BISACODYL 10 MG RECT SUPP PR ONE (12:30)
[2019-11-25 13:00] VITALS: BP 152/73
[2019-11-25] MEDS: SODIUM CHL 0.9% IV SCH (13:46)
[2019-11-25] MEDS: ONDANSETRON HCL IV SCH (13:46)
[2019-11-25] MEDS: ARSENIC TRIOXIDE IV SCH (14:33)
[2019-11-25] MEDS: SODIUM CHL IV SCH (14:33)
--- NOTE | 2019-11-25 19:15 | NUR ---
Opening shift note Assumed care of patient from day shift RN. Patient A&Ox4, respirations even and non-labored without s/s of distress at this time. Bed in lowest locked position with 2 side rails up, call light within reach. Advised patient to call for assistance, patient verbalized understanding. Will continue to monitor Q1hr and PRN.
[2019-11-25 23:08] VITALS: BP 150/70
--- NOTE | 2019-11-26 02:15 | NUR ---
Patient to BSC Assisted patient to BSC. Patient showed no s/s of dizziness or severe weakness while transferring. Patient was able to move a moderate amount of brown, formed stool. Patient gown and linens changed during this time. Patient assisted back into bed and tolerated the move well.
[2019-11-26] MEDS: LORazepam 2MG/ML-1ML VIAL IV PRN (03:15)
[2019-11-26 05:20] VITALS: BP 142/35
[2019-11-26] MEDS: ACCU-CHEK COMFORT CURVE STRIP VI SCH ×4 (05:48→22:20)
[2019-11-26] MEDS: InsuLIN REG 1unit/0.01ml Soln (100units/ml) SC SCH ×4 (05:50→22:20)
[2019-11-26] MEDS: hydrALAZINE HCL 25 MG TAB PO SCH ×3 (05:56→22:00)
[2019-11-26] MEDS: metroNIDAZOLE 500 MG TAB PO SCH ×3 (05:56→22:00)
[2019-11-26 06:54] LABS: Red Cell Distribution Width 19.2 % (11.8-14.3); White Blood Cell 7.7 10^3/uL (4.4-10.8)
[2019-11-26 06:58] LABS: Hematocrit 23.3 % (36.0-46.0); Mean Corpuscular Hgb Conc. 34.3 g/dL (32.0-36.0); Mean Corpuscular Volume 87.6 fL (80.0-100.0); Platelet Count (auto) 75 10^3/uL (140-450); Red Blood Cells 2.66 10^6/uL (4.0-5.20)
[2019-11-26 07:22] LABS: Basophils % (manual) 0 (0.0-2.0); Blast Cells 0; Eosinophils % (manual) 0 (0-7); Promyelocytes % 0; Reactive Lymphocytes 0
--- NOTE | 2019-11-26 07:30 | NUR ---
STATUS PT RESTING IN BED AWAKE A&O WITH NO C/O PAIN. RESPIRATIONS EQUAL AND UNLABORED, NO S/S OF DISTRESS. WILL CONTINUE TO MONITOR
--- NOTE | 2019-11-26 07:53 | NUR ---
Closing shift note Patient A&Ox4, respirations even and non-labored with no s/s of distress at this time. Endorsed care to day shift RN.
[2019-11-26 08:34] LABS: Band Neutrophils % (manual) 22; Lymphocytes % (manual) 6 (10.0-50.0); Metamyelocytes % 9; Monocytes % (manual) 6 (0-12); Myelocytes % 6
[2019-11-26 09:00] VITALS: BP 133/52
[2019-11-26] MEDS: PANTOPRAZOLE 40 MG/10 ML VIAL INJ IV SCH (09:54)
[2019-11-26] MEDS: SODIUM CHLOR 0.9% PF (SALINE LOCK) 10ML VIAL/SYR IV SCH ×2 (09:54→22:03)
[2019-11-26] MEDS: predniSONE 5 MG TAB PO SCH (09:55)
[2019-11-26] MEDS: levoFLOXacin 500 MG TAB PO SCH (09:55)
[2019-11-26] MEDS: TRETINOIN (CHEMOTHERAPY) 10 MG CAP PO SCH ×2 (10:19→22:02)
--- NOTE | 2019-11-26 11:34 | NUR ---
D/C Planning Per social service consult for wheelchair. Faxed clinical information to requesting for wheelchair to be deliver to front lobby and [facility].Obtain authorization from [facility] [id number].
--- NOTE | 2019-11-26 11:54 | NUR ---
DR CASTRO IN STATION PLAN FOR CHEMO OUTPATIENT ONCE MEDICATIONS ARE DELIVERED. (7-10 DAYS PER GLORIA). IV CHEMO PLAN TO BE REVIEWED WITH FAMILY BY DR CASTRO TODAY.
[2019-11-26 12:38] LABS: Calcium 7.7 mg/dL (8.5-10.1); Magnesium 2.2 mg/dL (1.6-2.6); Potassium 3.7 mmol/L (3.5-5.1)
[2019-11-26 12:41] LABS: BUN/Creatinine Ratio 35.7; Bilirubin, Total 0.8 mg/dL (0.2-1.0); Total Protein 5.6 g/dL (6.4-8.2)
[2019-11-26 13:00] VITALS: BP 133/56
[2019-11-26] MEDS: SODIUM CHL 0.9% IV SCH ×2 (13:49→14:31)
[2019-11-26] MEDS: ONDANSETRON HCL IV SCH (13:49)
--- NOTE | 2019-11-26 14:10 | NUR ---
WHEELCHAIR DELIVERED TO LOBBY AND BROUGHT TO BEDSIDE NAME TAG PLACED ON ALLERGY BAND AND PLACED ON RIGHT ARM REST OF WHEELCHAIR.
--- NOTE | 2019-11-26 14:13 | NUR ---
Nutrition Followup Notes Wt 82.5 kg Pt was sleeping with no family at bedside at time of rounds. Pt is on day 7 of chemotherapy per MD note. Pt is still with a soft diet tolerating well per MD note. Pt with a fair appetite aeb pt po intake avg of 50% x 2 days per RN note. Consider adding Glucerna 1 carton BID Est Energy needs: 6586-4448 kcals (20-23 kcal/kgBW), Est Protein needs: 73-80 gms/day (1.0-1.1 gm/kgBW). Will continue to monitor and reassess prn. Labs: BUN 46H, Creat 1.32H, Alb 2.9L, Ca 7.6L, GLUC 126H BM: Pt with 1 BM 11/22 per RN note Skin: Bs 19 low risk, full details in care process manager note. PES: Resolved: pt diet advanced to soft diet1) Increased nutrient needs r/t pt with no PO intake aeb pt is currently NPO partially resolved: 2) Altered nutrition related lab values r/t current medical condition aeb elevated pancreatic enzymes, hyperglycemia, hyperbilirubinemia, elev LFTs, mod hypoalbuminemia Comments: Will continue to monitor PO intake, skin status, pertinent labs and weight trends. Will f/u in 3-5 days. 1) Gradually advance pt to CCHO 45g oral diet when medically feasible and as tolerated. 2) consider Glucerna 1 carton bid if PO is low. 3) Continue current plan of care
[2019-11-26] MEDS: ARSENIC TRIOXIDE IV SCH (14:31)
--- NOTE | 2019-11-26 14:32 | NUR ---
CHEMO STARTED BASELINE VITALS 143/61 SAT 99% ON 2L TEMP 98.1 RR17 NO S/S OF DISTRESS, NO C/O PAIN AND NO REQUESTS AT THIS TIME. WILL REMAIN AT BEDSIDE FOR INITIAL PORTION OF INFUSION
[2019-11-26 17:00] VITALS: BP 120/42
--- NOTE | 2019-11-26 17:38 | NUR ---
NO ADVERSE REACTIONS FROM CHEMO AT THIS TIME
--- NOTE | 2019-11-26 19:25 | NUR ---
Opening shift note Assumed care of patient from day shift RN. Patient is A&Ox4, respirations even and non-labored with no s/s of distress at this time. Bed in lowest locked position with two side rails up and safety precautions in place. Call light within reach, BSC placed near bed. Will continue to monitor Q1hr and PRN.
[2019-11-26 22:01] VITALS: BP 138/57
--- NOTE | 2019-11-26 22:44 | NUR ---
PICC line dressing change Removed PICC dressing. No redness, swelling or pain noted. Cleansed site using sterile technique, applied new PICC line dressing. Both lumen pulled back blood, flushed, and patent. Patient tolerated well.
--- NOTE | 2019-11-26 23:06 | NUR ---
Patient requesting food Discussed food options that the patient felt she could tolerate. Patient decided on and currently drinking hot chicken and vegetable broth with cranberry juice. Tolerating well at this time.
--- NOTE | 2019-11-27 00:07 | NUR ---
Assisted patient to BSC Patient able to ambulate to the [facility] with minimal assistance. Voided approximately 200 mL of yellow urine. Patient assisted back into bed and tolerated the exercise well.
[2019-11-27] MEDS: ONDANSETRON HCL 4 MG/2 ML VIAL IV PRN (03:29)
[2019-11-27] MEDS: LORazepam 2MG/ML-1ML VIAL IV PRN (03:29)
[2019-11-27 05:05] VITALS: BP 133/55
[2019-11-27] MEDS: hydrALAZINE HCL 25 MG TAB PO SCH ×3 (05:31→21:50)
[2019-11-27] MEDS: metroNIDAZOLE 500 MG TAB PO SCH ×3 (05:31→21:50)
[2019-11-27] MEDS: ACCU-CHEK COMFORT CURVE STRIP VI SCH ×3 (05:32→17:26)
[2019-11-27] MEDS: InsuLIN REG 1unit/0.01ml Soln (100units/ml) SC SCH ×3 (05:35→17:26)
[2019-11-27 06:20] LABS: Hematocrit 21.8 % (36.0-46.0); Hemoglobin 7.7 g/dL (12.2-16.2)
[2019-11-27 06:27] LABS: Mean Corpuscular Hemoglobin 30.6 pg (28.0-32.0); Mean Corpuscular Hgb Conc. 35.1 g/dL (32.0-36.0); Mean Corpuscular Volume 87.2 fL (80.0-100.0); Platelet Count (auto) 64 10^3/uL (140-450); Red Cell Distribution Width 18.9 % (11.8-14.3); White Blood Cell 8.2 10^3/uL (4.4-10.8)
[2019-11-27 06:45] LABS: Basophils % (manual) 0 (0.0-2.0); Blast Cells 0; Eosinophils % (manual) 0 (0-7); Promyelocytes % 0; Reactive Lymphocytes 0
--- NOTE | 2019-11-27 07:25 | NUR ---
Closing shift note Patient resting, respirations even and non-labored with no s/s of distress at this time. Endorsed care to day shift RN.
--- NOTE | 2019-11-27 07:30 | NUR ---
STATUS PT RESTING IN BED WITH EYES CLOSED. RESPIRATIONS EQUAL AND UNLABORED. TELE REMAINS IN PLACED AND MONITORED. NO S/S OF DISTRESS. WILL CONTINUE TO MONITOR
[2019-11-27 08:49] LABS: Band Neutrophils % (manual) 20; Lymphocytes % (manual) 24 (10.0-50.0); Metamyelocytes % 12; Monocytes % (manual) 9 (0-12); Myelocytes % 1
[2019-11-27 09:00] VITALS: BP 121/51
[2019-11-27] MEDS: levoFLOXacin 500 MG TAB PO SCH (10:25)
[2019-11-27] MEDS: SODIUM CHLOR 0.9% PF (SALINE LOCK) 10ML VIAL/SYR IV SCH ×2 (10:25→21:49)
[2019-11-27] MEDS: PANTOPRAZOLE 40 MG/10 ML VIAL INJ IV SCH (10:25)
[2019-11-27] MEDS: predniSONE 5 MG TAB PO SCH (10:26)
[2019-11-27] MEDS: TRETINOIN (CHEMOTHERAPY) 10 MG CAP PO SCH ×2 (11:01→21:52)
[2019-11-27 13:00] VITALS: BP 137/55
--- NOTE | 2019-11-27 13:00 | NUR ---
DR GARCIA NOTIFIED OF WORSENING EDEMA PT HAS INCREASED PITTING EDEMA TO EXTREMITIES, RIGHT ARM WORSE THAN OTHERS. ORDERS TO PLACED FOR U/S TO R/O DVT AND LASIX
[2019-11-27] MEDS: ONDANSETRON HCL IV SCH (13:18)
[2019-11-27] MEDS: SODIUM CHL 0.9% IV SCH ×2 (13:18→14:16)
[2019-11-27] MEDS: ARSENIC TRIOXIDE IV SCH (14:16)
--- NOTE | 2019-11-27 14:16 | NUR ---
CHEMO STARTED PT PICC FLUSHES WELL, VITALS REMAIN STABLE.
[2019-11-27] MEDS ORDERED: FUROSEMIDE 40 MG/4 ML VIAL IV ONE (14:30)
[2019-11-27] MEDS ORDERED: POTASSIUM CHL 20 Meq TABLET PO ONE (14:30)
[2019-11-27] MEDS ORDERED: ASPirin-EC 325mg tab PO ONE (14:30)
--- NOTE | 2019-11-27 16:28 | NUR ---
ASSUMED CARE OF PATIENT NO DISTRESS NOTED.
[2019-11-27 16:58] VITALS: BP 139/55
--- NOTE | 2019-11-27 19:25 | NUR ---
Opening shift note Received report from francisca Byers RN. Assumed care of patient from day shift RN. Patient is A&Ox4, respirations even and non-labored with no s/s of distress at this time. Bed in lowest locked position with two side rails up and safety precautions in place. Call light within reach, bed side commode placed closed to bed. Will continue to monitor Q1hr and PRN.
[2019-11-27 21:42] VITALS: BP 140/54
[2019-11-28] MEDS: InsuLIN REG 1unit/0.01ml Soln (100units/ml) SC SCH ×5 (00:59→23:38)
[2019-11-28] MEDS: LORazepam 2MG/ML-1ML VIAL IV PRN (02:48)
[2019-11-28 05:00] VITALS: BP 126/60
[2019-11-28] MEDS: hydrALAZINE HCL 25 MG TAB PO SCH ×3 (06:16→21:47)
[2019-11-28] MEDS: ACCU-CHEK COMFORT CURVE STRIP VI SCH ×5 (06:16→23:35)
[2019-11-28] MEDS: metroNIDAZOLE 500 MG TAB PO SCH ×3 (06:16→21:47)
[2019-11-28 06:33] LABS: Hemoglobin 7.6 g/dL (12.2-16.2); Mean Corpuscular Hemoglobin 30.4 pg (28.0-32.0); White Blood Cell 9.3 10^3/uL (4.4-10.8)
[2019-11-28 06:35] LABS: Hematocrit 21.9 % (36.0-46.0); Mean Corpuscular Hgb Conc. 34.8 g/dL (32.0-36.0); Mean Corpuscular Volume 87.3 fL (80.0-100.0); Platelet Count (auto) 62 10^3/uL (140-450); Red Blood Cells 2.51 10^6/uL (4.0-5.20); Red Cell Distribution Width 19.4 % (11.8-14.3)
[2019-11-28 06:44] LABS: Basophils % (manual) 0 (0.0-2.0); Blast Cells 0; Eosinophils % (manual) 0 (0-7); Promyelocytes % 0; Reactive Lymphocytes 0
[2019-11-28 06:56] LABS: Albumin 2.7 g/dL (3.4-5.0); BUN/Creatinine Ratio 35.4; Calcium 7.4 mg/dL (8.5-10.1)
[2019-11-28 06:59] LABS: Bilirubin, Total 0.6 mg/dL (0.2-1.0); Total Protein 5.1 g/dL (6.4-8.2)
--- NOTE | 2019-11-28 07:35 | NUR ---
Opening Shift Note Assumed care of patient, awake and alert. No S/S of distress/SOB, reports chest/rib pain. EKG shows ST HR 126, will medicate as ordered. Instructed on POC and to call for assist PRN, will continue to monitor for changes Q1hr and PRN.
[2019-11-28 07:43] LABS: Band Neutrophils % (manual) 23; Lymphocytes % (manual) 9 (10.0-50.0); Metamyelocytes % 13; Monocytes % (manual) 8 (0-12); Myelocytes % 9
[2019-11-28] MEDS: MORPHINE SULF INJ 2 MG/ML SYRINGE 1ML IV PRN (08:04)
[2019-11-28 08:43] VITALS: BP 130/46
[2019-11-28] MEDS ORDERED: ASPirin-EC 325mg tab PO SCH (10:00)
[2019-11-28] MEDS: PANTOPRAZOLE 40 MG/10 ML VIAL INJ IV SCH (10:18)
[2019-11-28] MEDS: SODIUM CHLOR 0.9% PF (SALINE LOCK) 10ML VIAL/SYR IV SCH ×2 (10:18→21:47)
[2019-11-28] MEDS: levoFLOXacin 500 MG TAB PO SCH (10:18)
[2019-11-28] MEDS: predniSONE 5 MG TAB PO SCH (10:19)
[2019-11-28] MEDS: TRETINOIN (CHEMOTHERAPY) 10 MG CAP PO SCH ×2 (10:20→21:48)
--- NOTE | 2019-11-28 10:30 | NUR ---
PT REFUSED P.T. BECAUSE OF NOT FEELING WELL. RN NOTIFIED.
[2019-11-28] MEDS ORDERED: FUROSEMIDE 40 MG/4 ML VIAL IV ONE (11:30)
[2019-11-28] MEDS: ONDANSETRON HCL 4 MG/2 ML VIAL IV PRN ×2 (12:32→21:50)
[2019-11-28 13:00] VITALS: BP 111/43
[2019-11-28] MEDS: SODIUM CHL 0.9% IV SCH ×2 (14:26→14:27)
[2019-11-28] MEDS: ONDANSETRON HCL IV SCH (14:26)
[2019-11-28] MEDS: ARSENIC TRIOXIDE IV SCH (14:27)
[2019-11-28] MEDS ORDERED: HYDROmorphone HCL 2 MG/ML VL IV ONE (14:30)
[2019-11-28 16:39] VITALS: BP 129/65
[2019-11-28 21:29] VITALS: BP 136/60
[2019-11-29 05:00] VITALS: BP 139/57
[2019-11-29] MEDS: hydrALAZINE HCL 25 MG TAB PO SCH ×3 (05:57→21:51)
[2019-11-29] MEDS: InsuLIN REG 1unit/0.01ml Soln (100units/ml) SC SCH ×4 (05:58→23:17)
[2019-11-29] MEDS: ACCU-CHEK COMFORT CURVE STRIP VI SCH ×4 (05:58→23:17)
[2019-11-29] MEDS: metroNIDAZOLE 500 MG TAB PO SCH ×3 (05:58→21:55)
[2019-11-29 06:39] LABS: Hematocrit 21.3 % (36.0-46.0); Hemoglobin 7.4 g/dL (12.2-16.2); Mean Corpuscular Hemoglobin 30.5 pg (28.0-32.0); Mean Corpuscular Hgb Conc. 34.9 g/dL (32.0-36.0); Mean Corpuscular Volume 87.2 fL (80.0-100.0); Platelet Count (auto) 59 10^3/uL (140-450); Red Blood Cells 2.44 10^6/uL (4.0-5.20); Red Cell Distribution Width 19.3 % (11.8-14.3); White Blood Cell 10.1 10^3/uL (4.4-10.8)
[2019-11-29 06:43] LABS: Basophils % (manual) 0 (0.0-2.0); Blast Cells 0; Eosinophils % (manual) 0 (0-7); Promyelocytes % 0; Reactive Lymphocytes 0
[2019-11-29 07:23] LABS: Band Neutrophils % (manual) 19; Lymphocytes % (manual) 8 (10.0-50.0); Metamyelocytes % 12; Monocytes % (manual) 1 (0-12); Myelocytes % 13
--- NOTE | 2019-11-29 07:27 | NUR ---
Opening Shift Note Assumed care of patient, awake and alert, bangladeshi speaking. No S/S of distress, reports SOB and chest pressure, states it feels like she cant get a big breath. Will medicate per order. Instructed on POC and to call for assist PRN, will continue to monitor for changes Q1hr and PRN.
[2019-11-29] MEDS: HYDROmorphone HCL 2 MG/ML VL IV PRN ×2 (08:20→15:54)
[2019-11-29 09:00] VITALS: BP 117/44
[2019-11-29] MEDS: PANTOPRAZOLE 40 MG/10 ML VIAL INJ IV SCH (12:30)
[2019-11-29] MEDS: FUROSEMIDE 40 MG/4 ML VIAL IV SCH (12:30)
[2019-11-29] MEDS: SODIUM CHLOR 0.9% PF (SALINE LOCK) 10ML VIAL/SYR IV SCH ×2 (12:30→21:52)
[2019-11-29 12:31] LABS: Albumin 2.8 g/dL (3.4-5.0); Calcium 7.5 mg/dL (8.5-10.1); Magnesium 1.9 mg/dL (1.6-2.6); Potassium 3.8 mmol/L (3.5-5.1)
[2019-11-29] MEDS: TRETINOIN (CHEMOTHERAPY) 10 MG CAP PO SCH ×2 (12:31→21:58)
[2019-11-29] MEDS: predniSONE 5 MG TAB PO SCH (12:31)
[2019-11-29] MEDS: levoFLOXacin 500 MG TAB PO SCH (12:31)
[2019-11-29 12:36] LABS: BUN/Creatinine Ratio 34.5; Bilirubin, Total 0.6 mg/dL (0.2-1.0); Total Protein 5.3 g/dL (6.4-8.2)
[2019-11-29 13:00] VITALS: BP 121/48
--- NOTE | 2019-11-29 13:00 | NUR ---
THORACENTESIS COMPLETED BY DR RIOJAS IN ULTRASOUND. 500 ML OF FLUID REMOVED. PT TOLERATED PROCEDURE WELL. SPECIMEN SENT TO THE LAB. VSS. 114/60-72-18-96%.
--- NOTE | 2019-11-29 14:00 | NUR ---
Received pt resting sleeping comfortably, call light with in reach, commode at bed side, placed bed alarm on, will continue to monitor pt.
--- NOTE | 2019-11-29 14:25 | NUR ---
Nutrition Followup Notes Wt 81.7 kg Pt was sleeping with no family at bedside at time of rounds. Pt is on chemotherapy per MD note. Pt is curently on fine chop diet with inadequate PO of < 50% x 4 per RN doc Est Energy needs: 4206-1268 kcals (20-23 kcal/kgBW), Est Protein needs: 73-80 gms/day (1.0-1.1 gm/kgBW). Will continue to monitor and reassess prn. Labs: BUN 56 H CREAT 1.58 H GLU 125 H CA 7.4 L ALB 2.7 L BM: Pt with 1 BM 11/27 per RN note Skin: Bs 15 mod risk, full details in careers adviser note. PES: Resolved: 1) Increased nutrient needs r/t pt with no PO intake aeb pt is currently NPO partially 2) Altered nutrition related lab values r/t current medical condition aeb elevated pancreatic enzymes, hyperglycemia, hyperbilirubinemia, elev LFTs, mod hypoalbuminemia Comments: Will continue to monitor PO intake, skin status, pertinent labs and weight trends. Will f/u in 3-5 days. 1) Consider CCHO 45g oral diet along with current diet 2) consider Glucerna 1 carton bid if PO is low. 3) Continue current plan of care
[2019-11-29] MEDS: SODIUM CHL 0.9% IV SCH ×2 (14:51→14:52)
[2019-11-29] MEDS: ARSENIC TRIOXIDE IV SCH (14:51)
[2019-11-29] MEDS: ONDANSETRON HCL IV SCH (14:52)
[2019-11-29 17:00] VITALS: BP 135/54
--- NOTE | 2019-11-29 19:20 | NUR ---
Opening Shift Note Assumed care of patient, awake and alert. No S/S of distress/SOB, nausea, or pain. Bed in lowest locked position, side rails up x2, call light within reach. Instructed on POC and to call for assist PRN, will continue to monitor for changes Q1hr and PRN.
[2019-11-29 22:00] VITALS: BP 128/59
[2019-11-30 05:03] VITALS: BP 138/62
[2019-11-30] MEDS: InsuLIN REG 1unit/0.01ml Soln (100units/ml) SC SCH ×4 (06:00→23:44)
[2019-11-30] MEDS: metroNIDAZOLE 500 MG TAB PO SCH ×3 (06:14→22:05)
[2019-11-30] MEDS: ACCU-CHEK COMFORT CURVE STRIP VI SCH ×4 (06:14→23:44)
[2019-11-30] MEDS: hydrALAZINE HCL 25 MG TAB PO SCH ×3 (06:14→22:05)
[2019-11-30 06:30] LABS: Hemoglobin 7.3 g/dL (12.2-16.2)
[2019-11-30 06:33] LABS: Hematocrit 20.8 % (36.0-46.0); Mean Corpuscular Hemoglobin 30.6 pg (28.0-32.0); Mean Corpuscular Hgb Conc. 35.4 g/dL (32.0-36.0); Mean Corpuscular Volume 86.6 fL (80.0-100.0); Platelet Count (auto) 55 10^3/uL (140-450); Red Cell Distribution Width 19.5 % (11.8-14.3); White Blood Cell 9.3 10^3/uL (4.4-10.8)
[2019-11-30 06:52] LABS: Albumin 2.6 g/dL (3.4-5.0); BUN/Creatinine Ratio 37.5; Calcium 7.2 mg/dL (8.5-10.1); Magnesium 1.8 mg/dL (1.6-2.6); Potassium 3.7 mmol/L (3.5-5.1)
[2019-11-30 06:55] LABS: Bilirubin, Total 0.6 mg/dL (0.2-1.0); Total Protein 4.8 g/dL (6.4-8.2)
[2019-11-30 07:25] LABS: Basophils % (manual) 0 (0.0-2.0); Blast Cells 0; Eosinophils % (manual) 0 (0-7); Promyelocytes % 0; Reactive Lymphocytes 0
--- NOTE | 2019-11-30 07:42 | NUR ---
Closing Note Patient lying in bed, eyes closed, respirations even and unlabored, appears asleep. Patient awakens to name and touch. No s/s of distress. Care endorsed to dayshift RN.
[2019-11-30 09:42] VITALS: BP 129/59
[2019-11-30] MEDS: FUROSEMIDE 40 MG/4 ML VIAL IV SCH (10:06)
[2019-11-30] MEDS: PANTOPRAZOLE 40 MG/10 ML VIAL INJ IV SCH (10:06)
[2019-11-30] MEDS: levoFLOXacin 500 MG TAB PO SCH (10:06)
[2019-11-30] MEDS: ONDANSETRON HCL 4 MG/2 ML VIAL IV PRN ×2 (10:06→20:31)
[2019-11-30] MEDS: SODIUM CHLOR 0.9% PF (SALINE LOCK) 10ML VIAL/SYR IV SCH ×2 (10:07→22:05)
[2019-11-30] MEDS: predniSONE 5 MG TAB PO SCH (10:07)
[2019-11-30] MEDS: TRETINOIN (CHEMOTHERAPY) 10 MG CAP PO SCH ×2 (10:16→22:08)
[2019-11-30] MEDS ORDERED: POTASSIUM CHL 20 Meq TABLET PO ONE (11:30)
[2019-11-30] MEDS ORDERED: MAGNESIUM SULFATE 1GM/100ML 100 ML IV ONE (11:30)
[2019-11-30 12:47] LABS: Band Neutrophils % (manual) 22; Lymphocytes % (manual) 9 (10.0-50.0); Metamyelocytes % 15; Monocytes % (manual) 1 (0-12); Myelocytes % 12
[2019-11-30 13:23] VITALS: BP 128/55
[2019-11-30] MEDS: SODIUM CHL 0.9% IV SCH ×2 (14:05→14:58)
[2019-11-30] MEDS: ONDANSETRON HCL IV SCH (14:05)
[2019-11-30 14:58] VITALS: BP 125/42
[2019-11-30] MEDS: ARSENIC TRIOXIDE IV SCH (14:58)
--- NOTE | 2019-11-30 14:58 | NUR ---
Chemotherapy started per MD order VS prior to administration (refer to EMR). Patient resting in bed with even and unlabored respirations on 2 LPM NC, no distress noted.
[2019-11-30 15:12] VITALS: BP 122/51
--- NOTE | 2019-11-30 15:13 | NUR ---
Chemotherapy continues per MD order Patient tolerating well. VS stable. Call light within reach.
--- NOTE | 2019-11-30 17:00 | NUR ---
Chemotherapy completed Patient tolerated well. Respirations even and unlabored on 2 LPM NC, no distress noted. Patient denies pain. Patient reports nausea is tolerable. Call light within reach.
--- NOTE | 2019-11-30 17:46 | NUR ---
RE: Urination Patient reporting voiding small amounts of urine. Bladder scan performed. >300ml of urine noted in bladder. Patient voided in BSC. Oml of urine noted in bladder post-void.
--- NOTE | 2019-11-30 18:44 | NUR ---
Closing note Patient resting in bed with even and unlabored respirations on 2 LPM NC, no distress noted. Fall precautions in place with call light within reach.
--- NOTE | 2019-11-30 19:17 | NUR ---
Opening Shift Note Assumed care of patient, awake and alert. No S/S of distress/SOB, or pain. Bed in lowest locked position, side rails up x2, call light within reach. Instructed on POC and to call for assist PRN, will continue to monitor for changes Q1hr and PRN.
--- NOTE | 2019-11-30 19:17 | NUR ---
Care endorsed to LIS Grissom.
--- NOTE | 2019-11-30 19:44 | NUR ---
Family Call Spoke with daughter Jennyfer, updated on plan of care after password provided. All questions and concerns addressed.
[2019-12-01] MEDS: ONDANSETRON HCL 4 MG/2 ML VIAL IV PRN ×2 (00:01→08:40)
[2019-12-01 00:44] VITALS: BP 146/62
[2019-12-01] MEDS: hydrALAZINE HCL 25 MG TAB PO SCH ×3 (05:49→22:42)
[2019-12-01] MEDS: ACCU-CHEK COMFORT CURVE STRIP VI SCH ×3 (05:49→18:00)
[2019-12-01] MEDS: metroNIDAZOLE 500 MG TAB PO SCH ×3 (05:49→22:42)
[2019-12-01 06:00] VITALS: BP 139/59
[2019-12-01] MEDS: InsuLIN REG 1unit/0.01ml Soln (100units/ml) SC SCH ×3 (06:00→18:42)
[2019-12-01] MEDS: HYDROmorphone HCL 2 MG/ML VL IV PRN (06:03)
[2019-12-01 06:26] LABS: Hematocrit 22.1 % (36.0-46.0); Hemoglobin 7.9 g/dL (12.2-16.2); Mean Corpuscular Hemoglobin 30.8 pg (28.0-32.0); Mean Corpuscular Hgb Conc. 35.5 g/dL (32.0-36.0); Mean Corpuscular Volume 86.7 fL (80.0-100.0); Platelet Count (auto) 55 10^3/uL (140-450); Red Blood Cells 2.55 10^6/uL (4.0-5.20); Red Cell Distribution Width 19.1 % (11.8-14.3); White Blood Cell 8.9 10^3/uL (4.4-10.8)
[2019-12-01 06:37] LABS: Albumin 2.9 g/dL (3.4-5.0); Calcium 7.6 mg/dL (8.5-10.1); Potassium 3.9 mmol/L (3.5-5.1)
[2019-12-01 06:39] LABS: BUN/Creatinine Ratio 39.1; Magnesium 1.9 mg/dL (1.6-2.6)
[2019-12-01 06:47] LABS: Basophils % (manual) 0 (0.0-2.0); Blast Cells 0; Eosinophils % (manual) 0 (0-7); Promyelocytes % 0; Reactive Lymphocytes 0
--- NOTE | 2019-12-01 06:48 | NUR ---
Closing Note Patient lying in bed, awake and alert. No s/s of distress. Call light within reach. Will endorse care to dayshift RN.
[2019-12-01 06:53] LABS: Bilirubin, Total 0.6 mg/dL (0.2-1.0); Total Protein 5.3 g/dL (6.4-8.2)
--- NOTE | 2019-12-01 08:00 | NUR ---
Morning note Patient resting in bed with even and labored respirations, no accessory muscle use noted. Patient on 2 LPM NC. Instructed patient on POC, fall precautions and to call for assistance as needed. Patient verbalized understanding. Fall precautions in place with call light within reach; BSC at bedside.
[2019-12-01 08:35] VITALS: BP 126/54
[2019-12-01] MEDS: PANTOPRAZOLE 40 MG/10 ML VIAL INJ IV SCH (08:40)
[2019-12-01] MEDS: levoFLOXacin 500 MG TAB PO SCH (08:41)
[2019-12-01] MEDS: FUROSEMIDE 40 MG/4 ML VIAL IV SCH (08:41)
[2019-12-01] MEDS: predniSONE 5 MG TAB PO SCH (08:41)
[2019-12-01] MEDS: SODIUM CHLOR 0.9% PF (SALINE LOCK) 10ML VIAL/SYR IV SCH ×2 (08:54→22:00)
--- NOTE | 2019-12-01 09:04 | NUR ---
Episode of vomiting Patient had episode of emesis after administration of PO medications. Emesis clear with no blood noted. No pills noted in emesis. Patient has been medicated with PRN anti-nausea medication per MD order. Partial bed linen changed; patient gown changed; and patient provided with washcloths. Call light within reach. No distress noted.
[2019-12-01 09:19] LABS: Band Neutrophils % (manual) 19; Lymphocytes % (manual) 10 (10.0-50.0); Metamyelocytes % 8; Monocytes % (manual) 2 (0-12); Myelocytes % 11
--- NOTE | 2019-12-01 09:27 | NUR ---
Contacted RE: edema/N/V Contacted Dr. Goodson's office to update MD of patients BUE and BLE edema of 4+ as well as N/V. Spoke with MD's on-call answer service.
[2019-12-01] MEDS: TRETINOIN (CHEMOTHERAPY) 10 MG CAP PO SCH (09:29)
--- NOTE | 2019-12-01 10:16 | NUR ---
POC discussed with Dr. Goodson & Dr. Deal Notified MD's of patient's edema and SOB. MD's aware. MD's to review POC.
--- NOTE | 2019-12-01 11:15 | NUR ---
RE: N/V Patient had episode of vomiting. Clear liquid emesis. Patient cleansed and provided with new emesis bag. IV Reglan PRN to be administered per MD order.
[2019-12-01] MEDS: METOCLOPRAMIDE HCL 5MG/ml INJ 2ml VIAL IV PRN (11:24)
--- NOTE | 2019-12-01 11:31 | NUR ---
Scheduled IV Zofran to be administered per Dr. Goodson Medication not to be held.
[2019-12-01] MEDS ORDERED: MAGNESIUM SULFATE 1GM/100ML 100 ML IV ONE (12:15)
--- NOTE | 2019-12-01 12:45 | NUR ---
RE: Lunch meal Patient reports nausea with a poor appetite. Patient refused lunch meal tray. Patient accepted gaby-ganesh.
[2019-12-01 12:50] VITALS: BP 142/71
--- NOTE | 2019-12-01 13:00 | NUR ---
RE: Scheduled IV Zofran Pharmacist called this RN to clarify that scheduled IV Zofran is to be administered even though Arsenic Trioxide has been discontinued. RN notified pharmacist that medication is to be administered per Dr. Goodson. Medication to be sent to unit per pharmacist.
[2019-12-01] MEDS: methylPREDNISolone SOD SUCC 40 MG/ML VL IV SCH ×2 (14:09→22:41)
--- NOTE | 2019-12-01 14:30 | NUR ---
RE: Activity Patient transferred to [facility] with minimal assistance. Patient tolerated okay. SOB noted. Patient on 2 LPM NC. Patient transferred back to bed with no complications. Call light within reach.
--- NOTE | 2019-12-01 14:30 | NUR ---
Medication not available - called pharmacy Contacted pharmacy to notify that scheduled IV Zofran is not available. Medication to be sent to unit per pharmacy scheduler, Rachel.
--- NOTE | 2019-12-01 15:31 | NUR ---
RE: IV scheduled Zofran clarification Notified pharmacist that at 1131 RN clarified with MD that scheduled IV Zofran is to be administered as scheduled even though Arsenic Trioxide has been discontinued. Pharmacist verbalized understanding.
[2019-12-01] MEDS: SODIUM CHL 0.9% IV SCH (16:34)
[2019-12-01] MEDS: ONDANSETRON HCL IV SCH (16:34)
[2019-12-01 16:43] VITALS: BP 152/53
--- NOTE | 2019-12-01 16:45 | NUR ---
Patient resting in bed with eyes closed Respirations even and labored on 2 LPM NC, no distress noted. No accessory muscle use noted. Fall precautions in place with call light within reach.
--- NOTE | 2019-12-01 17:28 | NUR ---
PATIENT REFUSED PT. Addendum: 12/01/19 at 1728 by IVET JIMENEZ PTT Amended: Links added.
--- NOTE | 2019-12-01 18:25 | NUR ---
RE: Dinner meal Patient reports poor appetite. Patient refused dinner meal tray. Patient accepted milk and jell-o.
--- NOTE | 2019-12-01 18:59 | NUR ---
Care endorsed to LIS Grissom.
--- NOTE | 2019-12-01 19:10 | NUR ---
Opening Shift Note Assumed care of patient, eyes closed, respirations even and unlabored, appears asleep. Bed in lowest locked position, side rails up x2, call light within reach. Instructed on POC and to call for assist PRN, will continue to monitor for changes Q1hr and PRN.
--- NOTE | 2019-12-01 21:30 | NUR ---
Patient provided chicken broth and orange juice, eating slowly, but tolerating well. Patient denies nausea at this time. Will continue care.
[2019-12-01 23:06] VITALS: BP 148/67
[2019-12-02] MEDS: ACCU-CHEK COMFORT CURVE STRIP VI SCH ×4 (00:14→17:59)
[2019-12-02] MEDS: LORazepam 2MG/ML-1ML VIAL IV PRN (03:25)
[2019-12-02 05:29] VITALS: BP 141/65
[2019-12-02] MEDS: hydrALAZINE HCL 25 MG TAB PO SCH ×3 (06:43→21:56)
[2019-12-02] MEDS: metroNIDAZOLE 500 MG TAB PO SCH (06:43)
[2019-12-02] MEDS: methylPREDNISolone SOD SUCC 40 MG/ML VL IV SCH ×3 (06:43→21:56)
[2019-12-02 06:49] LABS: White Blood Cell 6.1 10^3/uL (4.4-10.8)
[2019-12-02 06:53] LABS: Hematocrit 20.1 % (36.0-46.0); Hemoglobin 7.1 g/dL (12.2-16.2); Mean Corpuscular Hemoglobin 30.6 pg (28.0-32.0); Mean Corpuscular Hgb Conc. 35.1 g/dL (32.0-36.0); Mean Corpuscular Volume 87.1 fL (80.0-100.0); Platelet Count (auto) 48 10^3/uL (140-450); Red Blood Cells 2.31 10^6/uL (4.0-5.20)
[2019-12-02] MEDS: InsuLIN REG 1unit/0.01ml Soln (100units/ml) SC SCH ×4 (06:57→18:10)
[2019-12-02 07:00] LABS: Basophils % (manual) 0 (0.0-2.0); Blast Cells 0; Eosinophils % (manual) 0 (0-7); Monocytes % (manual) 0 (0-12); Promyelocytes % 0; Reactive Lymphocytes 0; Red Cell Distribution Width 20.4 % (11.8-14.3)
--- NOTE | 2019-12-02 07:03 | NUR ---
Closing Note Patient lying in bed, awake and alert. No s/s of distress. Call light within reach. Will endorse care to dayshift RN.
[2019-12-02 07:27] LABS: Band Neutrophils % (manual) 12; Lymphocytes % (manual) 12 (10.0-50.0); Metamyelocytes % 4; Myelocytes % 1
--- NOTE | 2019-12-02 07:45 | NUR ---
Opening Shift Note Assumed care of patient, awake and alert. No S/S of distress/SOB or pain. Instructed on POC and to call for assist PRN, will continue to monitor for changes Q1hr and PRN. Bed locked in lowest position with two side rails up and call light in reach.
[2019-12-02 08:00] VITALS: BP 136/58
[2019-12-02] MEDS: FUROSEMIDE 40 MG/4 ML VIAL IV SCH (09:51)
[2019-12-02] MEDS: PANTOPRAZOLE 40 MG/10 ML VIAL INJ IV SCH (09:51)
[2019-12-02] MEDS: levoFLOXacin 500 MG TAB PO SCH (09:52)
[2019-12-02] MEDS: SODIUM CHLOR 0.9% PF (SALINE LOCK) 10ML VIAL/SYR IV SCH ×2 (09:52→21:56)
[2019-12-02 12:15] LABS: Potassium 3.8 mmol/L (3.5-5.1)
[2019-12-02 12:24] LABS: BUN/Creatinine Ratio 36.7; Bilirubin, Total 0.6 mg/dL (0.2-1.0); Calcium 7.4 mg/dL (8.5-10.1); Magnesium 2.2 mg/dL (1.6-2.6); Total Protein 5.4 g/dL (6.4-8.2)
[2019-12-02 13:00] VITALS: BP 140/62
--- NOTE | 2019-12-02 13:45 | NUR ---
RECEIVED A CALL FROM DR GARCIA REGARDING REPEAT ECHO ORDER SHE PLACED. I WILL CONTACT ECHO DEPARTMENT AND DR DIGGS TO OKAY THE REPEAT ECHO.
--- NOTE | 2019-12-02 14:13 | NUR ---
Nutrition Followup Notes Wt 83.2 kg Pt was sleeping with no family at bedside at time of rounds. Pt is on chemotherapy per MD note. Pt is still with inadequate po intake aeb pt with 1 po intake of 25% 11/28, 1 po intake of 50% 11/29 and 11/30 per RN note. Consider adding Glucerna 1 carton BID Est Energy needs: 9450-1043 kcals (20-23 kcal/kgBW), Est Protein needs: 73-80 gms/day (1.0-1.1 gm/kgBW). Will continue to monitor and reassess prn. Labs: BUN 59H, Creat 1.51H, Alb 2.9L, GLUC 152H BM: Pt with 1 BM 11/30 per RN note Skin: Bs 15 mod risk, full details in hospice care transitions coordinator note. PES: Resolved: 1) Increased nutrient needs r/t pt with no PO intake aeb pt is currently NPO partially 2) Altered nutrition related lab values r/t current medical condition aeb elevated pancreatic enzymes, hyperglycemia, hyperbilirubinemia, elev LFTs, mod hypoalbuminemia Comments: Will continue to monitor PO intake, skin status, pertinent labs and weight trends. Will f/u in 3-5 days. 1) Consider CCHO 45g oral diet along with current diet 2) consider Glucerna 1 carton bid if PO is low. 3) Continue current plan of care
--- NOTE | 2019-12-02 14:40 | NUR ---
SPOKE TO [employer] IN[employer] PARAEDUCATOR, PER [facility] I WOULD NEED TO OKAY REPEAT ECHO WITH CARDIOLOGISTS PER THEIR DEPARTMENT POLICY. PAGED DR DIGGS TO GET ORDERS TO REPEAT ECHO. WILL AWAIT RESPONSE.
--- NOTE | 2019-12-02 15:40 | NUR ---
RECEIVED RESPONSE FROM DR DIGGS . PER DR DIGGS IT IS OKAY TO DO ANOTHER ECHO. CALLED STRESS LAB NO ANSWER.
--- NOTE | 2019-12-02 16:10 | NUR ---
CALLED STRESS LAB NO ANSWER NO ANSWERING MACHINE. WILL TRY AGAIN .
--- NOTE | 2019-12-02 16:32 | NUR ---
CALLED PBX PER AND PAGED STRESS PERSON. PER PBX THEY ARE ABLE TO BE PAGED.
[2019-12-02 17:00] VITALS: BP 141/67
--- NOTE | 2019-12-02 17:00 | NUR ---
NO CALL BACK RECEIVED CHARGE NURSE ACE TODD . I WILL PASS ON TO NOC NURSE FOR TOMORROWS DAY SHIFT.
[2019-12-02] MEDS: SODIUM CHL 0.9% IV SCH (17:45)
[2019-12-02] MEDS: ONDANSETRON HCL IV SCH (17:45)
[2019-12-02 22:00] VITALS: BP 135/61
--- NOTE | 2019-12-02 23:15 | NUR ---
PICC LINE DRESSING CHANGE. PATIENT TOLERATED WELL. WILL CONTINUE TO MONITOR Q1 AND PRN.
[2019-12-03] MEDS: InsuLIN REG 1unit/0.01ml Soln (100units/ml) SC SCH ×5 (00:50→23:48)
[2019-12-03] MEDS: methylPREDNISolone SOD SUCC 40 MG/ML VL IV SCH ×3 (05:09→21:32)
[2019-12-03] MEDS: hydrALAZINE HCL 25 MG TAB PO SCH (05:09)
[2019-12-03 05:10] VITALS: BP 143/72
[2019-12-03] MEDS: ACCU-CHEK COMFORT CURVE STRIP VI SCH ×5 (05:21→23:45)
[2019-12-03 05:53] LABS: Hematocrit 19.4 % (36.0-46.0); Mean Corpuscular Hemoglobin 30.7 pg (28.0-32.0); Mean Corpuscular Hgb Conc. 35.5 g/dL (32.0-36.0); Mean Corpuscular Volume 86.6 fL (80.0-100.0); Platelet Count (auto) 44 10^3/uL (140-450); Red Blood Cells 2.24 10^6/uL (4.0-5.20); Red Cell Distribution Width 19.3 % (11.8-14.3); White Blood Cell 4.9 10^3/uL (4.4-10.8)
[2019-12-03 06:12] LABS: Calcium 7.1 mg/dL (8.5-10.1); Potassium 3.7 mmol/L (3.5-5.1)
[2019-12-03 06:15] LABS: BUN/Creatinine Ratio 38.6
[2019-12-03 06:45] LABS: Hemoglobin 6.9 g/dL (12.2-16.2)
[2019-12-03 06:47] LABS: Basophils % (manual) 0 (0.0-2.0); Blast Cells 0; Eosinophils % (manual) 0 (0-7); Promyelocytes % 0; Reactive Lymphocytes 0
--- NOTE | 2019-12-03 06:50 | NUR ---
Critical Lab Paged hospitalist, awaiting call back. Will continue to monitor patient Q1 and PRN.
--- NOTE | 2019-12-03 07:15 | NUR ---
End of Shift Note Endorsed care to dayshift RN. At this time patient has no s/s of distress or SOB. Informed dayshijosé miguel RN of critical lab, still no call back from hospitalist.
[2019-12-03 07:27] LABS: Band Neutrophils % (manual) 5; Lymphocytes % (manual) 19 (10.0-50.0); Metamyelocytes % 4; Monocytes % (manual) 4 (0-12); Myelocytes % 1
--- NOTE | 2019-12-03 07:30 | NUR ---
STATUS PT RESTING IN BED AWAKE A&O WITH NO C/O PAIN. EDEMA TO EXTREMITIES PITTING +4. PT RESPIRATIONS ARE SHALLOW AND MORE LABORED THAN PREVIOUS SHIFTS WITH PT. REPOSITIONED FOR COMFORT AND EASE OF BREATHING, WILL MEDICATE WITH LASIX PER MAY. VITALS REMAIN STABLE, TELE IN PLACE, BED IN LOW POSITION WITH CALL LIGHT IN REACH. NO CURRENT REQUEST WILL CONTINUE TO MONITOR
[2019-12-03 09:00] VITALS: BP 141/61
[2019-12-03] MEDS: PANTOPRAZOLE 40 MG/10 ML VIAL INJ IV SCH (09:42)
[2019-12-03] MEDS: FUROSEMIDE 40 MG/4 ML VIAL IV SCH ×2 (09:43→18:20)
[2019-12-03] MEDS: SODIUM CHLOR 0.9% PF (SALINE LOCK) 10ML VIAL/SYR IV SCH ×2 (09:43→21:40)
--- NOTE | 2019-12-03 09:44 | NUR ---
ECHO IN PROGRESS AT BEDSIDE
--- NOTE | 2019-12-03 10:29 | NUR ---
12-LEAD COMPLETE S/P PT C/O CHEST PAIN 12/13
--- NOTE | 2019-12-03 12:40 | NUR ---
OFF THE FLOOR FOR CT
[2019-12-03 13:00] VITALS: BP 134/69
--- NOTE | 2019-12-03 14:15 | NUR ---
Pt refused PM PT tx. Addendum: 12/03/19 at 1553 by Austen Gore BULK FLUIDS HANDLER Amended: Links added.
--- NOTE | 2019-12-03 14:44 | NUR ---
UP TO BSC WITH ASSIST 750ML URINE OUT
--- NOTE | 2019-12-03 15:33 | NUR ---
LAB CALLED WITH TROP LEVEL OF 1.21 DR GARCIA PAGED TO NOTIFY, AWAITING RETURN CALL
[2019-12-03 16:52] VITALS: BP 130/66
--- NOTE | 2019-12-03 17:33 | NUR ---
I&O DR GARCIA REQUESTS MORE MONITORED I&O REPORT GIVEN TO JOURNAL BOX INSPECTOR THAT ALL URINE NEEDS TO BE MEASURED AND DOCUMENTED. WILL PASS ALONG IN REPORT TO NOC. PATIENT ABLE TO TRANSFER TO BSC WITH MIN ASSISTANCE.
--- NOTE | 2019-12-03 18:37 | NUR ---
PT UP TO BSC 300 OF URINE OUT SMALL BM PRESENT NOC SUPERINTENDENT RECREATION INFORMED OF NEED TO MONITOR I&O AND TO ENCOURAGE GETTING UP TO BSC
--- NOTE | 2019-12-03 18:38 | NUR ---
EDEMA IMPROVEMENT PT LEGS ELEVATED THROUGHOUT THE DAY, ENCOURAGED TO GET OOB AND LASIX INCREASED. PT LEGS ARE SHOWING IMPROVEMENT AND HAVE REDUCED IN SIZE
--- NOTE | 2019-12-03 18:50 | NUR ---
DR GARCIA PAGED X2 NO RETURN CALL. DR DIGGS NOTIFIED OF ELEVATED TROP AND PREVIOUS CHEST PAIN. PT HAS NO CURRENT CHEST PAIN, DECREASED WORK OF BREATHING, AND IS RESTING COMFORTABLY.
--- NOTE | 2019-12-03 19:04 | NUR ---
DR DIGGS RESPONDED TO NOTIFICATION NO NEW ORDERS WRITTEN
[2019-12-03] MEDS: POTASSIUM CHL 10 Meq TABLET PO SCH (21:32)
[2019-12-03 22:00] VITALS: BP 149/71
--- NOTE | 2019-12-03 22:45 | NUR ---
Critical Lab Made Dr. Bowden aware of critical troponin.Troponin trending down. No new orders received. Will continue to monitor patient Q1 and PRN. At this time patient has no s/s of distress or SOB.
[2019-12-04] VITALS (12 sets, daily range): BP systolic 139–154; BP diastolic 64–85
[2019-12-04] MEDS: ACCU-CHEK COMFORT CURVE STRIP VI SCH ×3 (06:04→17:24)
[2019-12-04] MEDS: methylPREDNISolone SOD SUCC 40 MG/ML VL IV SCH ×3 (06:04→20:36)
[2019-12-04] MEDS: FUROSEMIDE 40 MG/4 ML VIAL IV SCH ×2 (06:06→17:24)
[2019-12-04] MEDS: InsuLIN REG 1unit/0.01ml Soln (100units/ml) SC SCH ×3 (06:21→17:27)
[2019-12-04 07:16] LABS: Hematocrit 20.5 % (36.0-46.0); Hemoglobin 7.1 g/dL (12.2-16.2); Mean Corpuscular Hemoglobin 30.4 pg (28.0-32.0); Mean Corpuscular Hgb Conc. 34.9 g/dL (32.0-36.0); Mean Corpuscular Volume 87.3 fL (80.0-100.0); Platelet Count (auto) 44 10^3/uL (140-450); Red Blood Cells 2.34 10^6/uL (4.0-5.20); Red Cell Distribution Width 19.4 % (11.8-14.3); White Blood Cell 4.7 10^3/uL (4.4-10.8)
--- NOTE | 2019-12-04 07:18 | NUR ---
End of Shift Note Endorsed care to dayshift RN. At this time patient has no s/s of distress or SOB.
[2019-12-04 07:25] LABS: Potassium 3.6 mmol/L (3.5-5.1)
[2019-12-04 07:28] LABS: Band Neutrophils % (manual) 0; Basophils % (manual) 0 (0.0-2.0); Blast Cells 0; Myelocytes % 0; Promyelocytes % 0; Reactive Lymphocytes 0
--- NOTE | 2019-12-04 07:30 | NUR ---
Opening Shift Note Assumed care of patient, awake and alert, BRITISH SPEAKING. No S/S of distress/SOB or pain, noted swelling hands, feet and face. Instructed on POC and to call for assist PRN, will continue to monitor for changes Q1hr and PRN.
[2019-12-04 07:54] LABS: Albumin 3.1 g/dL (3.4-5.0); Bilirubin, Total 0.8 mg/dL (0.2-1.0); Calcium 7.1 mg/dL (8.5-10.1); Total Protein 5.5 g/dL (6.4-8.2)
[2019-12-04 07:55] LABS: Magnesium 1.8 mg/dL (1.6-2.6)
[2019-12-04 08:15] LABS: Eosinophils % (manual) 1 (0-7); Lymphocytes % (manual) 11 (10.0-50.0); Metamyelocytes % 2; Monocytes % (manual) 4 (0-12)
[2019-12-04] MEDS: SODIUM CHLOR 0.9% PF (SALINE LOCK) 10ML VIAL/SYR IV SCH ×2 (11:02→20:38)
[2019-12-04] MEDS: POTASSIUM CHL 10 Meq TABLET PO SCH ×2 (11:02→20:37)
[2019-12-04] MEDS: PANTOPRAZOLE 40 MG/10 ML VIAL INJ IV SCH (11:02)
--- NOTE | 2019-12-04 13:30 | NUR ---
Received call from Dr Deal stating that Dr Goodson wrote a order for the patient to be transferred to a Higher level of Care. He has spoken to Dr Arti Mendenhall at [facility] a medical transcription supervisor and he has accepted the patient. Ask if she had spoken to the family about the transfer and stated she has not, Stated we would have to find out if the transfer was okay with the family.
[2019-12-04] MEDS ORDERED: POTASSIUM CHL 20 Meq TABLET PO ONE (13:45)
[2019-12-04] MEDS ORDERED: MAGNESIUM SULFATE 1GM/100ML 100 ML IV ONE (13:45)
[2019-12-04] MEDS ORDERED: METOPROLOL TARTRATE 25 MG TAB PO ONE (13:45)
--- NOTE | 2019-12-04 14:30 | NUR ---
Called the [facility] charge nurse and ask if she will find out from the family if they agreed to the transfer.
--- NOTE | 2019-12-04 15:00 | NUR ---
Spoke with patients daughter Jennyfer, regarding transfer to higher level of care, she states that she will talk to her family and get back to me today, CM notified, will await call.
[2019-12-04] MEDS: ACETYLCYSTEINE 20%(200MG/ML) SOL 4ML NEB SCH ×2 (15:02→22:38)
--- NOTE | 2019-12-04 15:10 | NUR ---
Called Patty MENDOZA at [facility] [phone] regarding the transfer and stated she would have to review the case and see if she would give authorization.
--- NOTE | 2019-12-04 15:26 | NUR ---
PATIENT GETTING ULTRASOUND DONE. WILL TRY LATER. Addendum: 12/04/19 at 1727 by IVET JIMENEZ PTT Amended: Links added.
--- NOTE | 2019-12-04 15:45 | NUR ---
Received a call from Patty LYNN at [facility] and stated the doctor had reviewed the case and gave authorization fro the transfer. The auth for the Hospital #[id number] and for transportation #[id number].
--- NOTE | 2019-12-04 19:00 | NUR ---
Opening Note Assumed care of patient, awake and alert,Montserratian speaking only. No S/S of distress/SOB or pain, noted swelling hands, arms, feet and face. Instructed on POC and to call for assist PRN, will continue to monitor for changes. Patient receiving blood product, no signs of distress.
--- NOTE | 2019-12-04 19:29 | NUR ---
I have spoken with family they are ok with higher level of care.
[2019-12-04] MEDS: METOPROLOL TARTRATE 25 MG TAB PO SCH (20:37)
[2019-12-04] MEDS: LEVALBUTEROL HCL 1.25 MG/3 ML NEB NEB SCH (22:38)
[2019-12-05] MEDS: InsuLIN REG 1unit/0.01ml Soln (100units/ml) SC SCH ×4 (01:10→18:49)
[2019-12-05] MEDS: ACCU-CHEK COMFORT CURVE STRIP VI SCH ×4 (01:11→18:47)
[2019-12-05 05:00] VITALS: BP 140/70
[2019-12-05] MEDS: FUROSEMIDE 40 MG/4 ML VIAL IV SCH ×2 (05:54→18:47)
[2019-12-05] MEDS: methylPREDNISolone SOD SUCC 40 MG/ML VL IV SCH ×2 (05:55→14:34)
--- NOTE | 2019-12-05 06:34 | NUR ---
LOW BLOOD GLUCOSE BLOOD SUGAR 65, PATIENT ASYMPTOMATIC, HAD APPLE JUICE, TOLERATED WELL, DENIES DIZZINESS OR DISCOMFORT.
[2019-12-05] MEDS: ACETYLCYSTEINE 20%(200MG/ML) SOL 4ML NEB SCH ×2 (07:14→14:25)
[2019-12-05] MEDS: LEVALBUTEROL HCL 1.25 MG/3 ML NEB NEB SCH ×2 (07:14→14:25)
[2019-12-05 08:52] VITALS: BP 149/68
[2019-12-05] MEDS: PANTOPRAZOLE 40 MG/10 ML VIAL INJ IV SCH (09:51)
[2019-12-05] MEDS: POTASSIUM CHL 10 Meq TABLET PO SCH (09:53)
[2019-12-05] MEDS: METOPROLOL TARTRATE 25 MG TAB PO SCH (09:53)
[2019-12-05] MEDS: SODIUM CHLOR 0.9% PF (SALINE LOCK) 10ML VIAL/SYR IV SCH (09:53)
--- NOTE | 2019-12-05 11:30 | NUR ---
Faxed initial request to [facility] for patient to be [place], face sheet, H&P, and MD order for transfer to [facility].
[2019-12-05 11:44] LABS: BUN/Creatinine Ratio 31.9; Calcium 7.1 mg/dL (8.5-10.1); Magnesium 1.8 mg/dL (1.6-2.6); Potassium 3.4 mmol/L (3.5-5.1)
[2019-12-05 11:52] LABS: Hematocrit 28.1 % (36.0-46.0); Hemoglobin 9.8 g/dL (12.2-16.2); Mean Corpuscular Hemoglobin 29.6 pg (28.0-32.0); Mean Corpuscular Hgb Conc. 34.9 g/dL (32.0-36.0); Mean Corpuscular Volume 84.8 fL (80.0-100.0); Platelet Count (auto) 39 10^3/uL (140-450); Red Blood Cells 3.31 10^6/uL (4.0-5.20); Red Cell Distribution Width 16.9 % (11.8-14.3); White Blood Cell 6.8 10^3/uL (4.4-10.8)
[2019-12-05 12:01] LABS: Basophils % (manual) 0 (0.0-2.0); Blast Cells 0; Eosinophils % (manual) 0 (0-7); Metamyelocytes % 0; Myelocytes % 0; Promyelocytes % 0; Reactive Lymphocytes 0
[2019-12-05 12:04] LABS: Bilirubin, Total 1.1 mg/dL (0.2-1.0); Total Protein 5.1 g/dL (6.4-8.2)
--- NOTE | 2019-12-05 12:30 | NUR ---
Received a call from [employer] transportation mechanic and stated to fax progress notes for 3 days, labs for 3 days Covid results x-rays and she would send a return agreement to be sent back to her. All items faxed as requested
--- NOTE | 2019-12-05 12:38 | NUR ---
Nutrition Followup Notes Wt 78.5 kg Pt was sleeping with no family at bedside at time of rounds. Pt is on chemotherapy per MD note. Pt with adequate po of > 75% x 6 per RN doc Est Energy needs: 1822-6877 kcals (20-23 kcal/kgBW), Est Protein needs: 73-80 gms/day (1.0-1.1 gm/kgBW). Will continue to monitor and reassess prn. Labs: BUN 41 H CREAT 1.08 H GLU 145 H ALB 3.1 L BM: Pt with 2 BM 12/03 per RN note Skin: Bs 14 mod risk, full details in vision care associate note. PES: Resolved: 1) Increased nutrient needs r/t pt with no PO intake aeb pt is currently NPO partially 2) Altered nutrition related lab values r/t current medical condition aeb elevated pancreatic enzymes, hyperglycemia, hyperbilirubinemia, elev LFTs, mod hypoalbuminemia Comments: Will continue to monitor PO intake, skin status, pertinent labs and weight trends. Will f/u in 3-5 days. 1) Consider CCHO 45g oral diet along with current diet 2) consider Glucerna 1 carton bid if PO is low. 3) Continue current plan of care
[2019-12-05 12:42] VITALS: BP 144/71
[2019-12-05 12:59] LABS: Band Neutrophils % (manual) 10; Lymphocytes % (manual) 1 (10.0-50.0); Monocytes % (manual) 3 (0-12)
[2019-12-05] MEDS ORDERED: MAGNESIUM SULFATE 1GM/100ML 100 ML IV ONE (13:30)
[2019-12-05] MEDS ORDERED: POTASSIUM CHL 20 Meq TABLET PO ONE (13:30)
--- NOTE | 2019-12-05 13:55 | NUR ---
Received a call from Sonal medical staff credentialing coordinator at from [facility] [place] and gave verbal update on the patient and informed her that I did not receive a return agreement and stated she would fax one.
[2019-12-05 15:11] VITALS: BP 139/75
--- NOTE | 2019-12-05 15:29 | NUR ---
Faxed a [place] agreement to Sonal at [facility] called an made her aware [phone]
--- NOTE | 2019-12-05 16:23 | NUR ---
Called [facility] spoke with Candace relay dispatcher, placed patient on Will Call #[phone]. Called [facility] to see if they received the return agreement, no answer left message
[2019-12-05 16:46] VITALS: BP 145/67
--- NOTE | 2019-12-05 17:36 | NUR ---
Received call from Sonal echols, bed number received room 7821 at [facility], will notify [facility] and family.
--- NOTE | 2019-12-05 21:06 | NUR ---
Patient instruction given, pertinent papers were signed. Previous shift RN spoke with daughter about pt's wheelchair. Wheelchair brought by comfort filler in the ambulance. Pt picked up via gurney in stable condition. No noted short of breath and denied pain. Hawkins catheter draining well. Picc line to right upper arm dressing clean and intact, line drawing blood swiftly. no other skin issues noted, only generalized edema. Breathing even and unlabored. Report given to [facility] with call back .
[2019-12-05] MEDS ORDERED: POTASSIUM CHL 10 Meq TABLET PO SCH (22:00)
== END 2019-12-05 21:04 | disposition short-term general hospital (02) | DRG 871 ==
LOC: ER 04:27 → EDBD 04:27 → TELE 04:28 → TELE-WESTW 11:35 → DOU IN ICU 11-05 17:12 → TELE-WESTW 11-15 14:43
PROVIDERS: ADMIT Internal Medicine; ATTEND Internal Medicine
PROC: BF101ZZ Fluoroscopy of Bile Ducts using Low Osmolar Contrast (ICD-10-PCS; 2019-11-01)
PROC: 0FJB8ZZ Inspection of Hepatobiliary Duct, Via Natural or Artificial Opening Endoscopic (ICD-10-PCS; principal; 2019-11-01 12:55)
PROC: 30233R1 Transfusion of Nonautologous Platelets into Peripheral Vein, Percutaneous Approach (ICD-10-PCS; 2019-11-05)
PROC: 02HV33Z Insertion of Infusion Device into Superior Vena Cava, Percutaneous Approach (ICD-10-PCS; 2019-11-06)
PROC: B548ZZA Ultrasonography of Superior Vena Cava, Guidance (ICD-10-PCS; 2019-11-06)
PROC: 0JHN3XZ Insertion of Tunneled Vascular Access Device into Right Lower Leg Subcutaneous Tissue and Fascia, Percutaneous Approach (ICD-10-PCS; 2019-11-06)
PROC: 30233P1 Transfusion of Nonautologous Frozen Red Cells into Peripheral Vein, Percutaneous Approach (ICD-10-PCS; 2019-11-07)
PROC: 30233N1 Transfusion of Nonautologous Red Blood Cells into Peripheral Vein, Percutaneous Approach (ICD-10-PCS; 2019-11-07)
PROC: 07DQ3ZX Extraction of Sternum Bone Marrow, Percutaneous Approach, Diagnostic (ICD-10-PCS; 2019-11-14)
PROC: 0W9B3ZZ Drainage of Left Pleural Cavity, Percutaneous Approach (ICD-10-PCS; 2019-11-29)
DX: A41.9 Sepsis, unspecified organism (principal); K85.10 Biliary acute pancreatitis without necrosis or infection; N17.0 Acute kidney failure with tubular necrosis; M31.1 Thrombotic microangiopathy; J96.01 Acute respiratory failure with hypoxia; I21.A1 Myocardial infarction type 2; I50.33 Acute on chronic diastolic (congestive) heart failure; C92.40 Acute promyelocytic leukemia, not having achieved remission; D61.818 Other pancytopenia; I13.0 Hypertensive heart and chronic kidney disease with heart failure and stage 1 through stage 4 chronic kidney disease, or unspecified chronic kidney disease; J98.11 Atelectasis; K80.00 Calculus of gallbladder with acute cholecystitis without obstruction; J90 Pleural effusion, not elsewhere classified; D64.9 Anemia, unspecified; K76.0 Fatty (change of) liver, not elsewhere classified; E87.6 Hypokalemia; E78.5 Hyperlipidemia, unspecified; E11.22 Type 2 diabetes mellitus with diabetic chronic kidney disease; E66.01 Morbid (severe) obesity due to excess calories; I12.9 Hypertensive chronic kidney disease with stage 1 through stage 4 chronic kidney disease, or unspecified chronic kidney disease; N18.30 Chronic kidney disease, stage 3 unspecified; E78.00 Pure hypercholesterolemia, unspecified; E61.1 Iron deficiency; Z53.9 Procedure and treatment not carried out, unspecified reason; I50.83 High output heart failure; R31.29 Other microscopic hematuria; Z95.0 Presence of cardiac pacemaker; Z20.828 Contact with and (suspected) exposure to other viral communicable diseases
CPT/HCPCS: 10022; 36415; 36514; 36569; 71045; 71250; 74018; 74176; 74177; 74181; 76001; 76604; 76705; 76942; 80048; 80053; 80074; 80202; 81001; 82040; 82105; 82150; 82247; 82607; 82728; 82962; 83036; 83540; 83550; 83615; 83690; 83735; 83880; 83986; 84075; 84100; 84132; 84450; 84460; 84478; 84484; 84550; 85007; 85014; 85018; 85025; 85027; 85045; 85384; 85610; 85730; 86038; 86850; 86880; 86900; 86901; 86920; 87040; 87081; 87086; 87205; 87426; 89051; 93005; 93306; 93970; 93971; 94640; 97110; 97116; 97163; 97530; C9113; G0378; J0610; J0696; J1100; J1447; J1815; J2001; J2185; J2250; J2405; J2704; J3480; J3490; J7131; Q9956

== ENCOUNTER 2020-09-26 13:00 | Emergency (ER) | payer OTHER, MEDICAID ==
[~2020-09-26] VITALS: Ht 160 cm; Wt 68.0 kg
[~2020-09-26 13:00] MED LIST changes: +B-CO-5 PO; -LISI-646 PO; +LISI20TA28 PO; +POTA-167 PO
[2020-09-26 16:45] VITALS: BP 141/87
== END 2020-09-26 17:16 | disposition home or self-care (01) ==
LOC: ER 13:00
DX: J06.9 Acute upper respiratory infection, unspecified (principal); I10 Essential (primary) hypertension; E11.9 Type 2 diabetes mellitus without complications; E78.5 Hyperlipidemia, unspecified; Z95.0 Presence of cardiac pacemaker; Z79.899 Other long term (current) drug therapy; Z88.8 Allergy status to other drugs, medicaments and biological substances; Z20.822 Contact with and (suspected) exposure to COVID-19
CPT/HCPCS: 36415; 71045; 87426

== ENCOUNTER 2020-12-04 12:25 | Emergency (ER) | payer OTHER, MEDICAID ==
[~2020-12-04] VITALS: Ht 160 cm; Wt 68.0 kg
[2020-12-04 14:12] VITALS: BP 118/71
[2020-12-04] MEDS ORDERED: cefTRIAXone SOD 1,000 MG VL IM ONE (14:45)
== END 2020-12-04 15:54 | disposition home or self-care (01) ==
LOC: ER 12:25
DX: M10.9 Gout, unspecified (principal); M19.022 Primary osteoarthritis, left elbow; I10 Essential (primary) hypertension; E11.9 Type 2 diabetes mellitus without complications; E78.5 Hyperlipidemia, unspecified; Z95.0 Presence of cardiac pacemaker; Z79.899 Other long term (current) drug therapy; Z88.8 Allergy status to other drugs, medicaments and biological substances
CPT/HCPCS: 73080; 96372; 99283; J0696

== ENCOUNTER 2021-03-19 10:48 | Emergency (ER) | payer OTHER, MEDICAID ==
[~2021-03-19] VITALS: Ht 160 cm; Wt 68.0 kg
[2021-03-19 11:24] LABS: Urine WBC None Seen /hpf (0 - 5)
[2021-03-19 11:33] LABS: Urine Bacteria FEW /hpf (None Seen); Urine Blood 2+ /uL (Negative); Urine Specific Gravity 1.014 (1.001-1.035)
[2021-03-19 11:47] VITALS: BP 144/60
[2021-03-19 13:35] LABS: Basophils # (auto) 0 10 ^3/uL (0-0.2); Basophils % (auto) 0.2 % (0.0-2.0); Eosinophils # (auto) 0 10 ^3/uL (0-0.8); Eosinophils % (auto) 0.1 % (0.0-7.0); Hematocrit 38.4 % (36.0-46.0); Lymphocytes # (auto) 1.1 10 ^3/uL (0.4-5.4); Lymphocytes % (auto) 7.6 % (10.0-50.0); Mean Corpuscular Hemoglobin 27.2 pg (28.0-32.0); Mean Corpuscular Hgb Conc. 33.9 g/dL (32.0-36.0); Mean Corpuscular Volume 80.1 fL (80.0-100.0); Monocytes # (auto) 0.7 10 ^3/uL (0-1.3); Neutrophils # (auto) 12.4 10 ^3/uL (1.6-8.6); Neutrophils % (auto) 87.1 % (37.0-80.0); Red Cell Distribution Width 15.2 % (11.8-14.3); White Blood Cell 14.2 10^3/uL (4.4-10.8)
[2021-03-19 14:01] LABS: Albumin 4.4 g/dL (3.4-5.0); Calcium 9.3 mg/dL (8.5-10.1); Potassium 3.3 mmol/L (3.5-5.1)
[2021-03-19 14:05] LABS: BUN/Creatinine Ratio 13.2; Bilirubin, Total 0.8 mg/dL (0.2-1.0); Total Protein 8.5 g/dL (6.4-8.2)
[2021-03-19] MEDS ORDERED: KETOROLAC TROMETH 30 MG/ML 1ML VIAL IV ONE (14:30)
[2021-03-19] MEDS ORDERED: SODIUM CHLORIDE 0.9% 500 ML IV ONE (14:30)
[2021-03-19] MEDS ORDERED: ONDANSETRON HCL 4 MG/2 ML VIAL IV ONE (14:30)
[2021-03-19] MEDS ORDERED: KETOROLAC TROMETH 60MG/2ML VIAL ONE (14:34)
== END 2021-03-19 14:49 | disposition home or self-care (01) ==
LOC: ER 10:48
DX: K80.20 Calculus of gallbladder without cholecystitis without obstruction (principal); K76.89 Other specified diseases of liver; I10 Essential (primary) hypertension; E11.9 Type 2 diabetes mellitus without complications; E78.5 Hyperlipidemia, unspecified; E03.9 Hypothyroidism, unspecified; Z95.0 Presence of cardiac pacemaker; Z79.899 Other long term (current) drug therapy; Z88.8 Allergy status to other drugs, medicaments and biological substances
CPT/HCPCS: 36415; 74176; 76705; 80053; 81001; 83690; 85025; 96374; 96375; 99284; J1885; J2405; J7040; 96361

== ENCOUNTER 2024-03-07 08:47 | Emergency (ER) | payer OTHER, MEDICAID ==
[~2024-03-07] VITALS: Ht 160 cm; Wt 65.7 kg
[~2024-03-07 08:47] MED LIST changes: -ALEN70TA2 PO; +ALEN70TA21 PO; +GABA-1308 PO; -GABA100C9 PO; -LISI20TA28 PO; +LISI20TA56 PO; -POTA-167 PO; +POTA-211 PO
--- NOTE | 2024-03-07 10:01 | DVH ---
EXAM: XY CHEST TWO VIEWS ROUTINE CLINICAL HISTORY: COUGH COMPARISON: None TECHNIQUE: Frontal and lateral view of the chest was obtained FINDINGS: Lines and Tubes: None Lungs: No focal consolidation. Pleura: No effusion. No pneumothorax. Cardiomediastinal contours: Unremarkable, Atherosclerotic vascular calcifications of the thoracic ao rta are noted. Bones: No acute osseous abnormality. IMPRESSION: No acute cardiopulmonary disease.
[2024-03-07] MEDS ORDERED: BENZ200C64 PO (10:13)
[2024-03-07] MEDS ORDERED: AZIT500T66 PO (10:13)
[2024-03-07] MEDS ORDERED: ACETAMINOPHEN 325 MG TAB PO ONE (10:15)
--- NOTE | 2024-03-07 10:16 | ED.PDOC ---
SOB-HPI HPI Comments A 83 YEAR OLD FEMALE PRESENTS TO THE ED WITH COMPLAINT OF COUGH. PATIENT STATES SHE HAS BEEN EXPERIENCING A COUGH, SORE THROAT, AND CONGESTION FOR THE PAST 3 DAYS. PATIENT DENIES FEVER, CHILLS, SHORTNESS OF BREATH, CHEST PAIN, ABDOMINAL PAIN, NAUSEA, VOMITING, HEADACHE, OR OTHER COMPLAINTS. NO OTHER SYMPTOMS OR MODIFYING FACTORS AT THIS TIME. PATIENT IS ALERT, ORIENTED X 4, AND HAS STEADY GAIT. Chief Complaint: Flu like Time Seen by MD: 09:12 Primary Care Provider: AD Reviewed notes: Nurses Notes, Medications, Allergies Information Source: Patient Mode of Arrival: Ambulatory Severity: Moderate Timing: Days Duration: Since onset, Days Context: Spontaneous Onset PE Risk Factors: None History of: None Prehospital treatment: None Modifying Factors: Nothing Associated Signs and Symptoms: Cough, Nasal Congestion, Sore Throat If cough with SOB: Productive Past Medical History PAST MEDICAL HISTORY: DM, High Lipids, HTN, Thyroid Surgical History: Pacemaker SPEECH TEACHER History: No Pertinent SPEECH TEACHER History Family History Family History: Reviewed,noncontributory to illness, Family hx of DM, Family hx of HTN Social History Smoker: Non-Smoker Alcohol: Denies ETOH Use Drugs: Denies Drug Use Lives In: Home Constitutional: denies: chills, diaphoresis, fatigue, fever, malaise, sweats, weakness, others EENTM: reports: nose congestion, throat pain, throat swelling; denies: blurred vision, double vision, ear bleeding, ear discharge, ear drainage, ear pain, ear ringing, eye pain, eye redness, hearing loss, mouth pain, mouth swelling, nasal discharge, nose bleeding, nose pain, photophobia, tearing, voice changes, others Respiratory: reports: cough; denies: hemoptysis, orthopnea, SOB at rest, shortness of breath, SOB with excertion, stridor, wheezing, others Cardiovascular: denies: chest pain, dizzy spells, diaphoresis, Dyspnea on exertion, edema, irregular heart beat, left arm pain, lightheadedness, palpitations, PND, syncope, others Gastrointestinal: denies: abdomen distended, abdominal pain, blood streaked bowels, constipated, diarrhea, dysphagia, difficulty swallowing, hematemesis, melena, nausea, poor appetite, poor fluid intake, rectal bleeding, rectal pain, vomiting, others Genitourinary: denies: abnormal vagina bleeding, burning, dyspareunia, dysuria, flank pain, frequency, hematuria, incontinence, pain, , vagina discharge, urgency, others Neurological: denies: dizziness, fainting, headache, left sided numbness, left sided weakness, numbness, paresthesia, pre-existing deficit, right sided numbness, right sided weakness, seizure, speech problems, tingling, tremors, weakness, others Musculoskeletal: denies: back pain, gout, joint pain, joint swelling, muscle pain, muscle stiffness, neck pain, others Integumetry: denies: bruises, change in color, change in hair/nails, dryness, laceration, lesions, lumps, rash, wounds, others Allergic/Immunocompromised: denies: Difficulty Healing, Frequent Infections, Hives, Itching, others Hematologic/Lymphatic: denies: anemia, blood clots, easy bleeding, easy bruising, swollen glands, others Endocrine: denies: excessive hunger, excessive sweating, excessive thirst, excessive urination, flushing, intolerance to cold, intolerance to heat, unexplained weight gain, unexplained weight loss, others Psychiatric: denies: anxiety, bipolar disorder, depression, hopeless, panic disorder, schizophrenia, sleepless, suicidal, others All Other Systems: Reviewed and Negative Physical Exam General Appearance: No Apparent Distress, Normal HEENT: PERRL/EOMI, Pharyngeal Erythema (TONSILLAR SWELLING, NO EXUDATES. ), TMs Normal Neck: Full Range of Motion, Non-Tender, Normal, Normal Inspection Respiratory: Chest Non-Tender, Expiration, Lungs Clear, No Accessory Muscle Use, No Respiratory Distress, Rhonchi Cardiovascular: No Edema, No JVD, No Murmur, No Gallop, Normal Peripheral Pulses, Regular Rate/Rhythm Breast Exam: Deferred Gastrointestinal: No Organomegaly, Non Tender, No Pulsatile Mass, Normal Bowel Sounds, Soft Genitalia: Deferred Pelvic: Deferred Rectal: Deferred Extremities: No calf tenderness, Normal capillary refill, Normal inspection, Normal range of motion, Non-tender, No pedal edema Musculoskeletal : Apperance: Normal Neurologic: Alert, associate merchant II-XII nml as Tested, No Motor Deficits, Normal Affect, Normal Mood, No Sensory Deficits Cerebellar Function: Normal Reflexes: Normal Skin: Dry, Normal Color, Warm Peripheral Pulses: 2+ carotid (R), 2+ carotid (L) Lymphatic: No Adenopathy Was a procedure done? Was a procedure done?: No Differential Dx Differential Diagnosis: Bronchitis, Pneumonia, Sinusitis, Allergic Rhinitis, Otitis Media, Pharyngitis, URI X-Ray, Labs, Meds, VS Vital Signs Date Time Temp Pulse Resp B/P (MAP) Pulse Ox O2 Delivery O2 Flow Rate FiO2 03/07/24 10:18 100.3 89 18 157/56 (89) 95 100.3 03/07/24 09:46 100.0 90 17 140/62 (88) 93 100.0 03/07/24 09:46 90 17 93 Room Air 03/07/24 09:10 100.0 90 17 140/62 (88) 93 EXAM: XY CHEST TWO VIEWS ROUTINE CLINICAL HISTORY: COUGH COMPARISON: None TECHNIQUE: Frontal and lateral view of the chest was obtained FINDINGS: Lines and Tubes: None Lungs: No focal consolidation. Pleura: No effusion. No pneumothorax. Cardiomediastinal contours: Unremarkable, Atherosclerotic vascular calcifications of the thoracic aorta are noted. Bones: No acute osseous abnormality. IMPRESSION: No acute cardiopulmonary disease. ATED BY: ARACELY GALEANA MD DICTATED DATE/TIME: 03/07/24958 SIGNED BY: ARACELY GALEANA MD SIGNED DATE/TIME: 03/07/24958 CC: X-Ray, Labs, Meds, VS Comment EXTERNAL MEDICAL RECORDS REVIEWED: [NONE] INDEPENDENT HISTORIANS: [NONE] SOCIAL DETERMINANTS OF HEALTH: [NONE] LABS ORDERED: NONE REVIEWED AND INTERPRETED RESULTS: NONE IMAGING ORDERED: XR CHEST TREATMENTS ORDERED: ROCEPHIN 1G IM, MOTRIN 600MG PO PROCEDURES PERFORMED: NONE CRITICAL CARE TIME: NONE I HAVE DISCUSSED THE PATIENT WITH THE ATTENDING PHYSICIAN DR. BAIG AND HE AGREES WITH THE PATIENT'S PLAN OF CARE AND DISPOSITION. BASED ON HISTORY OF PRESENT ILLNESS, AND PHYSICAL EXAM, PATIENT WILL BE DISCHARGED HOME. DISCUSSED PLAN FOR DISCHARGE HOME WITH RX [AZITHROMYCIN AND TESSALON]. MEDICATION WARNINGS GIVEN. SHARED DECISION MAKING: PATIENT INSTRUCTED TO FOLLOW UP WITH PRIMARY CARE P YUVAL IN 1-2 DAYS FOR RE-EVALUATION OF SYMPTOMS. PATIENT VERBALIZES UNDERSTANDING TO RETURN TO ED FOR NEW OR WORSENING SYMPTOMS OR IF FOLLOW UP WITH PCP CANNOT BE OBTAINED. PATIENT FEELS COMFORTABLE GOING HOME AT THIS TIME. ALL QUESTIONS ADDRESSED AT TIME OF DISCHARGE. Images Reviewed?: Images reviewed and evaluated by me Time of 1ST Reevaluation: 11:00 Reevaluation 1ST: Improved Patient Education/Counseling: Diagnosis, Treatment, Need For Follow Up Family Education/Counseling: Diagnosis, Treatment, Need For Follow Up Medical Screening: No EMC Exist At This Time Departure 1 Departure Time of Disposition: 11:00 Impression: Primary Impression: Acute tonsillitis Qualified Codes: J03.90 - Acute tonsillitis, unspecified Additional Impression: Acute bronchitis Qualified Codes: J20.9 - Acute bronchitis, unspecified Disposition: HOME / SELF CARE / HOMELESS Condition: Stable Additional Instructions: FOLLOW-UP WITH PCP IN 1 TO 2 DAYS. TAKE MEDICATIONS PRESCRIBED. RETURN TO ED FOR ANY NEW OR WORSENING SYMPTOMS. e-Prescriptions Benzonatate (Benzonatate) 200 Mg Cap 1 CAP PO TIDP, #30 CAP Prov: PRIYANK CHAWLA 03/07/24 Azithromycin (Azithromycin) 500 Mg Tab 1 TAB PO DAILY, #5 TAB Prov: PRIYANK CHAWLA 03/07/24 Discharged With: Self, Relative Critical Care Note Critical Care Time?: No Stability Stability form required: No Heart Score Heart Score: Heart Score Response (Comments) Value History N/A 0 EKG N/A 0 Age >65 2 Risk Factors N/A 0 Troponin N/A 0 Total 2 I personally scribed for PRIYANK CHAWLA ([email or web address]) on 03/07/24 at 10:16. Electronically submitted by Adalberto Hendrickson ([employer]). I personally scribed for PRIYANK CHAWLA ([email or web address]) on 03/07/24 at 10:22. Electronically submitted by Adalberto Hendrickson ([employer]). I personally scribed for PRIYANK CHAWLA ([email or web address]) on 03/07/24 at 10:23. Electronically submitted by Adalberto Hendrickson ([employer]). PRIYANK CHAWLA Mar 07, 2024 10:16
[2024-03-07 10:18] VITALS: BP 157/56; PULSE 89; RESP 18; O2SAT 95
[2024-03-07 10:33] VITALS: TEMP 100.3
[2024-03-07] MEDS: IBUPROFEN 600 MG TAB PO ONE (10:33)
[2024-03-07] MEDS: cefTRIAXone SOD 1,000 MG VL IM ONE (10:33)
== END 2024-03-07 10:50 | disposition home or self-care (01) ==
LOC: ER 08:47
DX: J20.9 Acute bronchitis, unspecified (principal); J03.90 Acute tonsillitis, unspecified; I10 Essential (primary) hypertension; E11.9 Type 2 diabetes mellitus without complications; E78.5 Hyperlipidemia, unspecified; Z95.0 Presence of cardiac pacemaker
CPT/HCPCS: 71046; 96372; 99283; J0696